=== PATIENT | male | born 1975 | race Caucasian/White ===

== ENCOUNTER 2016-02-13 17:40 | Observation (INO) | payer OTHER ==
[~2016-02-13] VITALS: Ht 165.1 cm; Wt 70.6 kg
[~2016-02-13 17:40] MED LIST: ADVI200T PO; AMBI5TAB PO; CAPS25CR TOP; CYMB1CAP4 PO; DEPA1TAB3 PO; DICL-235 PO; HYDR-4274 PO; HYDROXYZINE PO; LITH150C PO; LITH45TASA PO; No Home Meds; OLAN5TAB PO; RISP2TAB30 PO; ROBA750T4 PO; TRAZ50TA4 PO; VIST50CA PO; ZANA2CAP PO; ZOST0.25 EX; ZYPR10TA PO
[2016-02-13 19:15] LABS: BASO # 0.1 K/mm3 (0.0-0.2); BASO % 1.3 % (0.0-1.0); EOS # 0.4 K/mm3 (0.0-0.50); EOS % 4.2 % (0.0-3.0); LARGE UNSTAINED CELL # 0.2 K/mm3 (0.0-0.4); LARGE UNSTAINED CELL % 2.5 % (0.0-4.0); LYMPH # 2.8 K/mm3 (1.5-4.5); LYMPH % 29.3 % (24.0-44.0); MEAN CORPUSCULAR HEMOGLOBIN 32.1 pg (27.0-33.0); MEAN CORPUSCULAR HGB CONC 32.4 g/dl (32.0-36.5); MEAN CORPUSCULAR VOLUME 99.1 fl (80.0-96.0); MONO # 0.7 K/mm3 (0.0-0.8); NEUTROPHILS # 4.8 K/mm3 (1.8-7.7); NEUTROPHILS % 54.6 % (36.0-66.0); PLATELET COUNT, AUTOMATED 238 k/mm3 (150-450); RED CELL DISTRIBUTION WIDTH 13.4 % (11.5-14.5); WHITE BLOOD COUNT 8.9 K/mm3 (4.0-10.0)
[2016-02-13 19:27] LABS: ALBUMIN 3.7 GM/DL (3.2-5.2); ALBUMIN/GLOBULIN RATIO 1.19 (1.00-1.93); ALKALINE PHOSPHATASE 71 U/L (45-117); ALT/SGPT 19 U/L (12-78); ANION GAP 7 MEQ/L (8-16); AST/SGOT 14 U/L (15-37); BILIRUBIN,DIRECT 0.2 MG/DL (0.0-0.2); BILIRUBIN,TOTAL 0.6 MG/DL (0.2-1.0); BLOOD UREA NITROGEN 11 MG/DL (7-18); CALCIUM LEVEL 8.5 MG/DL (8.5-10.1); CARBON DIOXIDE LEVEL 28 MEQ/L (21-32); CHLORIDE LEVEL 108 MEQ/L (98-107); CREATININE FOR GFR 1.03 MG/DL (0.70-1.30); GLOMERULAR FILTRATION RATE > 60.0 (>60); GLUCOSE, FASTING 103 MG/DL (70-105); POTASSIUM SERUM 3.9 MEQ/L (3.5-5.1); SODIUM LEVEL 143 MEQ/L (136-145); TOTAL PROTEIN 6.8 GM/DL (6.4-8.2)
[2016-02-13 19:37] LABS: LITHIUM LEVEL 1.38 MEQ/L (0.60-1.20)
--- NOTE | 2016-02-13 19:50 | REPUSA ---
CLINICAL HISTORY: AMS TECHNIQUE: Multiple axial brain CT scan sections were obtained from base to vertex without contrast a dministration. COMMENTS: The study shows normal configuration of sella turcica. There are no intra or extra-axial collections. There is no mass effect or midline shift. There is no evidence of hematoma formation. No hydrocephal us is present. No abnormal calcifications are noted. Small cavum of septum pellucidum and cavum verg ae is noted. No significant abnormalities are seen either in the posterior fossa or supratentorial compartment. The sinuses and mastoid air cells are patent. IMPRESSION: No evidence of acute intracranial pathology. Thank you for your kind referral of this patient.
[2016-02-13 20:11] LABS: AMPHETAMINES LEVEL URINE POSITIVE (NEGATIVE); BENZODIAZEPINES URINE NEGATIVE (NEGATIVE); COCAINE METABOLITE URINE NEGATIVE (NEGATIVE); CONTROL LINE INT CTR LINE PRESENT; METHADONE URINE NEGATIVE (NEGATIVE); OPIATES URINE NEGATIVE (NEGATIVE); TRICYCLIC ANTIDEPRESS URINE NEGATIVE (NEGATIVE)
[2016-02-13] MEDS ORDERED: ACETAMINOPHEN TAB 650MG DOSE (2X325MG) PO PRN (21:00)
[2016-02-13] MEDS: MIRTAZAPINE 15 MG TAB PO SCH (21:00)
[2016-02-13] MEDS: GABAPENTIN 300 MG CAP PO SCH (21:00)
[2016-02-13] MEDS ORDERED: MIRT30TA3 PO (21:00)
[2016-02-13] MEDS ORDERED: LITH45TASA PO (21:00)
[2016-02-13] MEDS ORDERED: NEUR300C PO (21:00)
--- NOTE | 2016-02-13 22:15 | EDDOCDS ---
Physician Documentation [facility] Name: Thomas Berkowitz Age: 41 yrs Sex: Male : 1975 Arrival Date: 02/13/2016 Time: 17:40 Bed 10 Private MD: Marlin Hammond Disposition: 02/12 20:27 Critical Care: Critical care not applicable. pc Disposition: 02/13/16 20:32 Hospitalization ordered by Lissette Eden for Inpatient Admission. Preliminary diagnosis are Altered mental status, unspecified, Poisoning by other psychotropic drugs, accidental (unintentional) - lithium toxicity, Other stimulant abuse - amphetamines. - Bed requested for 4 [place]. - Status is Inpatient Admission. mgs - Condition is Stable. - Problem is new. - Symptoms are unchanged. HPI: 19:42 This 41 yrs old Male presents to ER via Walkin/Carried/Asstd with complaints pc of Altered Mental Status. 19:42 The history is obtained from the patient's family/friend. A reliable history and/or pc examination was not able to be obtained, due to AMS. He woke up from a nap and has been extremely drowsy, confused, slurring his speech. He is unable to give a history as he falls asleep without stimulation and when awakened, is aggressive and verbally abusive. His family deny any drug abuse or overdose but he has a history of the same. He has not had any new medications except ABX for a dental abscess and a short course of tramadol 4 weeks ago. He has not been ill, has not had any fevers, cough, GI or symptoms. At their worst, the symptoms were moderate. In the emergency department, the symptoms are unchanged. The patient has been recently seen at the [facility], last month. Historical: - Allergies: no known allergies; - Home Meds: 1. gabapentin 300 mg oral cap 3 times per day 2. lithium carbonate 450 mg Oral TbER 1 tab 2 times per day 3. mirtazapine 30 mg Oral tab 1 tab once daily 4. Seroquel Oral nightly - PMHx: Bipolar disorder; explosive impulse disorder; - PSHx: oral surgery; left foot surgery; - The history from nurses notes was reviewed: and I agree with what is documented. - Social history: Smoking status: Patient uses tobacco products, heavy tobacco smoker. No barriers to communication noted, The patient speaks fluent [place]ian, Speaks appropriately for age. - Family history: Not pertinent. - : The pt / caregiver states he / she is not on anticoagulants. Home medication list is obtained from the patient, [facility] import data. - Hospitalizations: : No recent hospitalization is reported. - Exposure Risk Screening:: None identified. - Immunization history:: All immunizations up-to-date. - Social history:: the patient is a non-smoker, the patient does not drink alcohol. ROS: 19:42 All systems are negative except as listed. pc Exam: 19:42 General Appearance: the patient is in mild distress, lethargic. pc 19:42 EENT: normal eye inspection, ears, nose and throat normal, pharynx normal, mucous membranes moist 19:42 Neck: The exam reveals no acute abnormalities. ROM is normal and painless. No nuchal rigidity is noted.. 19:42 Respiratory: no respiratory distress, normal breath sounds. 19:42 CVS: regular pulse rate, regular rhythm, normal S1 and S2, no murmurs, strong peripheral pulses. 19:42 Abdomen: soft, non-tender, no organomegaly, normal bowel sounds. 19:42 Back: normal inspection. 19:42 Skin: skin color is normal, warm, dry. 19:42 Extremities: The extremities have a grossly normal appearance, are non-tender, without acute ROM abnormalities. 19:42 Neuro: cranial nerves normal as tested, no motor deficits, no sensory deficits, normal gait, unable to test orientation because the patient is uncooperative. 19:42 Psych: aggressive, vioilent. Vital Signs: 17:42 BP 117 / 73; Pulse 104; Resp 18; Temp 97.9; Pulse Ox 98% ; Weight 68.04 kg / 150 lbs; cmb Height 5 ft. 6 in. (167.64 cm); Pain 0/10; 18:11 BP 119 / 66 (auto/); ead 18:13 Pulse 94 MON; Pulse Ox 97% ; ead 18:26 BP 117 / 64 (auto/); ead 18:26 Pulse 90 MON; Resp 16; Pulse Ox 99% on R/A; ead 18:56 BP 102 / 57 (auto/); mgs 18:56 Pulse 88 MON; Pulse Ox 99% ; mgs 19:11 BP 102 / 64 (auto/); mgs 19:11 Pulse 82 MON; Pulse Ox 97% ; mgs 19:26 BP 108 / 66 (auto/); mgs 19:26 Pulse 78 MON; Pulse Ox 96% ; mgs 19:41 BP 115 / 80 (auto/); mgs 19:41 Pulse 82 MON; mgs 19:56 BP 110 / 66 (auto/); mgs 19:56 Pulse 80 MON; Pulse Ox 99% ; mgs 20:11 BP 104 / 62 (auto/); mgs 20:11 Pulse 80 MON; Pulse Ox 97% ; mgs 20:26 BP 106 / 63 (auto/); mgs 20:26 Pulse 86 MON; Pulse Ox 97% ; mgs 20:41 BP 106 / 65 (auto/); mgs 20:41 Pulse 84 MON; Pulse Ox 98% ; mgs 20:56 BP 107 / 62 (auto/); mgs 20:56 Pulse 84 MON; Pulse Ox 100% ; mgs 21:11 BP 102 / 63 (auto/); mgs 21:11 Pulse 82 MON; Pulse Ox 100% ; mgs 21:25 BP 102 / 62 (auto/); mgs 21:25 Pulse 84 MON; Pulse Ox 100% ; mgs 21:26 BP 102 / 62; Pulse 79; Resp 18 S; Temp 97.2(O); Pulse Ox 100% on R/A; Pain 0/10; jp4 21:26 BP 105 / 61 (auto/); mgs 21:26 Pulse 78 MON; Pulse Ox 100% ; mgs 21:41 BP 100 / 58 (auto/); mgs 21:41 Pulse 82 MON; Pulse Ox 100% ; mgs 21:56 BP 102 / 60 (auto/); mgs 21:56 Pulse 80 MON; Pulse Ox 100% ; mgs 17:42 Body Mass Index 24.21 (68.04 kg, 167.64 cm) cmb MDM: 19:05 Machine Cementer/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 pc 19:05 Accucheck ordered. pc 19:05 IV Saline Lock ordered. pc 19:05 Rhythm Strip to chart ordered. pc 19:06 Acetaminophen Level Ordered. EDMS 19:06 CBC with Diff Ordered. EDMS 19:06 Cardiac Injury Profile Ordered. EDMS 19:06 Drug Eval Toxicology ED Only Ordered. EDMS 19:06 Liver Profile Ordered. EDMS 19:06 MED Profile Ordered. EDMS 19:06 Salicylate Level Ordered. EDMS 19:06 Thyroid Stimulating Hormone Ordered. EDMS 19:06 Troponin Ordered. EDMS 19:06 [place] Level Ordered. EDMS 19:07 CT Head Without Contrast Ordered. EDMS 19:07 ECG WITH READING ER PHYS+CARDIAG ordered. EDMS 19:17 Test interpretation: EKG. pc 19:22 Fingerstick Blood Sugar Ordered. EDMS 19:28 Straight cath ordered. davin 19:41 Acetaminophen Level Reviewed. pc 19:41 CBC with Diff Reviewed. pc 19:41 Cardiac Injury Profile Reviewed. pc 19:41 Liver Profile Reviewed. pc 19:41 MED Profile Reviewed. pc 19:41 Salicylate Level Reviewed. pc 19:41 [place] Level Reviewed. pc 19:41 Thyroid Stimulating Hormone Reviewed. pc 19:41 Troponin Reviewed. pc 19:41 Fingerstick Blood Sugar Reviewed. pc 19:42 Differential Diagnosis: AMS r/o drug ingestion/ICH/lithium toxicity/overdose. Plan: pc labs, EKG, CT. 20:21 Drug Eval Toxicology ED Only Reviewed. pc 20:27 Data reviewed: old medical records, vital signs, nurses notes, EKG(s), lab test pc results, all radiology studies and available results. Test interpretation: LAB - all labs as ordered have been reviewed, interpreted and considered in the overall management of the clinical presentation; interpreted by Radiologist and personally reviewed, Head CT; no acute disease. The patient has been re-examined and re-evaluated. There is no appreciated change of the patient's symptoms at this time. Physician consultation: Dr. Lissette Eden was contacted at 20:28, regarding admission, and will see patient in ED. Disposition: The historical points, examination findings, and any diagnostic results supporting the provided diagnosis, were discussed with the patient or legal guardian. The need for further work-up and/or treatment in the hospital was explained. 20:28 BED REQUEST+ADM ordered. EDMS 21:03 Financial registration complete. [email or web address] 21:03 Admission / Observation Status ordered. EDMS 21:03 REGULAR DIET ordered. EDMS 21:05 COMPLETE BLOOD COUNT Ordered. EDMS 21:05 BASIC METABOLIC PROFILE Ordered. EDMS 21:05 LITHIUM LEVEL Ordered. EDMS EC:17 Rate is 85 beats/min. Rhythm is regular, Normal Sinus Rhythm. QRS [place] is Normal. PA pc interval is normal. QRS interval is normal. QT interval is normal. No Q waves. T waves are Normal. ST Segment is elevated in leads I, II, V2, V3, V4, V5, V6, <1mm. Clinical impression: Normal Sinus Rhythm and ST-T changes consistent with early repolarization. No change from previous ECG on April 18, 2015. Point of Care Testing: Blood Glucose: 19:15 Blood Glucose: 76 mg/dL; mgs Ranges: Signatures: Dispatcher [employer] EDMS Simon Greene MD MD pc Johnson, Bruce, RN RN umair Cleary, Lucia Edge, RN RN davin Jose, OdessaNayana, Courtroom Clerk Unit ml3 Katalina SmithRN William Tsang RN RN mgs Sorenson, Kimberly, Reg Reg [id number] The chart was reviewed and I authenticate all verbal orders and agree with the evaluation and treatment provided.Corrections: (The following items were deleted from the chart) 19:21 19:17 Rate is 85 beats/min. Rhythm is regular, Normal Sinus Rhythm. QRS [place] is Normal. pc PA interval is normal. QRS interval is normal. QT interval is normal. No Q waves. T waves are Normal. No ST changes noted. Clinical impression: Normal Sinus Rhythm. pc MTDD
--- NOTE | 2016-02-13 22:15 | EDDOCDS ---
Nurse's Notes [facility] Name: Thomas Berkowitz Age: 41 yrs Sex: Male : 1975 Arrival Date: 02/13/2016 Time: 17:40 Bed 10 Private MD: Marlin Hammond Diagnosis: Altered mental status, unspecified;Poisoning by other psychotropic drugs, accidental (unintentional)-lithium toxicity;Other stimulant abuse-amphetamines Presentation: 02/12 17:56 Presenting complaint: Patient states: woke up from nap today - states unable to bcj remember things - very unsteady on feet. very drowsey after nap. denies recent fall head injury. denies ETOH / street drug use today. denies abuse of RX meds. + photophobia. Adult Sepsis Screening: Patient has new or worsening altered mentation (1 point). Patient's respiratory rate is less than 22. Systolic blood pressure is greater than 100. Patient has a qSOFA score of 1- Negative Sepsis Screen. Suicide/Homicide risk assessment- the patient denies having any suicidal and/or homicidal ideations and does not present with any other emotional, behavioral or mental health complaints. Status: Patient is not a director of business services or dependent. Transition of care: patient was not received from another setting of care. Red Flag criteria, patient assessed and taken directly to a bed. 17:56 Acuity: TEENA Level 3 [facility] 17:56 Method Of Arrival: Walkin/Carried/Asstd bcj Triage Assessment: 18:00 General: Appears in no apparent distress, comfortable, Behavior is cooperative. Pain: bcj Denies pain. HIV screening NA for this visit Offered previously. Neurological: Level of Consciousness is awake, alert, Oriented to person, time, Grain Elevator Agent are equal bilaterally Moves all extremities. Gait is unsteady, Speech is normal, Facial symmetry appears normal. Derm: Skin is pink, warm & dry. Historical: - Allergies: no known allergies; - Home Meds: 1. gabapentin 300 mg oral cap 3 times per day 2. lithium carbonate 450 mg Oral TbER 1 tab 2 times per day 3. mirtazapine 30 mg Oral tab 1 tab once daily 4. Seroquel Oral nightly - PMHx: Bipolar disorder; explosive impulse disorder; - PSHx: oral surgery; left foot surgery; - The history from nurses notes was reviewed: and I agree with what is documented. - Social history: Smoking status: Patient uses tobacco products, heavy tobacco smoker. No barriers to communication noted, The patient speaks fluent Nauruan, Speaks appropriately for age. - Family history: Not pertinent. - : The pt / caregiver states he / she is not on anticoagulants. Home medication list is obtained from the patient, Collect import data. - Hospitalizations: : No recent hospitalization is reported. - Exposure Risk Screening:: None identified. - Immunization history:: All immunizations up-to-date. - Social history:: the patient is a non-smoker, the patient does not drink alcohol. Screenin:02 Screening information is obtained from the patient. Fall risk: No risks identified. mgs Assistance ADL's: requires no assistance with activities of daily living. Abuse/DV Screen: The patient / caregiver reports he/she is: not in a situation that causes fear, pain or injury. Nutritional screening: No deficits noted. home support is adequate. 22:12 Advance Directives: Currently, there is no health care proxy. There is no active DNR mgs order. Assessment: 18:13 General: Appears in no apparent distress, unkempt, Pt answering questions ead appropriately, maintains eyes closed, states "I just feel sleepy." Pt denies alcohol or drug use today. Pt's friend at bedside reports "I think someone probably slipped him something." Pt has minimal memory of this morning prior to taking a nap this afternoon. States he is unsure where he was when he woke up. . Pain: Denies pain. Neurological: Level of Consciousness is awake, lethargic, obeys commands, Oriented to person, place, time. Cardiovascular: Capillary refill < 3 seconds Heart tones S1 S2 present Chest pain is denied. Respiratory: Airway is patent Respiratory effort is even, unlabored, Breath sounds are clear bilaterally. Derm: Skin is pink, warm & dry. 19:01 General: Appears in no apparent distress, unkempt, Behavior is drowsy, Patient keeps mgs eyes closed unless asked to open them, is very drowsy. Pain: Denies pain. Neurological: Level of Consciousness is lethargic, obeys commands, Oriented to person, place, time. Cardiovascular: Capillary refill < 3 seconds Heart tones S1 S2 present. Respiratory: Airway is patent Respiratory effort is even, unlabored, Respiratory pattern is regular, symmetrical. Derm: Skin is pink, warm & dry. 19:50 Adult Sepsis Screening: The patient does not have new or worsening altered mentation. mgs Patient's respiratory rate is less than 22. Systolic blood pressure is greater than 100. 19:51 General: Appears in no apparent distress, Behavior is drowsy. Pain: Denies pain. mgs Neurological: Level of Consciousness is awake, alert, Oriented to person, place, time. Cardiovascular: Capillary refill < 3 seconds Heart tones S1 S2 present. Respiratory: Airway is patent Respiratory effort is even, unlabored, Respiratory pattern is regular, symmetrical. Derm: Skin is pink, warm & dry. 21:04 General: Appears in no apparent distress, to be sleeping. Cardiovascular: Capillary mgs refill < 3 seconds Rhythm is sinus rhythm No ectopy. Respiratory: Airway is patent Respiratory effort is even, unlabored, Respiratory pattern is regular, symmetrical. Derm: Skin is pink, warm & dry. 22:11 General: Appears in no apparent distress, to be sleeping. Cardiovascular: Capillary mgs refill < 3 seconds. Respiratory: Airway is patent Respiratory effort is even, unlabored, Respiratory pattern is regular, symmetrical. Derm: Skin is pink, warm & dry. Vital Signs: 17:42 BP 117 / 73; Pulse 104; Resp 18; Temp 97.9; Pulse Ox 98% ; Weight 68.04 kg; Height 5 cmb ft. 6 in. (167.64 cm); Pain 0/10; 18:11 BP 119 / 66 (auto/); ead 18:13 Pulse 94 MON; Pulse Ox 97% ; ead 18:26 BP 117 / 64 (auto/); ead 18:26 Pulse 90 MON; Resp 16; Pulse Ox 99% on R/A; ead 18:56 BP 102 / 57 (auto/); mgs 18:56 Pulse 88 MON; Pulse Ox 99% ; mgs 19:11 BP 102 / 64 (auto/); mgs 19:11 Pulse 82 MON; Pulse Ox 97% ; mgs 19:26 BP 108 / 66 (auto/); mgs 19:26 Pulse 78 MON; Pulse Ox 96% ; mgs 19:41 BP 115 / 80 (auto/); mgs 19:41 Pulse 82 MON; mgs 19:56 BP 110 / 66 (auto/); mgs 19:56 Pulse 80 MON; Pulse Ox 99% ; mgs 20:11 BP 104 / 62 (auto/); mgs 20:11 Pulse 80 MON; Pulse Ox 97% ; mgs 20:26 BP 106 / 63 (auto/); mgs 20:26 Pulse 86 MON; Pulse Ox 97% ; mgs 20:41 BP 106 / 65 (auto/); mgs 20:41 Pulse 84 MON; Pulse Ox 98% ; mgs 20:56 BP 107 / 62 (auto/); mgs 20:56 Pulse 84 MON; Pulse Ox 100% ; mgs 21:11 BP 102 / 63 (auto/); mgs 21:11 Pulse 82 MON; Pulse Ox 100% ; mgs 21:25 BP 102 / 62 (auto/); mgs 21:25 Pulse 84 MON; Pulse Ox 100% ; mgs 21:26 BP 102 / 62; Pulse 79; Resp 18 S; Temp 97.2(O); Pulse Ox 100% on R/A; Pain 0/10; jp4 21:26 BP 105 / 61 (auto/); mgs 21:26 Pulse 78 MON; Pulse Ox 100% ; mgs 21:41 BP 100 / 58 (auto/); mgs 21:41 Pulse 82 MON; Pulse Ox 100% ; mgs 21:56 BP 102 / 60 (auto/); mgs 21:56 Pulse 80 MON; Pulse Ox 100% ; mgs 17:42 Body Mass Index 24.21 (68.04 kg, 167.64 cm) [facility] Vitals: 17:42 Log In Time: February 13, 2016 at 17:38. [facility] ED Course: 17:42 Patient visited by Nicole Dasilva. b 17:42 Marlin Hammond is Private Physician. b 17:42 Patient moved to Waiting b 17:42 RN notified that patient meets Red Flag criteria. b 17:54 Katalina Smith,RN is Primary Nurse. [facility] 17:54 Patient moved to 10 [facility] 17:59 Triage Initiated bcj 18:01 Patient visited by Michele Rutherford, XAVIER. j 18:13 Inserted saline lock: 18 gauge in left antecubital area and blood collected. The ead patient tolerated the procedure well. 19:03 Patient visited by William Kowalski,XAVIER. mgs 19:03 Simon Greene MD is Attending Physician. pc 19:08 Kinde Level Sent. mgs 19:08 Acetaminophen Level Sent. mgs 19:08 CBC with Diff Sent. mgs 19:08 Cardiac Injury Profile Sent. mgs 19:08 Liver Profile Sent. mgs 19:08 MED Profile Sent. mgs 19:08 Salicylate Level Sent. mgs 19:09 Thyroid Stimulating Hormone Sent. mgs 19:09 Troponin Sent. mgs 19:13 Patient visited by Dilip Quan. jp4 19:13 EKG done. (by ED staff). Reviewed by Simon Greene MD. jp4 19:17 Patient visited by Simon Greene MD. pc 19:50 Drug Eval Toxicology ED Only Sent. mgs 19:52 Patient visited by William Kowalski,XAVIER. mgs 20:25 Lissette Eden final inspection supervisor. ys2 20:32 Lissette Eden is Hospitalizing Provider. pc 20:40 CT Head Without Contrast Returned. EDMS 21:04 Patient visited by William Kowalski,XAVIER. mgs 21:27 Patient visited by Dilip Quan. jp4 22:12 The patient / caregiver is instructed regarding the plan of care and ED course. mgs 22:12 No procedures done that require assistance. mgs 22:14 Patient visited by William Kowalski,XAVIER. mgs Point of Care Testing: Blood Glucose: 19:15 Blood Glucose: 76 mg/dL; mgs Ranges: Order Results: Lab Order: Acetaminophen Level; SPEC'M 02/13/16 18:09 Test: ACETAMINOPHEN LEVEL; Value: < 2.0; Range: 10.0-30.0; Abnormal: Below low normal; Units: UG/ML; Status: F Lab Order: CBC with Diff; SPEC'M 02/13/16 18:09 Test: WHITE BLOOD COUNT; Value: 8.9; Range: 4.0-10.0; Units: K/mm3; Status: F Test: RED BLOOD COUNT; Value: 4.68; Range: 4.30-6.10; Units: M/mm3; Status: F Test: HEMOGLOBIN; Value: 15.0; Range: 14.0-18.0; Units: g/dl; Status: F Test: HEMATOCRIT; Value: 46.3; Range: 42.0-52.0; Units: %; Status: F Test: MEAN CORPUSCULAR VOLUME; Value: 99.1; Range: 80.0-96.0; Abnormal: Above high normal; Units: fl; Status: F Test: MEAN CORPUSCULAR HEMOGLOBIN; Value: 32.1; Range: 27.0-33.0; Units: pg; Status: F Test: MEAN CORPUSCULAR HGB CONC; Value: 32.4; Range: 32.0-36.5; Units: g/dl; Status: F Test: RED CELL DISTRIBUTION WIDTH; Value: 13.4; Range: 11.5-14.5; Units: %; Status: F Test: PLATELET COUNT, AUTOMATED; Value: 238; Range: 150-450; Units: k/mm3; Status: F Test: NEUTROPHILS %; Value: 54.6; Range: 36.0-66.0; Units: %; Status: F Test: LYMPH %; Value: 29.3; Range: 24.0-44.0; Units: %; Status: F Test: MONO %; Value: 8.0; Range: 0.0-5.0; Abnormal: Above high normal; Units: %; Status: F Test: EOS %; Value: 4.2; Range: 0.0-3.0; Abnormal: Above high normal; Units: %; Status: F Test: BASO %; Value: 1.3; Range: 0.0-1.0; Abnormal: Above high normal; Units: %; Status: F Test: LARGE UNSTAINED CELL %; Value: 2.5; Range: 0.0-4.0; Units: %; Status: F Test: NEUTROPHILS #; Value: 4.8; Range: 1.8-7.7; Units: K/mm3; Status: F Test: LYMPH #; Value: 2.8; Range: 1.5-4.5; Units: K/mm3; Status: F Test: MONO #; Value: 0.7; Range: 0.0-0.8; Units: K/mm3; Status: F Test: EOS #; Value: 0.4; Range: 0.0-0.50; Units: K/mm3; Status: F Test: BASO #; Value: 0.1; Range: 0.0-0.2; Units: K/mm3; Status: F Test: LARGE UNSTAINED CELL #; Value: 0.2; Range: 0.0-0.4; Units: K/mm3; Status: F Lab Order: Cardiac Injury Profile; SPEC'M 02/13/16 18:09 Test: CPK CREATINE PHOSPHOKINASE; Value: 63; Range: 39-308; Units: U/L; Status: F Test: CK-MB VALUE MASS; Value: 2.6; Range: 0.0-3.6; Units: NG/ML; Status: F Test: MB/CK RELATIVE INDEX; Value: 4.12; Range: < OR =4; Abnormal: Above high normal; Status: F Test Note: ; DIAGNOSIS CRITERIA MMB ng/ml Relative Index (RI) NON-AMI < or = 5 N/A RODRIGUEZ ZONE > 5 < or = 4 AMI > 5 > 4 Lab Order: Drug Eval Toxicology ED Only; SPEC'M 02/13/16 19:48 Test: AMPHETAMINES LEVEL URINE; Value: POSITIVE; Range: NEGATIVE; Abnormal: Above high normal; Status: F Test: BARBITURATES URINE; Value: NEGATIVE; Range: NEGATIVE; Status: F Test: BENZODIAZEPINES URINE; Value: NEGATIVE; Range: NEGATIVE; Status: F Test: CANNABINOIDS URINE; Value: NEGATIVE; Range: NEGATIVE; Status: F Test: COCAINE METABOLITE URINE; Value: NEGATIVE; Range: NEGATIVE; Status: F Test: METHADONE URINE; Value: NEGATIVE; Range: NEGATIVE; Status: F Test: OPIATES URINE; Value: NEGATIVE; Range: NEGATIVE; Status: F Test: TRICYCLIC ANTIDEPRESS URINE; Value: NEGATIVE; Range: NEGATIVE; Status: F Test Note: ; ALL PRESUMPTIVE POSITIVE FINDINGS ARE UNCONFIRMED NORMAL VALUES THRESHOLD IN NG/ML AMPHETAMINES 1000 METHAMPHETAMINES 1000 BARBITURATES 300 BENZODIAZEPINES 300 CANNABINOIDS (THC) 50 COCAINE METABOLITE 300 METHADONE 300 OPIATES 300 PHENCYCLIDINE 25 TRICYCLIC ANTIDEPRESSANTS 1000 RESULTS ARE FOR MEDICAL PURPOSES ONLY. ALL URINE SPECIMENS WILL BE SAVED FOR 3 DAYS. IF CONFIRMATION OF A PRESUMPTIVE POSTIVE SCREEN RESULT IS DESIRED, CALL CHEMISTRY ([phone]) AND REQUEST URINE TO BE SENT TO REFERENCE LAB. FOR A LIST OF CLOSELY RELATED COMPOUNDS PLEASE CALL THE LAB. Lab Order: Liver Profile; SPEC'M 02/13/16 18:09 Test: AST/SGOT; Value: 14; Range: 15-37; Abnormal: Below low normal; Units: U/L; Status: F Test: ALT/SGPT; Value: 19; Range: 12-78; Units: U/L; Status: F Test: ALKALINE PHOSPHATASE; Value: 71; Range: 45-117; Units: U/L; Status: F Test: BILIRUBIN,TOTAL; Value: 0.6; Range: 0.2-1.0; Units: MG/DL; Status: F Test: BILIRUBIN,DIRECT; Value: 0.2; Range: 0.0-0.2; Units: MG/DL; Status: F Test: TOTAL PROTEIN; Value: 6.8; Range: 6.4-8.2; Units: GM/DL; Status: F Test: ALBUMIN; Value: 3.7; Range: 3.2-5.2; Units: GM/DL; Status: F Test: ALBUMIN/GLOBULIN RATIO; Value: 1.19; Range: 1.00-1.93; Status: F Lab Order: MED Profile; SPEC'M 02/13/16 18:09 Test: GLUCOSE, FASTING; Value: 103; Range: 70-105; Units: MG/DL; Status: F Test: BLOOD UREA NITROGEN; Value: 11; Range: 7-18; Units: MG/DL; Status: F Test: CREATININE FOR GFR; Value: 1.03; Range: 0.70-1.30; Units: MG/DL; Status: F Test: GLOMERULAR FILTRATION RATE; Value: > 60.0; Range: >60; Status: F Test: SODIUM LEVEL; Value: 143; Range: 136-145; Units: MEQ/L; Status: F Test: POTASSIUM SERUM; Value: 3.9; Range: 3.5-5.1; Units: MEQ/L; Status: F Test: CHLORIDE LEVEL; Value: 108; Range: 98-107; Abnormal: Above high normal; Units: MEQ/L; Status: F Test: CARBON DIOXIDE LEVEL; Value: 28; Range: 21-32; Units: MEQ/L; Status: F Test: ANION GAP; Value: 7; Range: 8-16; Abnormal: Below low normal; Units: MEQ/L; Status: F Test: CALCIUM LEVEL; Value: 8.5; Range: 8.5-10.1; Units: MG/DL; Status: F Test Note: ; Units are mL/min/1.73 m2 Chronic Kidney Disease Staging per NKF: Stage I & II GFR >=60 Normal to Mildly Decreased Stage III GFR 30-59 Moderately Decreased Stage IV GFR 15-29 Severely Decreased Stage V GFR <15 Very Little GFR Left ESRD GFR <15 on REED OR WIND INSTRUMENT TUNER Lab Order: Salicylate Level; SPEC'M 02/13/16 18:09 Test: SALICYLATE LEVEL; Value: 2.0; Range: 5.0-30.0; Abnormal: Below low normal; Units: MG/DL; Status: F Lab Order: Thyroid Stimulating Hormone; SPEC'M 02/13/16 18:09 Test: THYROID STIMULATING HORMONE; Value: 0.711; Range: 0.358-3.740; Units: uIU/ML; Status: F Lab Order: Troponin; SPEC'02/13/16 18:09 Test: TROPONIN I; Value: < 0.02; Range: < 0.10; Units: NG/ML; Status: F Test Note: ; Troponin I Reference Interval for Siemens Watchup LOCI: 99th Percentile= 0.00-0.045 ng/ml Risk Stratification: <= 0.10 ng/ml Decreased Risk for Adverse Clinical Events. 0.10-1.50 ng/ml Increased Risk for Adverse Clinical Events. Evaluation of additional criterion and/or repeat testing in 2-6 hours is suggested to rule out myocardial damage. >= 1.50 ng/ml Indicative of Myocardial Injury. Lab Order: Kinde Level; SPEC'02/13/16 18:09 Test: LITHIUM LEVEL; Value: 1.38; Range: 0.60-1.20; Abnormal: Above high normal; Units: MEQ/L; Status: F Lab Order: Fingerstick Blood Sugar; SPEC'M 02/13/16 19:14 Test: BEDSIDE GLUCOSE; Value: 76; Range: 70-105; Units: MG/DL; Status: F Radiology Order: CT Head Without Contrast Test: CT Head Without Contrast REASON FOR EXAMINATION: AMS; ; CLINICAL HISTORY: AMS; TECHNIQUE: Multiple axial brain CT scan sections were obtained from base to vertex without contrast a; dministration.; COMMENTS:; The study shows normal configuration of sella turcica. There are no intra or extra-axial collections.; There is no mass effect or midline shift. There is no evidence of hematoma formation. No hydrocephal; us is present. No abnormal calcifications are noted. Small cavum of septum pellucidum and cavum verg; ae is noted.; No significant abnormalities are seen either in the posterior fossa or supratentorial compartment.; The sinuses and mastoid air cells are patent.; IMPRESSION:; No evidence of acute intracranial pathology.; Thank you for your kind referral of this patient.; ; Outcome: 20:32 Decision to Hospitalize by Provider. pc 22:12 Discharge Assessment: Patient awake, alert and oriented x 3. No cognitive and/or mgs functional deficits noted. Patient verbalized understanding of disposition instructions. patient administered narcotics - no. The following High Risk Discharge criteria are identified: None. Admitted to Med/Surg. Condition: stable. Property :Personal belongings accompany Pt. 22:13 CT Study completed. mgs 22:14 Patient left the ED. mgs Signatures: Dispatcher [employer] EDMS Simon Greene MD MD pc Johnson, Bruce, RN RN Nicole Sood Emily,RN RN Dilip Moreno jp4 William Kowalski,XAVIER RN Lissette Worrell ys2 LATHA
[2016-02-13 22:20] VITALS: BP 104/59
--- NOTE | 2016-02-13 23:17 | HPE ---
DATE OF ADMISSION: 02/13/2016 PRIMARY CARE PROVIDER: Marlin Hammond, Nurse Practitioner CHIEF COMPLAINT: Altered mental status. HISTORY OF THE PRESENT ILLNESS: The patient is a 41-year-old male with a past medical history significant for bipolar and explosive impulse disorder, presented to [facility] on 02/13/2016 for altered mental status. During admission, the patient had difficulty maintaining prolonged alertness and awakeness to answer the questions. Some of the patient's history obtained from the patient's twin brother who visits the patient on several occasions normally. Yesterday night, the patient went out to a friend's place, and he had a few drinks. When he woke up from a nap this morning, the patient started having elevated mood and started throwing stuff around the house. And the patient became very physically aggressive. After awhile, the patient started to have decreased alertness and awakeness and the patient became very unsteady on his feet and became very drowsy. Per the twin brother, the patient never had similar symptoms in the past. Denies any recreational drug use. Denies any head trauma. Denies any recent medication changes. Per patient, the patient does not complain of any other acute symptoms. When the patient arrived to the emergency room, vital signs were in the normal range. Urine toxicology showed positive for amphetamine. ALLERGIES: No known drug allergies. HOME MEDICATIONS: - gabapentin 300 mg by mouth three times a day - lithium 450 mg by mouth twice a day - mirtazapine 30 mg by mouth daily - Seroquel by mouth nightly; patient does not remember the dose. PAST MEDICAL HISTORY: Bipolar disorder. Explosive impulsive disorder. PAST SURGICAL HISTORY: Foot surgery. Oral surgery. SOCIAL HISTORY: The patient continues to smoke one pack daily for 16 years. Denies any alcohol use. Denies any history of marijuana use previously. Currently denied any recreational drug use. Denied any amphetamine use. REVIEW OF SYSTEMS: GENERAL: No fever, no chills. HEENT: Denies any vision change, auditory changes. CARDIOVASCULAR: Denies any chest pain. No palpitations. RESPIRATORY: Denies any shortness of breath, cough, or sputum production. GASTROINTESTINAL: Denies any nausea, vomiting, abdominal pain or diarrhea. NEUROLOGICAL: Denies any numbness or tingling. MUSCULOSKELETAL: Denies any muscle pain or joint pain. OBJECTIVE: VITAL SIGNS: Blood pressure is 117/64, pulse is 90, respirations 16, temperature is 97.9, pulse oximetry is 99% in room air. Body weight is 68 kg. Body height is 167 cm. GENERAL: The patient is drowsy, unable to maintain alertness and awakeness. Patient is oriented when he is awake. HEENT: Normocephalic, atraumatic. Extraocular motor grossly intact. CARDIOVASCULAR: Positive S1, S2, regular rate. LUNGS: Clear to auscultation bilaterally. ABDOMEN: Soft, nontender, nondistended. Bowel sounds present. No rebound, no guarding. EXTREMITIES: No edema, no cyanosis, no calf tenderness. NEUROLOGICAL: Sensation to fine touch grossly intact. Muscle strength 5/5. Cranial nerves II-XII grossly intact. LABORATORY DATA: WBC is 8.9, hemoglobin is 15, hematocrit is 46.3, platelet count is 238. Sodium 143, potassium 3.9, chloride is 108, carbon dioxide is 28, BUN 11, creatinine 1.03, GFR greater than 60, fasting glucose is 103, calcium is 8.5, total bilirubin is 0.6, direct bilirubin is 0.2. AST 14, ALT 19, alkaline phosphatase is 71. Total CK is 63. CK-MB is 2.6. Troponin I is less than 0.02. Total protein is 6.8. Albumin 3.7. TSH is 0.711. Urine toxicology is positive for amphetamine. Urine lithium level is 1.38. IMAGING STUDIES: CT of the head without contrast showed no evidence of acute intracranial pathology. ASSESSMENT AND PLAN: 1. Altered mental status. The patient will be admitted to medical-surgical floor under observation status. There are several possible etiologies. First one will be methamphetamine use. Per patient, the patient never used it before. The patient has no history of amphetamine use; however, urine toxicology screen shows positive for amphetamine. It could be the patient received illicit drugs during the democrat without knowing that. Currently, the patient may be recovering from the amphetamine use. Another possibility could be the lithium overdose. The patient has been taking lithium 450 mg by mouth twice a day for several months. Currently, the level is mildly elevated. Will continue to monitor levels. We will hold the tomorrow's morning dose due to the elevated lithium level. 2. History of bipolar disorder. Continue gabapentin, lithium, mirtazapine and Seroquel. Will adjust lithium dose according to repeated lab. 3. History of explosive impulsive disorder. See the medication on bipolar disorder. 4. Deep vein thrombosis (DVT) prophylaxis. On Lovenox. MTDD
[2016-02-14 05:55] LABS: MEAN CORPUSCULAR HEMOGLOBIN 31.9 pg (27.0-33.0); MEAN CORPUSCULAR HGB CONC 31.6 g/dl (32.0-36.5); RED CELL DISTRIBUTION WIDTH 13.2 % (11.5-14.5); WHITE BLOOD COUNT 7.6 K/mm3 (4.0-10.0)
[2016-02-14 06:00] VITALS: BP 104/68
[2016-02-14 06:14] LABS: ANION GAP 6 MEQ/L (8-16); BLOOD UREA NITROGEN 11 MG/DL (7-18); CALCIUM LEVEL 8.7 MG/DL (8.5-10.1); CARBON DIOXIDE LEVEL 28 MEQ/L (21-32); CHLORIDE LEVEL 110 MEQ/L (98-107); CREATININE FOR GFR 0.83 MG/DL (0.70-1.30); GLOMERULAR FILTRATION RATE > 60.0 (>60); GLUCOSE, FASTING 87 MG/DL (70-105); POTASSIUM SERUM 4.1 MEQ/L (3.5-5.1); SODIUM LEVEL 144 MEQ/L (136-145)
[2016-02-14 06:21] LABS: LITHIUM LEVEL 0.42 MEQ/L (0.60-1.20)
[2016-02-14] MEDS ORDERED: LITHIUM CARBONATE 450 MG **CR** TAB PO SCH ×2 (09:00→21:00)
[2016-02-14] MEDS: ENOXAPARIN 40 MG/0.4 ML SYRINGE (J1650) SC SCH (09:08)
[2016-02-14] MEDS: GABAPENTIN 300 MG CAP PO SCH ×3 (09:08→20:24)
[2016-02-14] MEDS ORDERED: SERO1TAB2 PO (09:16)
[2016-02-14] MEDS: LITHIUM CARBONATE 450 MG **CR** TAB PO SCH ×2 (11:36→20:24)
--- NOTE | 2016-02-14 11:44 | IPNPDOC ---
Text Note Date of Service The patient was seen on 02/14/16 at 11:34. NOTE Subjective: Patient is a 41 year old male with a PMHx of Bipolar disorder and explosive impulse disorder who presented to the ER with altered mental status. Patient was extremely lethargic and slow at responding. Patient's brother noted that he was at a friend's place had a few drinks. Patient then became very drowsy and unsteady on his feet. His brother noted that this was the first time this happened. Patient had no other complaints. He was admitted to [facility] surg for acute metabolic encephalopathy. Patient was seen and examined at the bedside. He was awake, drowsy but oriented x3. He denies any problems other than sleepiness. Objective: Vitals (see below) General: Sitting up in bed, awake, drowsy, oriented x3 HEENT: NC, AT CVS: RRR, +S1S2 Lungs: Fair air entry b/l, -w/r/r Abdomen: Soft, ND, NT, +BSx4 Extremities: +PPx4, - edema, - calf tenderness Assessment and plan: 1. Acute metabolic encephalopathy - possibly 2/2 medications / drug use - patient appears very drowsy, however remains oriented - denies the use of drugs - CT scan negative for acute intracranial pathology - UDS positive for amphetamines - Patient intially had a mild elevation in his lithium level, but f/u was sup- therapeutic, lithium has been restarted - will check B12, RPR, Thyroid function - will continue to monitor for now - will keep NPO until more awake 2. Bipolar disorder - c/w gabapentin, lithium, mirtazapine and seroquel 3. Explosive impulsive disorder 4. DVT prophylaxis - c/w lovenox VS,Fishbone, I+O VS, Fishbone, I+O Laboratory Tests 02/13/16 18:09 Red Blood Count 4.68, Mean Corpuscular Volume 99.1 H, Mean Corpuscular Hemoglobin 32.1, Mean Corpuscular Hemoglobin Concent 32.4, Red Cell Distribution Width 13.4, Neutrophils (%) (Auto) 54.6, Lymphocytes (%) (Auto) 29.3, Monocytes (%) (Auto) 8.0 H, Eosinophils (%) (Auto) 4.2 H, Basophils (%) ( Auto) 1.3 H, Neutrophils # (Auto) 4.8, Lymphocytes # (Auto) 2.8, Monocytes # ( Auto) 0.7, Eosinophils # (Auto) 0.4, Basophils # (Auto) 0.1 02/14/16 05:01 Red Blood Count 4.56, Mean Corpuscular Volume 101.0 H, Mean Corpuscular Hemoglobin 31.9, Mean Corpuscular Hemoglobin Concent 31.6 L, Red Cell Distribution Width 13.2, Calcium Level 8.7 Vital Signs Date Time Temp Pulse Resp B/P Pulse Ox O2 Delivery O2 Flow Rate FiO2 02/14/16 06:00 97.0 68 17 104/68 98 Room Air I&O- Last 24 Hours up to 6 AM 02/14/16 06:00 Intake Total 240 ml Output Total 0 ml Balance 240 ml AUDRA COREA MD Feb 14, 2016 11:44
[2016-02-14 12:02] LABS: RETIC HEMOGLOBIN CONTENT CHr 32.8 PG (24-36)
[2016-02-14 12:52] LABS: FOLATE 15.8 NG/ML (>5.4); VITAMIN B12 LEVEL 306 PG/ML (247-911)
[2016-02-14] MEDS: NS 1,000 ML IV SCH ×2 (13:15→22:43)
[2016-02-14 14:00] VITALS: BP 97/52
[2016-02-14 18:49] VITALS: BP 98/50
--- NOTE | 2016-02-14 19:49 | ECGEPIP ---
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
[2016-02-14] MEDS: MIRTAZAPINE 15 MG TAB PO SCH (20:24)
[2016-02-14 22:00] VITALS: BP 100/57
[2016-02-15 05:30] VITALS: BP 84/49
[2016-02-15 05:31] VITALS: BP 80/42
[2016-02-15] MEDS: NS 1,000 ML IV SCH ×2 (05:48→13:11)
[2016-02-15 06:26] VITALS: BP 96/60
[2016-02-15 06:36] LABS: MEAN CORPUSCULAR HEMOGLOBIN 32.5 pg (27.0-33.0); MEAN CORPUSCULAR HGB CONC 32.6 g/dl (32.0-36.5); MEAN CORPUSCULAR VOLUME 99.6 fl (80.0-96.0); RED CELL DISTRIBUTION WIDTH 12.5 % (11.5-14.5); WHITE BLOOD COUNT 8.4 K/mm3 (4.0-10.0)
[2016-02-15 06:55] LABS: ANION GAP 9 MEQ/L (8-16); BLOOD UREA NITROGEN 9 MG/DL (7-18); CALCIUM LEVEL 8.1 MG/DL (8.5-10.1); CARBON DIOXIDE LEVEL 25 MEQ/L (21-32); CHLORIDE LEVEL 111 MEQ/L (98-107); GLOMERULAR FILTRATION RATE > 60.0 (>60); GLUCOSE, FASTING 117 MG/DL (70-105); POTASSIUM SERUM 3.7 MEQ/L (3.5-5.1); SODIUM LEVEL 145 MEQ/L (136-145)
[2016-02-15] MEDS: ENOXAPARIN 40 MG/0.4 ML SYRINGE (J1650) SC SCH (09:28)
[2016-02-15] MEDS: LITHIUM CARBONATE 450 MG **CR** TAB PO SCH (09:28)
[2016-02-15] MEDS: GABAPENTIN 300 MG CAP PO SCH (09:28)
[2016-02-15] MEDS ORDERED: GABA-279 PO (11:25)
--- NOTE | 2016-02-15 15:17 | DSES ---
DATE OF ADMISSION: 02/13/2016 DATE OF DISCHARGE: 02/15/2016 PRIMARY CARE PROVIDER: Dr. Yuri Hammond REFERRING PHYSICIAN: None. CONSULTING PHYSICIAN: None. CONDITION UPON DISCHARGE: Stable. FINAL DIAGNOSIS: Altered mental status. PROCEDURES: None. HISTORY OF PRESENT ILLNESS: The patient is a 41-year-old male with a past medical history of bipolar disorder and explosive impulse disorder who presented to the emergency room with altered mental status. The patient was extremely lethargic and slow at responding. The patient's brother noted that he was at a friend's place, had a few drinks, and the patient then became very drowsy and unsteady on his feet. His brother noted that this is the first time this has happened. The patient had no other complaints. He was admitted to the medical/surgical floor for acute metabolic encephalopathy. HOSPITAL COURSE: 1. Acute metabolic encephalopathy, likely secondary to medications and drug abuse. The patient appeared initially very drowse. However, throughout the hospital course, he has become more awake. However, he is still a little sleepy. He denies the use of any drugs. However, urine drug screen was positive for amphetamines. CT scan of the head was negative for any acute intracranial pathology. The patient initially had a mild elevation in his lithium level but followup showed that it is subtherapeutic and lithium was reinstituted. The patient had B12 levels checked are normal, thyroid function which was within normal limits, and rapid plasma reagin (RPR) which was negative. The patient was ambulated by nursing staff and was able to walk around the entire fourth floor without any event. The patient was initially nothing by mouth and was advanced as tolerated. 2. Bipolar disorder. Continue with gabapentin, lithium, and mirtazapine as well as Seroquel. 3. Explosive impulsive disorder. 4. Deep vein thrombosis (DVT) prophylaxis. He was on Lovenox. DISCHARGE MEDICATIONS: The patient was discharged home with: - lithium 450 mg by mouth twice a day - mirtazapine 30 mg by mouth daily MEDICATIONS WHICH WERE STOPPED: Include: - gabapentin 300 mg by mouth three times a day - quetiapine 300 mg by mouth at bedtime NEW MEDICATIONS WHICH WERE INSTITUTED: Gabapentin 100 mg by mouth three times a day. DISCHARGE INSTRUCTIONS: The patient was advised to followup with his primary care provider and psychiatry within the next seven days. He was advised to confirm/schedule appointment. He was advised to remain compliant with treatment plan and medications and return to the emergency room if he experiences any problems. CODE STATUS: Full code. TIME SPENT ON DISCHARGE: 35 minutes.
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
--- NOTE | 2016-02-15 23:17 | EDDOCDS ---
Physician Documentation [facility] Name: Thomas Berkowitz Age: 41 yrs Sex: Male : 1975 Arrival Date: 02/13/2016 Time: 17:40 Bed 10 Private MD: Marlin Hammond Disposition: 02/12 20:27 Critical Care: Critical care not applicable. pc Disposition: 02/13/16 20:32 Hospitalization ordered by Lissette Eden for Inpatient Admission. Preliminary diagnosis are Altered mental status, unspecified, Poisoning by other psychotropic drugs, accidental (unintentional) - lithium toxicity, Other stimulant abuse - amphetamines. - Bed requested for 4 [place]. - Status is Inpatient Admission. mgs - Condition is Stable. - Problem is new. - Symptoms are unchanged. HPI: 19:42 This 41 yrs old Male presents to ER via Walkin/Carried/Asstd with complaints pc of Altered Mental Status. 19:42 The history is obtained from the patient's family/friend. A reliable history and/or pc examination was not able to be obtained, due to AMS. He woke up from a nap and has been extremely drowsy, confused, slurring his speech. He is unable to give a history as he falls asleep without stimulation and when awakened, is aggressive and verbally abusive. His family deny any drug abuse or overdose but he has a history of the same. He has not had any new medications except ABX for a dental abscess and a short course of tramadol 4 weeks ago. He has not been ill, has not had any fevers, cough, GI or symptoms. At their worst, the symptoms were moderate. In the emergency department, the symptoms are unchanged. The patient has been recently seen at the [facility], last month. Historical: - Allergies: no known allergies; - Home Meds: 1. gabapentin 300 mg oral cap 3 times per day 2. lithium carbonate 450 mg Oral TbER 1 tab 2 times per day 3. mirtazapine 30 mg Oral tab 1 tab once daily 4. Seroquel Oral nightly - PMHx: Bipolar disorder; explosive impulse disorder; - PSHx: oral surgery; left foot surgery; - The history from nurses notes was reviewed: and I agree with what is documented. - Social history: Smoking status: Patient uses tobacco products, heavy tobacco smoker. No barriers to communication noted, The patient speaks fluent Iraqi, Speaks appropriately for age. - Family history: Not pertinent. - : The pt / caregiver states he / she is not on anticoagulants. Home medication list is obtained from the patient, [employer] import data. - Hospitalizations: : No recent hospitalization is reported. - Exposure Risk Screening:: None identified. - Immunization history:: All immunizations up-to-date. - Social history:: the patient is a non-smoker, the patient does not drink alcohol. ROS: 19:42 All systems are negative except as listed. pc Exam: 19:42 General Appearance: the patient is in mild distress, lethargic. pc 19:42 EENT: normal eye inspection, ears, nose and throat normal, pharynx normal, mucous membranes moist 19:42 Neck: The exam reveals no acute abnormalities. ROM is normal and painless. No nuchal rigidity is noted.. 19:42 Respiratory: no respiratory distress, normal breath sounds. 19:42 CVS: regular pulse rate, regular rhythm, normal S1 and S2, no murmurs, strong peripheral pulses. 19:42 Abdomen: soft, non-tender, no organomegaly, normal bowel sounds. 19:42 Back: normal inspection. 19:42 Skin: skin color is normal, warm, dry. 19:42 Extremities: The extremities have a grossly normal appearance, are non-tender, without acute ROM abnormalities. 19:42 Neuro: cranial nerves normal as tested, no motor deficits, no sensory deficits, normal gait, unable to test orientation because the patient is uncooperative. 19:42 Psych: aggressive, vioilent. Vital Signs: 17:42 BP 117 / 73; Pulse 104; Resp 18; Temp 97.9; Pulse Ox 98% ; Weight 68.04 kg / 150 lbs; cmb Height 5 ft. 6 in. (167.64 cm); Pain 0/10; 18:11 BP 119 / 66 (auto/); ead 18:13 Pulse 94 MON; Pulse Ox 97% ; ead 18:26 BP 117 / 64 (auto/); ead 18:26 Pulse 90 MON; Resp 16; Pulse Ox 99% on R/A; ead 18:56 BP 102 / 57 (auto/); mgs 18:56 Pulse 88 MON; Pulse Ox 99% ; mgs 19:11 BP 102 / 64 (auto/); mgs 19:11 Pulse 82 MON; Pulse Ox 97% ; mgs 19:26 BP 108 / 66 (auto/); mgs 19:26 Pulse 78 MON; Pulse Ox 96% ; mgs 19:41 BP 115 / 80 (auto/); mgs 19:41 Pulse 82 MON; mgs 19:56 BP 110 / 66 (auto/); mgs 19:56 Pulse 80 MON; Pulse Ox 99% ; mgs 20:11 BP 104 / 62 (auto/); mgs 20:11 Pulse 80 MON; Pulse Ox 97% ; mgs 20:26 BP 106 / 63 (auto/); mgs 20:26 Pulse 86 MON; Pulse Ox 97% ; mgs 20:41 BP 106 / 65 (auto/); mgs 20:41 Pulse 84 MON; Pulse Ox 98% ; mgs 20:56 BP 107 / 62 (auto/); mgs 20:56 Pulse 84 MON; Pulse Ox 100% ; mgs 21:11 BP 102 / 63 (auto/); mgs 21:11 Pulse 82 MON; Pulse Ox 100% ; mgs 21:25 BP 102 / 62 (auto/); mgs 21:25 Pulse 84 MON; Pulse Ox 100% ; mgs 21:26 BP 102 / 62; Pulse 79; Resp 18 S; Temp 97.2(O); Pulse Ox 100% on R/A; Pain 0/10; jp4 21:26 BP 105 / 61 (auto/); mgs 21:26 Pulse 78 MON; Pulse Ox 100% ; mgs 21:41 BP 100 / 58 (auto/); mgs 21:41 Pulse 82 MON; Pulse Ox 100% ; mgs 21:56 BP 102 / 60 (auto/); mgs 21:56 Pulse 80 MON; Pulse Ox 100% ; mgs 17:42 Body Mass Index 24.21 (68.04 kg, 167.64 cm) cmb MDM: 19:05 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 pc 19:05 Accucheck ordered. pc 19:05 IV Saline Lock ordered. pc 19:05 Rhythm Strip to chart ordered. pc 19:06 Acetaminophen Level Ordered. EDMS 19:06 CBC with Diff Ordered. EDMS 19:06 Cardiac Injury Profile Ordered. EDMS 19:06 Drug Eval Toxicology ED Only Ordered. EDMS 19:06 Liver Profile Ordered. EDMS 19:06 MED Profile Ordered. EDMS 19:06 Salicylate Level Ordered. EDMS 19:06 Thyroid Stimulating Hormone Ordered. EDMS 19:06 Troponin Ordered. EDMS 19:06 [place] Level Ordered. EDMS 19:07 CT Head Without Contrast Ordered. EDMS 19:07 ECG WITH READING ER PHYS+CARDIAG ordered. EDMS 19:17 Test interpretation: EKG. pc 19:22 Fingerstick Blood Sugar Ordered. EDMS 19:28 Straight cath ordered. davin 19:41 Acetaminophen Level Reviewed. pc 19:41 CBC with Diff Reviewed. pc 19:41 Cardiac Injury Profile Reviewed. pc 19:41 Liver Profile Reviewed. pc 19:41 MED Profile Reviewed. pc 19:41 Salicylate Level Reviewed. pc 19:41 [place] Level Reviewed. pc 19:41 Thyroid Stimulating Hormone Reviewed. pc 19:41 Troponin Reviewed. pc 19:41 Fingerstick Blood Sugar Reviewed. pc 19:42 Differential Diagnosis: AMS r/o drug ingestion/ICH/lithium toxicity/overdose. Plan: pc labs, EKG, CT. 20:21 Drug Eval Toxicology ED Only Reviewed. pc 20:27 Data reviewed: old medical records, vital signs, nurses notes, EKG(s), lab test pc results, all radiology studies and available results. Test interpretation: LAB - all labs as ordered have been reviewed, interpreted and considered in the overall management of the clinical presentation; interpreted by Radiologist and personally reviewed, Head CT; no acute disease. The patient has been re-examined and re-evaluated. There is no appreciated change of the patient's symptoms at this time. Physician consultation: Dr. Lissette Eden was contacted at 20:28, regarding admission, and will see patient in ED. Disposition: The historical points, examination findings, and any diagnostic results supporting the provided diagnosis, were discussed with the patient or legal guardian. The need for further work-up and/or treatment in the hospital was explained. 20:28 BED REQUEST+ADM ordered. EDMS 21:03 Financial registration complete. [email or web address] 21:03 Admission / Observation Status ordered. EDMS 21:03 REGULAR DIET ordered. EDMS 21:05 COMPLETE BLOOD COUNT Ordered. EDMS 21:05 BASIC METABOLIC PROFILE Ordered. EDMS 21:05 LITHIUM LEVEL Ordered. EDMS 22:38 [facility] Payment Agreement was scanned into [employer] and attached to record. [email or web address] 11:17 ECG/EKG was scanned into [employer] and attached to record. EC/03 19:17 Rate is 85 beats/min. Rhythm is regular, Normal Sinus Rhythm. QRS [place] is Normal. CO pc interval is normal. QRS interval is normal. QT interval is normal. No Q waves. T waves are Normal. ST Segment is elevated in leads I, II, V2, V3, V4, V5, V6, <1mm. Clinical impression: Normal Sinus Rhythm and ST-T changes consistent with early repolarization. No change from previous ECG on April 18, 2015. Point of Care Testing: Blood Glucose: 19:15 Blood Glucose: 76 mg/dL; mgs Ranges: Signatures: Dispatcher [employer] EDMS Simon Greene MD MD pc Johnson, Bruce, RN Lucia Cotton, RN Shruthi Soliz, Reg Reg gb Damon, Josse, Lift Manager Unit ml3 Katalina Smith RN RN ead Sheldon, Matthew, RN RN mgs Sorenson, Kimberly, Reg Reg [email or web address] The chart was reviewed and I authenticate all verbal orders and agree with the evaluation and treatment provided.Corrections: (The following items were deleted from the chart) 19:21 19:17 Rate is 85 beats/min. Rhythm is regular, Normal Sinus Rhythm. QRS [place] is Normal. pc CO interval is normal. QRS interval is normal. QT interval is normal. No Q waves. T waves are Normal. No ST changes noted. Clinical impression: Normal Sinus Rhythm. pc Attachments: 22:38 [facility] Payment Agreement ks02/13 11:17 ECG/EKG Chart [facility]
== END 2016-02-15 14:18 | disposition home or self-care (01) ==
LOC: M ED 17:40 → M ED INP 20:55 → M MSPAV 22:23
PROVIDERS: ADMIT Internal Medicine; ATTEND Internal Medicine
DX: G92 Toxic encephalopathy (principal); T56.91XA Toxic effect of unspecified metal, accidental (unintentional), initial encounter; F31.9 Bipolar disorder, unspecified; F63.81 Intermittent explosive disorder; Z79.899 Other long term (current) drug therapy; F17.210 Nicotine dependence, cigarettes, uncomplicated
CPT/HCPCS: 36415; 70450; 80048; 80076; 80178; 80306; 82550; 82553; 82607; 82746; 84439; 84443; 84480; 85025; 85027; 85046; 86780; 93005; 93041; 96372; 99285; G0480; J1650

== ENCOUNTER 2016-05-01 20:51 | Emergency (ER) | payer OTHER, SELFPAY ==
[~2016-05-01] VITALS: Ht 167.6 cm; Wt 63.5 kg
[~2016-05-01 20:51] MED LIST changes: -CAPS25CR TOP; +GABA-279 PO; +MIRT30TA3 PO; +NEUR300C PO; +SERO1TAB2 PO; +TRIX0.022 TOP
[2016-05-01 20:52] VITALS: BP 147/82
[2016-05-01] MEDS ORDERED: PERM5CR TOP (22:59)
== END 2016-05-01 23:07 | disposition home or self-care (01) ==
LOC: M ED 22:01
DX: B85.0 Pediculosis due to Pediculus humanus capitis (principal); F99 Mental disorder, not otherwise specified; F17.210 Nicotine dependence, cigarettes, uncomplicated; Z79.899 Other long term (current) drug therapy

== ENCOUNTER 2016-05-06 10:24 | Emergency (ER) | payer OTHER, SELFPAY ==
[~2016-05-06] VITALS: Ht 165.1 cm; Wt 63.5 kg
[~2016-05-06 10:24] MED LIST changes: +PERM5CR TOP
[2016-05-06 12:42] LABS: MEAN CORPUSCULAR HEMOGLOBIN 31.8 pg (27.0-33.0); MEAN CORPUSCULAR HGB CONC 32.6 g/dl (32.0-36.5); MEAN CORPUSCULAR VOLUME 97.5 fl (80.0-96.0); RED CELL DISTRIBUTION WIDTH 12.1 % (11.5-14.5); WHITE BLOOD COUNT 7.2 K/mm3 (4.0-10.0)
[2016-05-06 12:46] LABS: ALBUMIN 3.4 GM/DL (3.2-5.2); ALBUMIN/GLOBULIN RATIO 1.26 (1.00-1.93); ALKALINE PHOSPHATASE 77 U/L (45-117); ALT/SGPT 29 U/L (12-78); ANION GAP 8 MEQ/L (8-16); AST/SGOT 21 U/L (15-37); BILIRUBIN,DIRECT < 0.1 MG/DL (0.0-0.2); BILIRUBIN,TOTAL 0.1 MG/DL (0.2-1.0); BLOOD UREA NITROGEN 11 MG/DL (7-18); CALCIUM LEVEL 8.2 MG/DL (8.5-10.1); CARBON DIOXIDE LEVEL 28 MEQ/L (21-32); CHLORIDE LEVEL 109 MEQ/L (98-107); CREATININE FOR GFR 0.76 MG/DL (0.70-1.30); GLOMERULAR FILTRATION RATE > 60.0 (>60); GLUCOSE, FASTING 78 MG/DL (70-105); POTASSIUM SERUM 3.5 MEQ/L (3.5-5.1); SODIUM LEVEL 145 MEQ/L (136-145); TOTAL PROTEIN 6.1 GM/DL (6.4-8.2)
[2016-05-06 14:41] VITALS: BP 126/75
[2016-05-06 15:56] LABS: METHADONE URINE NEGATIVE (NEGATIVE)
== END 2016-05-06 19:48 | disposition home or self-care (01) ==
LOC: M ED 12:05
DX: F19.10 Other psychoactive substance abuse, uncomplicated (principal); F22 Delusional disorders
CPT/HCPCS: 80048; 80076; 80306; 84443; 85027; 99284; G0480

== ENCOUNTER 2016-07-05 11:02 | Emergency (ER) | payer OTHER ==
[~2016-07-05] VITALS: Ht 167.6 cm; Wt 63.5 kg
[~2016-07-05 11:02] MED LIST changes: -KEFL500C7 PO; -TRAM50TA2 PO
[2016-07-05 11:03] VITALS: BP 119/83
[2016-07-05] MEDS ORDERED: traMADol 50 MG TAB PO ONE (12:00)
[2016-07-05] MEDS ORDERED: TRAM50TA2 PO (12:00)
== END 2016-07-05 12:19 | disposition home or self-care (01) ==
LOC: M ED 11:55
DX: S16.1XXA Strain of muscle, fascia and tendon at neck level, initial encounter (principal); X50.0XXA Overexertion from strenuous movement or load, initial encounter; Y92.89 Other specified places as the place of occurrence of the external cause; Y93.89 Activity, other specified; Y99.8 Other external cause status; G89.29 Other chronic pain; F31.9 Bipolar disorder, unspecified; F17.210 Nicotine dependence, cigarettes, uncomplicated

== ENCOUNTER → 2016-07-05 | Outpatient (CLI) | payer OTHER ==
[~2016-07-05] MED LIST changes: +KEFL500C7 PO; +TRAM50TA2 PO
== END ==
LOC: M RAD 09:49
PROVIDERS: ATTEND Family Medicine Addiction Medicine
DX: M54.5 Low back pain (principal)

== ENCOUNTER 2016-07-16 21:34 | Emergency (ER) | payer OTHER ==
[~2016-07-16] VITALS: Ht 167.6 cm; Wt 65.8 kg
[~2016-07-16 21:34] MED LIST changes: +TRAM50TA2 PO
[2016-07-16 21:35] VITALS: BP 121/64
[2016-07-16] MEDS ORDERED: CEPHALEXIN 500 MG CAP PO ONE (23:00)
[2016-07-16] MEDS ORDERED: KEFL500C7 PO (23:00)
== END 2016-07-16 23:08 | disposition home or self-care (01) ==
LOC: M ED 22:36
DX: S40.851A Superficial foreign body of right upper arm, initial encounter (principal); X58.XXXA Exposure to other specified factors, initial encounter; Y92.89 Other specified places as the place of occurrence of the external cause; Y93.89 Activity, other specified; Y99.8 Other external cause status; M54.2 Cervicalgia; F31.9 Bipolar disorder, unspecified

== ENCOUNTER → 2016-07-17 | Outpatient (CLI) | payer OTHER ==
[~2016-07-17] MED LIST changes: +KEFL500C7 PO
--- NOTE | 2016-07-18 01:58 | REP ---
Clinical: Cervicalgia Technique: AP, lateral, open mouth views. Findings: Alignment is maintained. Vertebral bodies are intact. No acute fracture / compression injury or subluxation. Minimal disc space narrowing at the C5-6 level with subtle early anterior spurring noted. Remainder examination is normal for age. Impression: Minimal early degenerative changes at the C5-6 level suggested. Signed by Cody Sherwood MD 07/18/2016 01:49 A
== END ==
LOC: M RAD 22:12
PROVIDERS: ATTEND Family Medicine Addiction Medicine
DX: M50.30 Other cervical disc degeneration, unspecified cervical region (principal)

== ENCOUNTER 2016-07-22 17:43 | Emergency (ER) | payer OTHER ==
[~2016-07-22] VITALS: Ht 165.1 cm; Wt 71.3 kg
[2016-07-22 17:45] VITALS: BP 105/67
[2016-07-22] MEDS ORDERED: KETOROLAC 60 MG/2 ML VIAL (J1885) IM ONE (19:45)
== END 2016-07-22 20:12 | disposition home or self-care (01) ==
LOC: M ED 19:55
DX: M54.12 Radiculopathy, cervical region (principal); F19.10 Other psychoactive substance abuse, uncomplicated; F31.9 Bipolar disorder, unspecified; R51 Headache; F17.200 Nicotine dependence, unspecified, uncomplicated

== ENCOUNTER 2016-07-30 03:57 | Emergency (ER) | payer OTHER ==
[~2016-07-30] VITALS: Ht 165.1 cm; Wt 63.0 kg
[2016-07-30 04:01] VITALS: BP 121/67
[2016-07-30] MEDS ORDERED: LITH45TASA PO (04:09)
[2016-07-30] MEDS ORDERED: CIPRODEX OTIC SUSP 7.5ML AD ONE (05:30)
[2016-07-30] MEDS ORDERED: CIPRODEX AD (05:31)
== END 2016-07-30 05:49 | disposition home or self-care (01) ==
LOC: M ED 04:49
DX: H60.501 Unspecified acute noninfective otitis externa, right ear (principal)

== ENCOUNTER 2016-08-02 21:46 | Emergency (ER) | payer OTHER ==
[~2016-08-02] VITALS: Ht 165.1 cm; Wt 72.5 kg
[~2016-08-02 21:46] MED LIST changes: +CIPRODEX AD
[2016-08-02 21:47] VITALS: BP 137/72
[2016-08-02] MEDS ORDERED: INDO25CA PO (22:50)
== END 2016-08-02 23:10 | disposition home or self-care (01) ==
LOC: M ED 22:22
DX: G89.29 Other chronic pain (principal); M54.2 Cervicalgia

== ENCOUNTER 2016-08-07 11:59 | Emergency (ER) | payer OTHER ==
[~2016-08-07] VITALS: Ht 167.6 cm; Wt 66.5 kg
[~2016-08-07 11:59] MED LIST changes: +INDO25CA PO
[2016-08-07 12:02] VITALS: BP 128/76
--- NOTE | 2016-08-07 13:23 | ED PDOC ---
Post-Departure Follow-Up PT PRESENTS TODAY STATING HE HAS A BUG PROBLEM AT HOME AND THAT NO ONE WILL HELP HIM WITH THIS. STATES HE HAS NO PROBLEMS OUTSIDE OF HIS HOME, "BUT SOON I WALK IN THE DOOR, THEY ARE ON ME AGAIN." STATES HAS BEEN WAKING UP AT NIGHT TIME AND HAS BUGS IN HIS MOUTH THAT HE IS SPITTING OUT. PT HAS EMESIS BAG IN EXAM ROOM WITH SALIVA INSIDE. STATES, "I KNOW I HAVE MORE BUGS IN MY MOUTH RIGHT NOW. I THINK THEY ARE SUPER LICE BECAUSE NORMAL TREATMENTS DON'T WORK, I HAVE TO USE THAT NIX STUFF." STATES HE IS SUPPOSED TO BE GOING TO [facility] FOR REHAB AND THEY WILL NOT EXCEPT HIM WITH A COMPLAINT OF BUGS SO HE WAS HOPING, " A DOCTOR COULD DIAGNOSE ME WITH THESE BUGS SO WE KNOW WHAT WE ARE DEALING WITH. " NO BUGS/LICE/INSECT BITES FOUND ON EXAM. PT'S MOUTH EMPTY WITHOUT ANY SIGNS OF BUGS. ESTELLE MERA PA-C Aug 07, 2016 13:23
== END 2016-08-07 13:25 | disposition home or self-care (01) ==
LOC: M ED 11:59
DX: F22 Delusional disorders (principal)

== ENCOUNTER 2016-08-12 12:23 | Emergency (ER) | payer OTHER ==
[~2016-08-12] VITALS: Ht 165.1 cm; Wt 63.6 kg
[~2016-08-12 12:23] MED LIST changes: -HYDR-4274 PO; +HYDR50TA70 PO; +KEFL500C17 PO; -KEFL500C7 PO; -RISP2TAB30 PO; +RISP2TAB32 PO; +TRAZ50TA11 PO; -TRAZ50TA4 PO
[2016-08-12 13:27] LABS: MEAN CORPUSCULAR HEMOGLOBIN 33.3 pg (27.0-33.0); MEAN CORPUSCULAR HGB CONC 33.7 g/dl (32.0-36.5); MEAN CORPUSCULAR VOLUME 98.8 fl (80.0-96.0); RED CELL DISTRIBUTION WIDTH 12.2 % (11.5-14.5); WHITE BLOOD COUNT 6.6 K/mm3 (4.0-10.0)
[2016-08-12 14:07] LABS: METHADONE URINE NEGATIVE (NEGATIVE)
[2016-08-12 14:15] LABS: ALBUMIN 3.9 GM/DL (3.2-5.2); ALBUMIN/GLOBULIN RATIO 1.26 (1.00-1.93); ALKALINE PHOSPHATASE 69 U/L (45-117); ALT/SGPT 23 U/L (12-78); ANION GAP 6 MEQ/L (8-16); AST/SGOT 17 U/L (15-37); BILIRUBIN,DIRECT < 0.1 MG/DL (0.0-0.2); BILIRUBIN,TOTAL 0.6 MG/DL (0.2-1.0); BLOOD UREA NITROGEN 9 MG/DL (7-18); CARBON DIOXIDE LEVEL 27 MEQ/L (21-32); CHLORIDE LEVEL 105 MEQ/L (98-107); CREATININE FOR GFR 0.95 MG/DL (0.70-1.30); GLOMERULAR FILTRATION RATE > 60.0 (>60); GLUCOSE, FASTING 90 MG/DL (70-105); POTASSIUM SERUM 4.2 MEQ/L (3.5-5.1); SODIUM LEVEL 138 MEQ/L (136-145)
[2016-08-12 14:30] LABS: LITHIUM LEVEL 0.41 MEQ/L (0.60-1.20)
[2016-08-12 16:17] VITALS: BP 137/76
== END 2016-08-12 16:36 | disposition home or self-care (01) ==
LOC: M ED 12:23
DX: S80.861A Insect bite (nonvenomous), right lower leg, initial encounter (principal); F10.10 Alcohol abuse, uncomplicated; F12.10 Cannabis abuse, uncomplicated; F31.9 Bipolar disorder, unspecified; W57.XXXA Bitten or stung by nonvenomous insect and other nonvenomous arthropods, initial encounter; Y92.099 Unspecified place in other non-institutional residence as the place of occurrence of the external cause; Y93.89 Activity, other specified; Y99.9 Unspecified external cause status

== ENCOUNTER 2016-09-16 17:44 | Inpatient (IN) | payer OTHER ==
[~2016-09-16] VITALS: Ht 165.1 cm; Wt 80.2 kg
[2016-09-16] MEDS ORDERED: LORazepam 0.5 MG TAB PO ONE (19:00)
[2016-09-16 19:20] LABS: MEAN CORPUSCULAR HEMOGLOBIN 32.6 pg (27.0-33.0); MEAN CORPUSCULAR HGB CONC 33.7 g/dl (32.0-36.5); MEAN CORPUSCULAR VOLUME 96.7 fl (80.0-96.0); RED CELL DISTRIBUTION WIDTH 12.9 % (11.5-14.5); WHITE BLOOD COUNT 9.3 K/mm3 (4.0-10.0)
[2016-09-16 19:43] LABS: METHADONE URINE NEGATIVE (NEGATIVE)
[2016-09-16 19:54] LABS: ALBUMIN 3.8 GM/DL (3.2-5.2); ALBUMIN/GLOBULIN RATIO 1.41 (1.00-1.93); ALKALINE PHOSPHATASE 81 U/L (45-117); ALT/SGPT 25 U/L (12-78); ANION GAP 9 MEQ/L (8-16); AST/SGOT 13 U/L (15-37); BILIRUBIN,DIRECT 0.1 MG/DL (0.0-0.2); BILIRUBIN,TOTAL 0.5 MG/DL (0.2-1.0); BLOOD UREA NITROGEN 8 MG/DL (7-18); CALCIUM LEVEL 9.1 MG/DL (8.5-10.1); CARBON DIOXIDE LEVEL 26 MEQ/L (21-32); CHLORIDE LEVEL 105 MEQ/L (98-107); CREATININE FOR GFR 1.03 MG/DL (0.70-1.30); GLOMERULAR FILTRATION RATE > 60.0 (>60); GLUCOSE, FASTING 124 MG/DL (70-105); POTASSIUM SERUM 3.7 MEQ/L (3.5-5.1); SODIUM LEVEL 140 MEQ/L (136-145); TOTAL PROTEIN 6.5 GM/DL (6.4-8.2)
[2016-09-16] MEDS ORDERED: CLON-412 PO (20:43)
[2016-09-16] MEDS ORDERED: IBUP40TA PO (20:43)
[2016-09-16] MEDS ORDERED: GABA-282 PO (20:43)
[2016-09-16] MEDS ORDERED: LITH600C PO (20:43)
[2016-09-16] MEDS ORDERED: DIPH25CA PO (20:43)
[2016-09-16] MEDS ORDERED: HYDR1CAP25 PO (20:43)
[2016-09-16] MEDS ORDERED: OLANZapine 5 MG TAB PO PRN (20:45)
[2016-09-16] MEDS ORDERED: diphenhydrAMINE 25 MG CAP PO PRN (20:45)
[2016-09-16] MEDS ORDERED: MOM 30ML SUSPENSION UDC PO PRN (20:45)
[2016-09-16] MEDS ORDERED: MAALOX 30 ML SUSP *UDC PO PRN (20:45)
[2016-09-16] MEDS ORDERED: HALOPERIDOL 5 MG TAB PO SCH (21:00)
[2016-09-16 22:38] VITALS: BP 113/61
[2016-09-17] MEDS: HALOPERIDOL 10 MG TAB PO SCH ×3 (00:26→21:46)
[2016-09-17] MEDS: LORazepam 1 MG TAB PO SCH ×4 (00:26→21:46)
[2016-09-17 06:45] VITALS: BP 113/61
[2016-09-17] MEDS: CHLORHEXIDINE GLUCONATE 0.12 % 15ML UDC (PERIDEX ORAL RINSE) SSP SCH ×3 (09:00→21:45)
[2016-09-17] MEDS: CitaloPRAM (CeleXA) 10 MG TABLET PO SCH (09:12)
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
[2016-09-17] MEDS: LITHIUM CARBONATE 600 MG CAP PO SCH ×2 (10:09→21:46)
--- NOTE | 2016-09-17 10:33 | HPEPDOC ---
Medical History and Physical Date of Admission Sep 16, 2016 at 20:41 History and Physical DATE OF ADMISSION: 04/18/15 PCP: Dr Radha Hobson ATTENDING: Dr. Chauncey Vazquez HPI: 41yoM admitted to [facility] for unspecified mood disorder, being medically examined today. Patient states he is having dental pain, the upper left front tooth is painful. He states he has not had a dental appointment recently however was previously seen by [facility] [place]. Denies any fevers, chills, weakness, fatigue, DE JESUS, CP, SOB, cough, palpitations, abdominal pain, N/V /D or changes in bowel or bladder habits. PMHx: Bipolar disorder Explosive impulse disorder Neck pain Low back pain Poor dentition Substance use Tobacco use PSHX: Left foot surgery SOCHX: Resides in: [facility] Marital Status: Single Kids: 1 Employment: unemployed Tobacco use: One to 2 pack per day ETOH: Denies Illicit Drugs: States recently using methamphetamine. History of Marijuana 3-4 x per day. Recently released from [facility] earlier this week. IV Drug Use: Denies Tattoos done unprofessionally: Denies FAMHX: Mother: Unknown Father: 60s Alive, well Siblings: One brother Alive, well Children: Alive, well Unexpected deaths due to medical reasons: None. ROS: As noted in HPI, otherwise 11pt ROS of systems reviewed and unremarkable. PE: GEN: 40yoM, appears stated age. No acute distress. Alert and oriented x 3. Disheveled appearing, avoids eye contact. HEENT: Normocephalic, atraumatic. Pupils are equal, round, and reactive to light. Extraocular movements are intact. No nystagmus appreciated. Sclera are nonicteric. Conjunctiva without injection. Nose midline. Nasal turbinates without bogginess. EACs both patent BL. TMs both visualized and mascorro with good cone of light, no bulging or erythema. No facial asymmetry. Moist mucous membranes. Dentition very poor, erythema noted around the left upper front tooth. Pharynx pink and moist. Neck supple, trachea midline. No lymphadenopathy or thyromegaly appreciated. CHEST: Regular rate and rhythm, +S1, +S2 LUNGS: Clear to auscultation bilaterally. No wheezes, rales, or rhonchi. Breathing appears symmetric and easy. Patient is speaking in full sentences. No accessory muscle use. ABD: Round, soft, non-tender, non-distended. +Bowel sounds throughout. No rebound or guarding. No costovertebral angle tenderness. EXT: Pulses 2+ bilaterally dorsalis pedis and radial. No lower extremity edema appreciated. SKIN: [place], dry, warm. Capillary refill <2sec. No rashes. NEURO: No focal deficits appreciated. EKG: Pending. A&P: 40yoM admitted to [facility] for major depressive disorder 1. Psych. Plan per Psychiatry. EKG pending 2. Nicotine dependence. Patch available. 3. Follow up with PCP on discharge. 4. Substance use. Per psychiatry. 5. Poor dentition/dental infection. Add Augmentin 875 mg by mouth twice a day 10 days. Chlorhexidine mouthwash 3 times a day. Ensure appointment with dental provider at discharge. Tylenol 650 mg every 6 hours as needed. 6. Chronic pain. Patient with no complaint of pain currently. Continue Tylenol as needed. Continue gabapentin at outpatient dosing 300 mg by mouth 3 times a day. 7. Staff member Stoney present throughout exam. Vital Signs Vital Signs Date Time Temp Pulse Resp B/P (MAP) Pulse Ox O2 Delivery O2 Flow Rate FiO2 09/17/16 06:45 97.8 74 18 113/61 (78) 94 Room Air Laboratory Data Labs 24H Laboratory Tests 2 09/16/16 19:07: Urine Amphetamines Screen POSITIVEH, Urine Benzodiazepines Screen NEGATIVE, Urine Opiates Screen NEGATIVE, Urine Methadone Screen NEGATIVE, Urine Barbiturates Screen NEGATIVE, Urine Phencyclidine Screen NEGATIVE, Urine Cocaine Metabolite Screen NEGATIVE, Urine Cannabinoids Screen NEGATIVE 09/16/16 19:09: Anion Gap 9, Glomerular Filtration Rate > 60.0, Calcium Level 9.1, Aspartate Amino Transf (AST/SGOT) 13L, Alanine Aminotransferase (ALT/SGPT) 25, Alkaline Phosphatase 81, Total Bilirubin 0.5, Direct Bilirubin 0.1, Total Protein 6.5, Albumin 3.8, Albumin/Globulin Ratio 1.41, Thyroid Stimulating Hormone (TSH) 0.672, Salicylates Level 3.1L, Acetaminophen Level < 2.0L, [place] Level 0.69, Ethyl Alcohol Level < 0.003 CBC/BMP Laboratory Tests 09/16/16 19:09 Red Blood Count 4.65, Mean Corpuscular Volume 96.7 H, Mean Corpuscular Hemoglobin 32.6, Mean Corpuscular Hemoglobin Concent 33.7, Red Cell Distribution Width 12.9 Home Medications Scheduled Gabapentin (Gabapentin) 300 Mg Cap, 300 MG PO TID [place] Carbonate ([place] Carbonate) 600 Mg Cap, 600 MG PO BID Scheduled PRN Clonidine Hydrochloride (Clonidine HCl) 0.1 Mg Tab, 0.1 MG PO TID PRN for OPIATE WITHDRAWALS Diphenhydramine HCl (Diphenhydramine HCl) 25 Mg Cap, 25 MG PO QHS PRN for SLEEP Hydroxyzine Pamoate (Hydroxyzine Pamoate) 25 Mg Cap, 25 MG PO QID PRN for ANXIETY Ibuprofen (Ibuprofen) 400 Mg Tab, 400 MG PO QID PRN for PAIN Allergies Coded Allergies: No Known Drug Allergy (Unverified Allergy, Unknown, 08/12/16) Eduarda Cobos Sep 17, 2016 10:33
[2016-09-17] MEDS: AUGMENTIN 875 MG TAB PO SCH ×2 (10:39→21:45)
[2016-09-17] MEDS: GABAPENTIN 300 MG CAP PO SCH ×3 (10:39→21:45)
[2016-09-17 18:08] VITALS: BP 102/68
[2016-09-18 06:45] VITALS: BP 119/57
[2016-09-18] MEDS ORDERED: HALOPERIDOL 5 MG TAB PO SCH (09:00)
[2016-09-18] MEDS: GABAPENTIN 300 MG CAP PO SCH ×3 (09:22→21:59)
[2016-09-18] MEDS: AUGMENTIN 875 MG TAB PO SCH ×2 (09:22→21:58)
[2016-09-18] MEDS: LITHIUM CARBONATE 600 MG CAP PO SCH ×2 (09:22→21:59)
[2016-09-18] MEDS: CitaloPRAM (CeleXA) 10 MG TABLET PO SCH (09:22)
[2016-09-18] MEDS: CHLORHEXIDINE GLUCONATE 0.12 % 15ML UDC (PERIDEX ORAL RINSE) SSP SCH ×3 (09:22→21:59)
[2016-09-18] MEDS: LORazepam 1 MG TAB PO SCH ×3 (09:22→21:58)
[2016-09-18 18:02] VITALS: BP 100/60
--- NOTE | 2016-09-18 22:39 | ECGEPIP ---
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
[2016-09-19 07:06] VITALS: BP 112/71
[2016-09-19] MEDS: AUGMENTIN 875 MG TAB PO SCH ×2 (08:58→20:53)
[2016-09-19] MEDS: LORazepam 1 MG TAB PO SCH ×2 (08:58→20:53)
[2016-09-19] MEDS: CHLORHEXIDINE GLUCONATE 0.12 % 15ML UDC (PERIDEX ORAL RINSE) SSP SCH ×3 (08:58→20:54)
[2016-09-19] MEDS: LITHIUM CARBONATE 600 MG CAP PO SCH ×2 (08:58→20:54)
[2016-09-19] MEDS: GABAPENTIN 300 MG CAP PO SCH ×3 (08:58→20:54)
[2016-09-19] MEDS: CitaloPRAM (CeleXA) 10 MG TABLET PO SCH (08:58)
--- NOTE | 2016-09-19 14:55 | MHIPNPDOC ---
[facility] Progress Note Progress Note DATE OF SERVICE: 09/19/16 HISTORY: day 4 of admission for making threats of harm toward others, relapse after inpatient substance abuse treatment VITAL SIGNS: See below. NEW TEST RESULTS: . CURRENT MEDICATIONS: See below. MENTAL STATUS EXAMINATION: Patient is a 41-year old male, who is asleep despite reduction of antipsychotics , has not gotten out of bed today. Speech: sleeping. Language skills are has been able to converse Thought processes including: needs further assessment Thought content: needs further assessment. Abstract reasoning, and computation: not addressed Description of associations: not assessed. Description of abnormal or psychotic thoughts: pt was not psychotic yesterday, pt verbalizes desire to harm others involved with GF and to harm GF per yesterday. Judgment: poor Insight: very limited. Orientation: needs further assessment Recent and remote memory: needs further assessment Attention span and concentration: poor Fund of knowledge: Impaired. Mood: tired. Affect: sleeping DIAGNOSES: 1. Bipolar disorder-unspecified 2. substance abuse disorder - amphetamines 3. Intermittent explosive disorder 4. Cannabis use disorder 5. H/o violence and aggression ASSESSMENT:staff reports patient spends a lot of time sleeping when he is admitted. he has indicated he can return to live with his mother. He has a pending court hearing for child support and he on Probation. He is prescribed Ativan 1 mg tid which may be inhibiting his wakefulness. he has been getting up for meals when asked. MANAGEMENT PLAN: decrease Ativan to 1 mg bid 1200 and hs. Admitting physician prescribed this as he has been on it in the community but the plan will be to taper him off prior to discharge. Given his h/o substance abuse he should not be prescribed controlled substances. Continue close obs, monitor behavior and encourage pt to be out of room as much as he is able. TIME SPENT: 15 minutes. Vital Signs Vital Signs Date Time Temp Pulse Resp B/P (MAP) Pulse Ox O2 Delivery O2 Flow Rate FiO2 09/19/16 07:06 99.9 68 16 112/71 (85) 09/17/16 06:45 94 Room Air Current Medications Current Medications Acetaminophen (Tylenol Tab) 650 mg Q6HP PRN PO HEADACHE or DISCOMFORT; Start at 20:45; Stop 10/16/16 at 20:44 Al Hydrox/Mg Hydrox/Simethicone (Mylanta) 30 ml Q4HP PRN PO HEARTBURN/ INDIGESTION; Start 09/16/16 at 20:45; Stop 10/16/16 at 20:44 Amoxicillin/ Clavulanate Potassium (Augmentin) 875 mg BID PO Last administered on 09/19/16 08:58; Start 09/17/16 at 09:00; Stop 09/26/16 at 23:59 Chlorhexidine Gluconate (Peridex Oral Rinse) 15 ml TID SSP Last administered on 09/19/16 08:58; Start 09/17/16 at 09:00; Stop 10/17/16 at 08:59 Citalopram Hydrobromide (CeleXA) 10 mg DAILY PO Last administered on 09/19/16 08:58; Start 09/17/16 at 09:00; Stop 10/17/16 at 08:59 Diphenhydramine HCl (Benadryl) 50 mg Q8HP PRN PO Extra Pyramidal Side Effects; Start 09/16/16 at 20:45; Stop 10/16/16 at 20:44 Gabapentin (Neurontin) 300 mg TID PO Last administered on 09/19/16 08:58; Start 09/17/16 at 09:00; Stop 10/17/16 at 08:59 Haloperidol (Haldol) 5 mg BID PO Last administered on 09/18/16 09:23; Start 09/18/16 at 09:00; Stop 09/18/16 at 14:27; Status DC Haloperidol (Haldol) 10 mg BID PO Last administered on 09/17/16 21:46; Start at 21:00; Stop 09/18/16 at 08:51; Status DC Haloperidol (Haldol) 10 mg TID PO ; Start 09/16/16 at 21:00; Stop 10/16/16 at 20: 59; Status UNV Home Med (Med Rec Complete!) ASDIRECTED XX ; Start 09/16/16 at 20:45; Stop at 21:01; Status DC Hydroxyzine HCl (Atarax) 50 mg Q4HP PRN PO ANXIETY; Start 09/17/16 at 10:00; Stop 10/17/16 at 09:59 [place] Carbonate ([place] Carbonate) 600 mg BID PO Last administered on 08:58; Start 09/17/16 at 09:00; Stop 10/17/16 at 08:59 Lorazepam (Ativan) 1 mg TID PO Last administered on 09/19/16 08:58; Start 09/16 at 21:00; Stop 09/23/16 at 20:59 Magnesium Hydroxide (Milk Of Magnesia) 30 ml DAILYPRN PRN PO CONSTIPATION; Start 09/16/16 at 20:45; Stop 10/16/16 at 20:44 Olanzapine (ZyPREXA) 5 mg Q4HP PRN PO AGITATION; Start 09/16/16 at 20:45; Stop 10/16/16 at 20:44 Olanzapine (ZyPREXA) 5 mg QHS PO ; Start 09/19/16 at 21:00; Stop 10/19/16 at 20: 59 Trazodone HCl (Desyrel) 50 mg QHSP PRN PO INSOMNIA; Start 09/16/16 at 20:45; Stop 10/16/16 at 20:44 Allergies Coded Allergies: No Known Drug Allergy (Unverified Allergy, Unknown, 08/12/16) Odessa Yarbrough Sep 19, 2016 14:55
[2016-09-19] MEDS ORDERED: NICOTINE POLACRILEX 2 MG GUM PO PRN (17:15)
[2016-09-19 18:00] VITALS: BP 123/59
[2016-09-19] MEDS: OLANZapine 5 MG TAB PO SCH (20:54)
[2016-09-20 07:00] VITALS: BP 116/59
[2016-09-20] MEDS: AUGMENTIN 875 MG TAB PO SCH ×2 (09:15→20:27)
[2016-09-20] MEDS: CHLORHEXIDINE GLUCONATE 0.12 % 15ML UDC (PERIDEX ORAL RINSE) SSP SCH ×3 (09:15→20:28)
[2016-09-20] MEDS: LITHIUM CARBONATE 600 MG CAP PO SCH ×2 (09:15→20:27)
[2016-09-20] MEDS: CitaloPRAM (CeleXA) 10 MG TABLET PO SCH (09:16)
[2016-09-20] MEDS: GABAPENTIN 300 MG CAP PO SCH ×3 (09:16→20:27)
[2016-09-20] MEDS: LORazepam 1 MG TAB PO SCH ×2 (12:07→20:27)
--- NOTE | 2016-09-20 13:00 | MHIPNPDOC ---
[facility] Progress Note Progress Note DATE OF SERVICE: 09/20/16 HISTORY: day 5 of admission for suicide risk following relapse after sa treatment. VITAL SIGNS: See below. NEW TEST RESULTS: na CURRENT MEDICATIONS: See below. MENTAL STATUS EXAMINATION: Patient is a 41-year old male, who is wearing hospital attire, bearded, wearing eye glasses rimmed in cardboard. Speech: Is spontaneous and clear. Language skills are good. Thought processes including: logical Thought content: appropriate. Abstract reasoning, and computation: fair. Description of associations: organized. Description of abnormal or psychotic thoughts: denies aud/vis disturbance, denies suicidal thoughts or homicidal thoughts. Expresses confusion about what his GF (or fiancee') intends to do about their relationship. Judgment: limited Insight: very limited. Orientation: oriented to place, person, surroundings, easily reoriented to day of week. Recent and remote memory: intact Attention span and concentration: poor, still has trouble remaining alert and awake for several hours in A.M. Fund of knowledge: Full Mood: depressed. Affect: blunted. DIAGNOSES: 1. Bipolar disorder-unspecified 2. substance abuse disorder - amphetamines 3. Intermittent explosive disorder 4. Cannabis use disorder 5. H/o violence and aggression ASSESSMENT:pt requested nicotine patch instead of nicorette gum. patch ordered for him. He was much more alert at noontime and has been out of bed per staff request since 9 a.m. he was observed sleeping in the lounge (or his eyes were closed). Pt states "I put my name on his certificate", when asked about being a father. He indicated he would like to have more interaction with his son but the child's mother does not permit it. He was asked where he sees himself in the next week or the next month and he had difficulty answering. He offered he could resume j[employer]ana work again but realizes that would be short- term due to the weather. He never finished HS and has no desire to get his GED. He like to build things but since that is only done outdoors he had no prospects on his horizon for indoor work. He does not enjoy cooking. "I hate it ". He brought up having trouble with TLS over lice some time a go. He says he got them from their residence. he made several trips to the ED but he claims that was after he had gotten rid of the bugs. he said no one would believe he had them and everyone thought it was due to the Methampethamine. he could not state how much meth he was using prior to going into rehab. He did confirm he can return to his mother's to live. He is expecting a visit by his PO today. He agrees to remain on [facility] over the weekend. Perhaps if he remains clear over the weekend we can plan discharge early next week. He is already expected to be attending [facility] outpatient program. Pt observed eating and drinking well today. MANAGEMENT PLAN: Payne level will be drawn on Friday. Orders are to hold a.m. lithium that day. continue to encourage pt to remain out of room for several hours a day. Continue meds, patch ordered, continue close obs. pt reports depressed mood however will see what lithium level is before adding more medication, lithium itself may resolve his depression. If not will discuss meds with him next week. TIME SPENT: 15 minutes. Vital Signs Vital Signs Date Time Temp Pulse Resp B/P (MAP) Pulse Ox O2 Delivery O2 Flow Rate FiO2 09/20/16 07:00 98.4 65 16 116/59 (78) 09/17/16 06:45 94 Room Air Current Medications Current Medications Acetaminophen (Tylenol Tab) 650 mg Q6HP PRN PO HEADACHE or DISCOMFORT; Start at 20:45; Stop 10/16/16 at 20:44 Al Hydrox/Mg Hydrox/Simethicone (Mylanta) 30 ml Q4HP PRN PO HEARTBURN/ INDIGESTION; Start 09/16/16 at 20:45; Stop 10/16/16 at 20:44 Amoxicillin/ Clavulanate Potassium (Augmentin) 875 mg BID PO Last administered on 09/20/16 09:15; Start 09/17/16 at 09:00; Stop 09/26/16 at 23:59 Chlorhexidine Gluconate (Peridex Oral Rinse) 15 ml TID SSP Last administered on 09/20/16 09:15; Start 09/17/16 at 09:00; Stop 10/17/16 at 08:59 Citalopram Hydrobromide (CeleXA) 10 mg DAILY PO Last administered on 09/20/16 09:16; Start 09/17/16 at 09:00; Stop 10/17/16 at 08:59 Diphenhydramine HCl (Benadryl) 50 mg Q8HP PRN PO Extra Pyramidal Side Effects; Start 09/16/16 at 20:45; Stop 10/16/16 at 20:44 Gabapentin (Neurontin) 300 mg TID PO Last administered on 09/20/16 09:16; Start 09/17/16 at 09:00; Stop 10/17/16 at 08:59 Haloperidol (Haldol) 5 mg BID PO Last administered on 09/18/16 09:23; Start 09/18/16 at 09:00; Stop 09/18/16 at 14:27; Status DC Haloperidol (Haldol) 10 mg BID PO Last administered on 09/17/16 21:46; Start at 21:00; Stop 09/18/16 at 08:51; Status DC Haloperidol (Haldol) 10 mg TID PO ; Start 09/16/16 at 21:00; Stop 10/16/16 at 20: 59; Status UNV Home Med (Med Rec Complete!) ASDIRECTED XX ; Start 09/16/16 at 20:45; Stop at 21:01; Status DC Hydroxyzine HCl (Atarax) 50 mg Q4HP PRN PO ANXIETY; Start 09/17/16 at 10:00; Stop 10/17/16 at 09:59 [place] Carbonate ([place] Carbonate) 600 mg BID PO Last administered on 09:15; Start 09/17/16 at 09:00; Stop 10/17/16 at 08:59; Status Future hold Lorazepam (Ativan) 1 mg BID@1200,2100 PO Last administered on 09/20/16 12:07; Start 09/19/16 at 21:00; Stop 09/26/16 at 20:59 Lorazepam (Ativan) 1 mg TID PO Last administered on 09/19/16 08:58; Start 09/16 at 21:00; Stop 09/19/16 at 14:49; Status DC Magnesium Hydroxide (Milk Of Magnesia) 30 ml DAILYPRN PRN PO CONSTIPATION; Start 09/16/16 at 20:45; Stop 10/16/16 at 20:44 Nicotine (Nicoderm Cq 21mg) 1 patch DAILY TD ; Start 09/20/16 at 12:45; Stop 11/26 at 12:44 Nicotine (Nicorette) 2 mg Q2HP PRN PO NICOTINE WITHDRAWAL; Start 09/19/16 at 17 :15; Stop 10/19/16 at 17:14; Status Cancel Non-Formulary Medication ( See Comment Field Below ) REMOVE NICOTINE PATCH DAILY@21 XX ; Start 09/20/16 at 21:00; Stop 10/20/16 at 20:59 Olanzapine (ZyPREXA) 5 mg Q4HP PRN PO AGITATION; Start 09/16/16 at 20:45; Stop 10/16/16 at 20:44 Olanzapine (ZyPREXA) 5 mg QHS PO Last administered on 09/19/16t 20:54; Start at 21:00; Stop 10/19/16 at 20:59 Trazodone HCl (Desyrel) 50 mg QHSP PRN PO INSOMNIA; Start 09/16/16 at 20:45; Stop 10/16/16 at 20:44 Allergies Coded Allergies: No Known Drug Allergy (Unverified Allergy, Unknown, 08/12/16) Odessa Yarbrough Sep 20, 2016 13:00
[2016-09-20] MEDS: NICOTINE 21MG/24HR 1 EA TRANSDERMAL TD SCH (13:20)
[2016-09-20 18:00] VITALS: BP 121/66
[2016-09-20] MEDS: OLANZapine 5 MG TAB PO SCH (20:27)
[2016-09-21 06:46] VITALS: BP 129/60
[2016-09-21 06:54] VITALS: BP 129/60
[2016-09-21] MEDS: CHLORHEXIDINE GLUCONATE 0.12 % 15ML UDC (PERIDEX ORAL RINSE) SSP SCH ×3 (09:00→20:37)
[2016-09-21] MEDS: CitaloPRAM (CeleXA) 10 MG TABLET PO SCH (09:24)
[2016-09-21] MEDS: GABAPENTIN 300 MG CAP PO SCH ×3 (09:24→20:36)
[2016-09-21] MEDS: NICOTINE 21MG/24HR 1 EA TRANSDERMAL TD SCH (09:24)
[2016-09-21] MEDS: LITHIUM CARBONATE 600 MG CAP PO SCH ×2 (09:24→20:36)
[2016-09-21] MEDS: AUGMENTIN 875 MG TAB PO SCH ×2 (09:24→20:36)
[2016-09-21] MEDS: LORazepam 1 MG TAB PO SCH ×2 (11:54→20:36)
[2016-09-21 18:00] VITALS: BP 135/76
[2016-09-21] MEDS: hydrOXYzine 50 MG TAB PO PRN (19:06)
[2016-09-21] MEDS: traZODone 50 MG TAB PO PRN (20:36)
[2016-09-21] MEDS: OLANZapine 5 MG TAB PO SCH (20:36)
[2016-09-22 06:34] VITALS: BP 133/63
[2016-09-22] MEDS: GABAPENTIN 300 MG CAP PO SCH ×3 (08:12→20:12)
[2016-09-22] MEDS: CitaloPRAM (CeleXA) 10 MG TABLET PO SCH (08:12)
[2016-09-22] MEDS: AUGMENTIN 875 MG TAB PO SCH ×2 (08:12→20:12)
[2016-09-22] MEDS: CHLORHEXIDINE GLUCONATE 0.12 % 15ML UDC (PERIDEX ORAL RINSE) SSP SCH ×3 (08:13→20:11)
[2016-09-22] MEDS: NICOTINE 21MG/24HR 1 EA TRANSDERMAL TD SCH (08:13)
[2016-09-22] MEDS: LORazepam 1 MG TAB PO SCH ×2 (12:00→20:12)
[2016-09-22] MEDS: hydrOXYzine 50 MG TAB PO PRN (16:36)
[2016-09-22] MEDS: ACETAMINOPHEN TAB 650MG DOSE (2X325MG) PO PRN (16:37)
[2016-09-22 18:34] VITALS: BP 120/61
[2016-09-22] MEDS: traZODone 50 MG TAB PO PRN (20:12)
[2016-09-22] MEDS: OLANZapine 5 MG TAB PO SCH (20:13)
[2016-09-22] MEDS: LITHIUM CARBONATE 600 MG CAP PO SCH (21:20)
[2016-09-23 07:10] VITALS: BP 108/61
[2016-09-23] MEDS: NICOTINE 21MG/24HR 1 EA TRANSDERMAL TD SCH (08:51)
[2016-09-23] MEDS: GABAPENTIN 300 MG CAP PO SCH (08:52)
[2016-09-23] MEDS: CitaloPRAM (CeleXA) 10 MG TABLET PO SCH (08:52)
[2016-09-23] MEDS: AUGMENTIN 875 MG TAB PO SCH (08:52)
[2016-09-23] MEDS: CHLORHEXIDINE GLUCONATE 0.12 % 15ML UDC (PERIDEX ORAL RINSE) SSP SCH (08:53)
[2016-09-23] MEDS ORDERED: LITHIUM CARBONATE 600 MG CAP PO SCH (09:00)
[2016-09-23] MEDS ORDERED: LORA1TAB12 PO (11:19)
[2016-09-23] MEDS ORDERED: HYDRO50TAB PO (11:19)
[2016-09-23] MEDS ORDERED: LITH300C PO (11:19)
[2016-09-23] MEDS ORDERED: OLAN5TAB PO (11:19)
[2016-09-23] MEDS ORDERED: LITH600C PO (11:19)
[2016-09-23] MEDS ORDERED: TRAZO50TA PO (11:22)
[2016-09-23] MEDS: LORazepam 1 MG TAB PO SCH (11:30)
[2016-09-23] MEDS: ACETAMINOPHEN TAB 650MG DOSE (2X325MG) PO PRN (12:28)
[2016-09-23] MEDS ORDERED: GABA-282 PO (12:58)
--- NOTE | 2016-09-23 13:16 | MHDSPDOC ---
[facility] Discharge Summary Discharge Summary DATE OF ADMISSION: Sep 16, 2016 at 20:41 DATE OF DISCHARGE: Sep 23, 2016 DISCHARGE DIAGNOSES: 1. Bipolar disorder-unspecified 2. substance abuse disorder - amphetamines 3. Intermittent explosive disorder 4. Cannabis use disorder 5. H/o violence and aggression 6. Chronic pain 7. tobacco dependency REASON FOR ADMISSION: Pt was discharge from inpatient rehab program. Was unable to connect with his GF when he got in town. Got angry. Presented to ED stating he would harm whom ever was involved with GF and that he was homeless. Due to the threats to harm another, pt was hospitalized. Once here he threatened the GF but has since retracted that statement. He tells us he can go to live with his mother which was confirmed by the CDP. CONSULTANTS INVOLVED: na TREATMENT AND PROGRESS ON THE UNIT : Patient slept nearly 72 hours after admission. Staff had difficulty finding him awake and alert enough to complete paperwork. He appeared over medicated and fha underwriter took steps to reduce his Haldol dose, then changed him to Zyprexa, and then started to lower Ativan Dose as he was still not very alert. By the end of last week he was awake and alert enough to remain out of his room for several hours in the a.m. and p.m. He was much more alert throughout the weekend and by today he is fully alert and ready for discharge. He denies any inner feelings or thoughts to harm his GF or any alleged BF or person she may be affiliated with now. HOSPITAL COURSE: Throughout the course of his inpatient stay, pt took medications as ordered. He wore cardboard framed glasses that worked well for him but appear very odd. He cannot see without them he says. Pt states he intends to attend [facility] for outpatient methamphetamine addiction which has been a chronic problem for Thomas. He also wants to participate in Anger Management work. He says he has to actually break something when angry in order to satisfy his anger. He has had a dx of Impulse Control disorder for a number of years. Pt was started on [place] which appeared to be consistent with previous medication plan. At 600 mg bid his level remained subtherapeutic. We were going to get a repeat level later in the week but will advise pt to obtain this in the community by his provider at [facility]. Pt did poorly on Haldol as he was somnolent for 3 days on a dose of 10 mg bid. Pt improved significantly when Zyprexa 5 mg was order at hs only. Manager Internet also reduced Ativan from 1 mg tid to 1 mg bid. The recommended goal is to continue tapering pt off this controlled substance. He has a significant drug abuse history and should not have access to these meds. Pt was taking Celexa 10 mg per his recollection. This dose was initiated but raised to 20 mg on discharge. Pt benefits from tid dosing of Gabapentin and this was maintained on the unit. The medication is also helpful for his chronic pain. There were no behavioral challenges while Thomas was here. As he became more alert he attended a few groups as he was encouraged to do. He used the nicotine patch while on the unit but does not plan to remain free of nicotine despite our best efforts to educate him on the dangers of smoking and the supports available to help him quit. DISCHARGE ASSESSMENT: Thomas was much more animated today for the first time. He wanted to leave. He has housing at his mother's which CDP verified for him. He showed definite signs of improvement after the weekend. He was out of the room more. He kept to himself but that is his way. He interacted when approached. His po intake was adequate. He denied problems of n/v/d. Pt was advised to make an appt with his PCP for a physical exam, however he is monitored regularly at our Ed. He was asked to make less frequent use of the ED as it is for emergencies only but he feels his needs are also emergent. Pt received antibiotic therapy for dental pain while on the unit and is referred to a dentist betsey. MENTAL STATUS EXAMINATION ON DISCHARGE: Patient is a 41-year old male, who is bearded, shot in stature, wearing funning glasses with cardboard frames, pleasant. Speech is logical, spontaneous. Language skills are good. Thought processes including: goal directed. Thought content: appropriate. Abstract reasoning, and computation: good. Description of associations: good. Description of abnormal or psychotic thoughts: denies auditory or visual changes , no psychotic symptoms illicited, not suicidal and denies homicidal thoughts toward anyone at discharge.. Judgment: limited. Insight: limited. Orientation to person, place, time and surroundings. Recent and remote memory:somewhat impaired.. Attention span and concentration: short attention span, concentration poor when assessed. Fund of knowledge: full. Mood: euthymic Affect: calm. MEDICATIONS ON DISCHARGE: - lithium for mood regulation/depression.--Pt needs level in 14 days if possible. subtherapeutic on 600 mg bid. - gabapentin for anxiety. - vistaril for anxiety -trazodone prn for sleep. -lorazepam for anxiety -celexa for depression/anxiety PLAN/FOLLOWUP ARRANGEMENTS: [facility] for substance abuse. Pt would benefit from vocational rehab training but none is available locally. 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 he does not have a vehicle and is on Probation. He is to see his diplomatic officer today or tomorrow. He was strongly dissuaded to avoid people places and things that lead him back into drug use. He has a son and needs to earn a living and support him as well as himself. Patient states he is interested in help for anger managment that should be available from his outpatient provider. The amount of time spent in the coordination of care for this patient was approximately 30 minutes. Vital Signs/I&Os Vital Signs Date Time Temp Pulse Resp B/P (MAP) Pulse Ox O2 Delivery O2 Flow Rate FiO2 09/23/16 07:10 98.4 61 16 108/61 (77) Room Air 09/17/16 06:45 94 Laboratory Data Labs 24H Laboratory Tests 2 09/22/16 16:52: [place] Level 0.52L Medications Scheduled Gabapentin (Gabapentin) 300 Mg Cap, 300 MG PO TID, (Reported) Gabapentin (Gabapentin) 300 Mg Cap, 300 MG PO TID for MOOD for 7 Days, #21 [place] Carbonate ([place] Carbonate) 300 Mg Cap, 900 MG PO QPM for MOOD for 7 Days, #21 [place] Carbonate ([place] Carbonate) 600 Mg Cap, 600 MG PO QAM for MOOD for 7 Days, #7 Lorazepam (Lorazepam) 1 Mg Tab, 1 MG PO BID@1200,2100 for ANXIETY for 7 Days, # 14 Olanzapine (Olanzapine) 5 Mg Tab, 5 MG PO QHS for MOOD for 7 Days, #7 Scheduled PRN Hydroxyzine HCl (Hydroxyzine HCl) 50 Mg Tab, 50 MG PO Q4HP PRN for ANXIETY for 7 Days, #42 Hydroxyzine Pamoate (Hydroxyzine Pamoate) 25 Mg Cap, 25 MG PO QID PRN for ANXIETY, (Reported) Trazodone HCl (Trazodone HCl) 50 Mg Tab, 50 MG PO QHSP PRN for INSOMNIA for 7 Days, #7 Allergies Coded Allergies: No Known Drug Allergy (Unverified Allergy, Unknown, 08/12/16) Odessa Yarbrough Sep 23, 2016 13:16
[2016-09-23] MEDS ORDERED: LITHIUM CARBONATE 300 MG CAP PO SCH (21:00)
[2016-09-24] MEDS ORDERED: CitaloPRAM (CeleXA) 20 MG TAB PO SCH (09:00)
== END 2016-09-23 13:55 | disposition home or self-care (01) | DRG 753 ==
LOC: M ED 17:44 → M ED INP 20:41 → M PSY 22:38
PROVIDERS: ADMIT Psychiatry & Neurology Psychiatry; ATTEND Psychiatry & Neurology Psychiatry
DX: F31.9 Bipolar disorder, unspecified (principal); F15.10 Other stimulant abuse, uncomplicated; F12.10 Cannabis abuse, uncomplicated; F63.81 Intermittent explosive disorder; F17.210 Nicotine dependence, cigarettes, uncomplicated; K04.7 Periapical abscess without sinus; G89.29 Other chronic pain; Z79.899 Other long term (current) drug therapy

== ENCOUNTER 2016-10-14 14:02 | Emergency (ER) | payer OTHER ==
[~2016-10-14] VITALS: Ht 167.6 cm; Wt 74.1 kg
[~2016-10-14 14:02] MED LIST changes: +CLON-412 PO; +DIPH25CA PO; +GABA-282 PO; +HYDR1CAP25 PO; +HYDRO50TAB PO; +IBUP40TA PO; +LITH300C PO; +LITH600C PO; +LORA1TAB12 PO; +TRAZO50TA PO
[2016-10-14 14:03] VITALS: BP 122/69
[2016-10-14] MEDS ORDERED: CYCL10TA PO (17:00)
[2016-10-14] MEDS ORDERED: IBUP-1022 PO (17:00)
[2016-10-14] MEDS ORDERED: IBUPROFEN 600 MG TAB PO ONE (17:00)
[2016-10-14] MEDS ORDERED: CYCLOBENZAPRINE 10 MG TAB PO ONE (17:00)
== END 2016-10-14 17:22 | disposition home or self-care (01) ==
LOC: M ED 14:02
DX: S16.1XXA Strain of muscle, fascia and tendon at neck level, initial encounter (principal); X50.0XXA Overexertion from strenuous movement or load, initial encounter; Y92.89 Other specified places as the place of occurrence of the external cause; Y93.89 Activity, other specified; Y99.0 Civilian activity done for income or pay

== ENCOUNTER → 2016-10-28 | Outpatient (CLI) | payer OTHER ==
[~2016-10-28] MED LIST changes: +AMOX500T PO; +CYCL10TA PO; +DOXY100T PO; +IBUP-1022 PO
--- NOTE | 2016-10-28 16:28 | REP ---
MRI cervical spine without contrast: History: Spondylosis. Chronic neck pain. Comparison radiographs 07/17/2016 and 10/03/2014. Technique: Sagittal and axial T1 and T2-weighted scans are acquired in the usual fashion with and without fat saturation. Sequences include spin echo, turbo spin-echo, and STIR imaging sequences. MRI findings: Cervical vertebral body heights are preserved and alignment is normal. Craniocervical junction and upper cervical cord are normal in appearance. Disc spaces are maintained except at C4-5 and C5-6 where there is mild narrowing and decreased disc space signal intensity on T2-weighted scans. Axial and sagittal images at C4-5 demonstrate a broad-based left posterior disc bulge effacing the ventral subarachnoid space. No cord compression is seen. At C5-C6, there is diffuse disc bulging effacing the ventral subarachnoid space. No central canal stenosis is seen. No neural foraminal encroachment is appreciated. The other cervical spine disc levels are unremarkable. Impression: Minimal degenerative disc changes C4-5 and C5-6. Disc bulging at these two levels. Signed by Cholo Nguyen MD 10/28/2016 04:36 P
== END ==
LOC: M RAD 13:18
PROVIDERS: ATTEND Family Medicine Addiction Medicine
DX: M50.321 Other cervical disc degeneration at C4-C5 level (principal); M50.322 Other cervical disc degeneration at C5-C6 level; M50.222 Other cervical disc displacement at C5-C6 level

== ENCOUNTER 2016-12-06 16:18 | Inpatient (IN) | payer MEDICAID, OTHER ==
[~2016-12-06] VITALS: Ht 167.6 cm; Wt 77.0 kg
[~2016-12-06 16:18] MED LIST changes: -AMOX500T PO; -DOXY100T PO
[2016-12-06] MEDS ORDERED: LITH300C PO (16:30)
[2016-12-06 17:27] LABS: MEAN CORPUSCULAR HEMOGLOBIN 32.4 pg (27.0-33.0); MEAN CORPUSCULAR HGB CONC 33.3 g/dl (32.0-36.5); MEAN CORPUSCULAR VOLUME 97.3 fl (80.0-96.0); PLATELET COUNT, AUTOMATED 274 10^3/uL (150-450); RED CELL DISTRIBUTION WIDTH 12.6 % (11.5-14.5); WHITE BLOOD COUNT 9.1 10^3/uL (4.0-10.0)
[2016-12-06 18:01] LABS: METHADONE URINE NEGATIVE (NEGATIVE)
[2016-12-06 18:23] LABS: ALBUMIN/GLOBULIN RATIO 1.08 (1.00-1.93); ALKALINE PHOSPHATASE 75 U/L (45-117); ALT/SGPT 19 U/L (12-78); ANION GAP 6 MEQ/L (8-16); AST/SGOT 9 U/L (7-37); BILIRUBIN,DIRECT < 0.1 MG/DL (0.0-0.2); BILIRUBIN,TOTAL 0.2 MG/DL (0.2-1.0); BLOOD UREA NITROGEN 7 MG/DL (7-18); CALCIUM LEVEL 9.1 MG/DL (8.5-10.1); CARBON DIOXIDE LEVEL 29 MEQ/L (21-32); CHLORIDE LEVEL 106 MEQ/L (98-107); CREATININE FOR GFR 0.89 MG/DL (0.70-1.30); GLOMERULAR FILTRATION RATE > 60.0 (>60); GLUCOSE, FASTING 80 MG/DL (70-105); POTASSIUM SERUM 3.9 MEQ/L (3.5-5.1); SODIUM LEVEL 141 MEQ/L (136-145); TOTAL PROTEIN 7.7 GM/DL (6.4-8.2)
[2016-12-06] MEDS ORDERED: LORazepam 1 MG TAB PO STA (20:23)
[2016-12-06] MEDS ORDERED: LITHIUM CARBONATE 150 MG CAP PO ONE (20:30)
[2016-12-06] MEDS ORDERED: GABAPENTIN 300 MG CAP PO ONE (20:30)
[2016-12-06] MEDS ORDERED: GABAPENTIN 400 MG CAP PO SCH (21:00)
[2016-12-07] MEDS ORDERED: MOM 30ML SUSPENSION UDC PO PRN (00:15)
[2016-12-07] MEDS ORDERED: MAALOX 30 ML SUSP *UDC PO PRN (00:15)
[2016-12-07] MEDS ORDERED: IBUPROFEN 400 MG TAB PO PRN (00:15)
[2016-12-07] MEDS ORDERED: traZODone 50 MG TAB PO PRN (00:15)
[2016-12-07] MEDS: DOXYCYCLINE HYCLATE 100 MG TAB PO SCH (00:33)
[2016-12-07] MEDS: hydrOXYzine 50 MG TAB PO PRN ×2 (00:41→21:35)
[2016-12-07] MEDS: LITHIUM CARBONATE 150 MG CAP PO SCH ×3 (00:42→21:36)
[2016-12-07] MEDS: CYCLOBENZAPRINE 10 MG TAB PO PRN (00:42)
[2016-12-07] MEDS ORDERED: NICOTINE 21MG/24HR 1 EA TRANSDERMAL TD ONE (01:00)
[2016-12-07 07:03] VITALS: BP 106/57
[2016-12-07] MEDS ORDERED: NICOTINE 21MG/24HR 1 EA TRANSDERMAL TD SCH (09:00)
[2016-12-07] MEDS: NICOTINE 21MG/24HR 1 EA TRANSDERMAL TD SCH (10:06)
[2016-12-07] MEDS: GABAPENTIN 300 MG CAP PO SCH ×2 (10:08→21:35)
[2016-12-07 18:00] VITALS: BP 105/60
[2016-12-08] MEDS: BACITRACIN OINT 30GM TOP SCH ×3 (00:33→20:24)
[2016-12-08 06:00] VITALS: BP 122/61
[2016-12-08] MEDS: DOXYCYCLINE HYCLATE 100 MG TAB PO SCH ×2 (08:00→20:22)
[2016-12-08] MEDS: GABAPENTIN 300 MG CAP PO SCH (08:00)
[2016-12-08] MEDS: LITHIUM CARBONATE 150 MG CAP PO SCH ×2 (08:00→20:22)
[2016-12-08] MEDS: NICOTINE 21MG/24HR 1 EA TRANSDERMAL TD SCH (08:01)
[2016-12-08] MEDS ORDERED: INFLUENZA QUADRIVALENT PF VACCINE 0.5ML SYRINGE (90686) IM ONE (09:00)
[2016-12-08] MEDS: OXcarbazepine 150 MG TAB PO SCH ×2 (11:41→20:22)
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
[2016-12-08 18:00] VITALS: BP 124/58
[2016-12-08] MEDS: hydrOXYzine 50 MG TAB PO PRN (22:42)
[2016-12-08] MEDS: traZODone 50 MG TAB PO PRN (22:42)
[2016-12-08] MEDS: CYCLOBENZAPRINE 10 MG TAB PO PRN (22:43)
[2016-12-09 06:25] VITALS: BP 113/63
[2016-12-09] MEDS ORDERED: OXcarbazepine 150 MG TAB PO SCH (09:00)
[2016-12-09] MEDS: DOXYCYCLINE HYCLATE 100 MG TAB PO SCH ×2 (09:09→20:36)
[2016-12-09] MEDS: NICOTINE 21MG/24HR 1 EA TRANSDERMAL TD SCH (09:09)
[2016-12-09] MEDS: BACITRACIN OINT 30GM TOP SCH ×2 (09:10→20:36)
[2016-12-09] MEDS: OXcarbazepine 150 MG TAB PO SCH ×2 (09:10→20:37)
[2016-12-09] MEDS: LITHIUM CARBONATE 150 MG CAP PO SCH ×2 (09:10→20:37)
--- NOTE | 2016-12-09 15:08 | MHIPN ---
DATE OF SERVICE: 12/08/2016 41-year-old male with history of bipolar disorder and intermittent explosive disorder admitted on 9.39 legal status patient was experiencing suicidal and homicidal ideation. MEDICATIONS: - lithium 450 mg by mouth twice a day - trazodone as needed for insomnia - Neurontin 300 mg by mouth twice a day SUBJECTIVE: "I am feeling about the same, I have problems with mood swings and being explosive". OBJECTIVE: No major changes from yesterday. Patient reports that for many years he had problems managing anger and explosive behavior. Patient was at one point taking Depakote, but says that it makes me very numb and I cannot take it. Patient reports limited results with lithium. Denies side effect from the medication. No auditory or visual or hallucinations or delusions. MENTAL STATUS EXAMINATION: Patient is dressed in [facility]. Patient is cooperative. Has fair eye contact. Speech is normal in rate, volume, and articulation. Mood is anxious, labile, irritable. Affect is congruent with mood. No delusions or hallucinations. Memory, attention, and concentration are fair. Patient is able to contract for safety while in the hospital, but says continues having suicidal and homicidal thoughts. Insight and judgment is limited. ASSESSMENT: 1. Bipolar disorder. 2. Depression. 3. Suicidal ideation. 4. Homicidal ideation. PLAN: 1. Start Trileptal 75 mg by mouth twice a day. 2. Discontinue Neurontin. 3. Continue lithium 450 mg by mouth twice a day. 4. Continue medication management, individual and group therapy.
[2016-12-09 18:00] VITALS: BP 127/60
[2016-12-09] MEDS: hydrOXYzine 50 MG TAB PO PRN (22:22)
--- NOTE | 2016-12-10 02:16 | HPE ---
DATE OF ADMISSION: 12/06/2016 HISTORY OF PRESENT ILLNESS: Please refer to psychiatric history and evaluation for further details on this admission. This examination and history is intended for medical issues, which may need treatment, followup or consult on this 41-year-old male. ALLERGIES: No known drug allergies. SOCIAL HISTORY: He is single. He lives in [place]. He smokes 1-2 packs of cigarettes per day. He does not drink alcohol. He has a history of methamphetamine abuse. He has had none for 6 weeks. He smokes marijuana occasionally. PAST MEDICAL HISTORY: 1. Bipolar disorder. 2. Explosive impulse disorder. 3. Neck pain. 4. Chronic low back pain. 5. Poor dentition. 6. History of substance abuse. 7. Tobacco use. PAST SURGICAL HISTORY: Left foot surgery. FAMILY HISTORY: Mother unknown. Father 60s alive and well. Siblings, he has one brother alive and well. Child alive and well. LABORATORY STUDIES: WBC 9.1, hemoglobin 16.1, hematocrit 50.8, platelets 274. Electrolytes were normal. Toxicology screen was negative. BUN and creatinine were 7 and 0.89. REVIEW OF SYSTEMS: 10-system review was done. Other than chronic low neck and back pain, he complained of removing a tick from his left lateral abdomen flank area. It is slightly reddened. No drainage. HOME MEDICATIONS: - gabapentin 300 mg by mouth three times a day - lithium 450 mg by mouth twice a day - hydroxyzine 50 mg by mouth every 4 hours as needed for anxiety - ibuprofen 600 mg by mouth every 6 hours as needed for pain - cyclobenzaprine 10 mg by mouth three times a day as needed for muscle spasm PHYSICAL EXAMINATION: 41-year-old cooperative male in no acute distress. Height 66 inches, weight 65.9 kg, body mass index (BMI) 23.5. Blood pressure 123/64, pulse 74, temperature 98, oxygen saturation 100% on room air, respirations 16. Patient is alert and oriented times three. Pupils equal and react to light. Extraocular muscles intact. Cornea and sclerae clear. Conjunctivae were normal. No facial asymmetry. Pharynx, tongue and gums pink and moist. Tongue is midline. Neck is supple without lymphadenopathy. No thyromegaly, no goiter. Carotids 2+ without bruit. Chest clear to auscultation without wheeze or retraction. Heart is regular. Abdomen is benign. Bowel sounds positive. Genitourinary/rectal: Not done. Extremities show equal strength, full range of motion. No cyanosis, clubbing or edema. Peripheral pulses equal and palpable bilaterally. Skin is warm and dry. Gait steady. Left lateral abdomen flank area small reddened area, scabbed, no drainage. IMPRESSION/PLAN: 1. Psychiatric plan per psychiatry. 2. Chronic low back and neck pain. Continue ibuprofen as needed. 3. Tick bite. Will get a Lyme titer IgG, IgM, doxycycline 100 by mouth twice a day for 2 months. Bacitracin ointment to the spot twice a day.
[2016-12-10 06:44] VITALS: BP 140/70
[2016-12-10] MEDS: BACITRACIN OINT 30GM TOP SCH ×2 (08:32→20:41)
[2016-12-10] MEDS: OXcarbazepine 150 MG TAB PO SCH ×2 (08:32→20:41)
[2016-12-10] MEDS: NICOTINE 21MG/24HR 1 EA TRANSDERMAL TD SCH (08:32)
[2016-12-10] MEDS: LITHIUM CARBONATE 150 MG CAP PO SCH ×2 (08:32→20:40)
[2016-12-10] MEDS: DOXYCYCLINE HYCLATE 100 MG TAB PO SCH ×2 (08:32→20:39)
[2016-12-10] MEDS: hydrOXYzine 50 MG TAB PO PRN (10:21)
[2016-12-10] MEDS ORDERED: DOXY100T PO (11:43)
--- NOTE | 2016-12-10 12:59 | MHIPN ---
DATE: 12/09/2016 41-year-old male with history of bipolar disorder, intermittent explosive disorder, admitted for suicidal and homicidal ideations. MEDICATIONS: - lithium 450 mg by mouth twice a day - trazodone as needed for insomnia - Neurontin 300 mg by mouth twice a day - Trileptal 75 mg by mouth twice a day SUBJECTIVE: "I am not feeling better." OBJECTIVE: Patient continues to report depression with intermittent suicidal thoughts. Patient is denying side effects from the medications. The patient is in bed, has very little interaction with other patient's and staff. Patient is able to contract for safety while in the hospital. There is no evidence of psychotic symptoms. No auditory or visual hallucinations or delusions. MENTAL STATUS EXAMINATION: Patient is dressed in [facility]. Patient is cooperative during exam. She has poor eye contact. Speech is soft and monotone. Mood is anxious, labile and irritable. Affect is congruent with mood. There is no evidence of psychotic symptoms. No auditory or visual hallucinations or delusions. Memory, attention and concentration are fair. Patient is able to contract safety while in the hospital. Insight and judgment is poor. ASSESSMENT: 1. Bipolar disorder, depressed episode. 2. Suicidal ideation. 3. Homicidal thoughts. PLAN: 1. Continue with Trileptal 75 mg by mouth twice a day. 2. [place] 450 mg by mouth twice a day. 3. Continue medication management, individual and group therapy.
[2016-12-10 18:00] VITALS: BP 136/71
[2016-12-10] MEDS: traZODone 50 MG TAB PO PRN (22:51)
[2016-12-11 07:04] VITALS: BP 144/75
[2016-12-11] MEDS: DOXYCYCLINE HYCLATE 100 MG TAB PO SCH (08:03)
[2016-12-11] MEDS: LITHIUM CARBONATE 150 MG CAP PO SCH (08:03)
[2016-12-11] MEDS: OXcarbazepine 150 MG TAB PO SCH (08:05)
[2016-12-11] MEDS: NICOTINE 21MG/24HR 1 EA TRANSDERMAL TD SCH (08:05)
[2016-12-11] MEDS: BACITRACIN OINT 30GM TOP SCH (08:05)
[2016-12-11] MEDS ORDERED: AMOX500T PO (08:53)
--- NOTE | 2016-12-11 10:36 | MHIPN ---
DATE OF SERVICE: 12/10/2016 41-year-old male with history of bipolar disorder, intermittent explosive disorder, admitted to our unit for suicidal and homicidal ideation. MEDICATIONS: - lithium 450 mg by mouth twice a day - Trileptal 75 mg by mouth twice a day - trazodone as needed for insomnia SUBJECTIVE: "I don't want to take Trileptal or any seizure medication". OBJECTIVE: The patient continues to report mood swings. He refused to take Trileptal. I discussed the treatment plan with the patient. The patient is not willing to take Depakote or Trileptal. He was taking lithium as outpatient and he agrees to take that after the discussion of his treatment plan. I told him that if he does not want medication change he will be getting the recommendations of his outpatient psychiatrist. The patient has been interacting with other patients and staff. There is no evidence of a major depression. He had the meeting of his traffic police officer. MENTAL STATUS EXAMINATION: Patient dressed in [facility]. Patient is cooperative during the exam. Has fair eye contact. Speech is normal in rate, volume and articulation. Affect is congruent with moood. There is no evidence of psychotic symptoms. No auditory or visual hallucinations or delusions. Memory, attention and concentration are fair. Insight and judgment is poor. ASSESSMENT: 1. Bipolar disorder, depressive episode. 2. Suicidal ideation. 3. Homicidal thoughts. PLAN: 1. Discontinue Trileptal. 2. Continue lithium 450 mg by mouth twice a day. 3. Continue medication management, individual and group therapy. 4. Discharge process has been started, probably will be discharged tomorrow morning.
[2016-12-12 00:10] LABS: Lyme Disease IgG Ab 18 kDa Ban Absent (.); Lyme Disease IgG Ab 23 kDa Ban Absent (.); Lyme Disease IgG Ab 28 kDa Ban Absent (.); Lyme Disease IgG Ab 30 kDa Ban Absent (.); Lyme Disease IgG Ab 39 kDa Ban Absent (.); Lyme Disease IgG Ab 41 kDa Ban Absent (.); Lyme Disease IgG Ab 45 kDa Ban Absent (.); Lyme Disease IgG Ab 58 kDa Ban Absent (.); Lyme Disease IgG Ab 66 kDa Ban Absent (.); Lyme Disease IgG Ab 93 kDa Ban Absent (.); Lyme Disease IgG West Blot Int Negative (.); Lyme Disease IgG/IgM Antibodie <0.91 ISR (0.00-0.90); Lyme Disease IgM Ab 23 kDa Ban Absent (.); Lyme Disease IgM Ab 39 kDa Ban Absent (.); Lyme Disease IgM Ab 41 kDa Ban Absent (.); Lyme Disease IgM Ab Quantitati 0.84 index (0.00-0.79); Lyme Disease IgM West Blot Int Negative (.)
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
== END 2016-12-11 10:45 | disposition home or self-care (01) | DRG 885 ==
LOC: M ED 16:18 → M ED INP 18:54 → M PSY 22:34 → M ED INP 12-07 23:14
PROVIDERS: ADMIT Psychiatry & Neurology Psychiatry; ATTEND Psychiatry & Neurology Psychiatry
DX: F31.9 Bipolar disorder, unspecified (principal); R45.851 Suicidal ideations; F12.21 Cannabis dependence, in remission; F63.81 Intermittent explosive disorder; Z79.899 Other long term (current) drug therapy; F17.210 Nicotine dependence, cigarettes, uncomplicated; M54.5 Low back pain; M54.2 Cervicalgia; S30.861A Insect bite (nonvenomous) of abdominal wall, initial encounter; Y92.9 Unspecified place or not applicable; Y93.9 Activity, unspecified; Y99.9 Unspecified external cause status; X58.XXXA Exposure to other specified factors, initial encounter

== ENCOUNTER → 2017-02-11 | Outpatient (CLI) | payer OTHER | LOC: M RAD 17:37 | DX: M47.892 Other spondylosis, cervical region (principal); M47.894 Other spondylosis, thoracic region; M47.896 Other spondylosis, lumbar region | CPT/HCPCS: 72052 ==

== ENCOUNTER 2017-04-10 14:26 | Emergency (ER) | payer OTHER ==
[2017-04-10] MEDS: AMOXICILLIN 500 MG CAP PO (19:05)
[2017-04-10] MEDS: IBUPROFEN 800 MG TAB PO (19:05)
== END 2017-04-10 19:11 | disposition home or self-care (01) ==
LOC: M ED 14:26
DX: K02.9 Dental caries, unspecified (principal); K05.00 Acute gingivitis, plaque induced; F31.9 Bipolar disorder, unspecified; Z79.899 Other long term (current) drug therapy; F17.210 Nicotine dependence, cigarettes, uncomplicated
CPT/HCPCS: 99283

== ENCOUNTER 2017-05-19 22:44 | Inpatient (IN) | payer MEDICAID, OTHER ==
[2017-05-20 01:08] LABS: HEMATOCRIT 46.9 % (42.0-52.0); HEMOGLOBIN 15.4 g/dl (13.5-17.5); MEAN CORPUSCULAR HEMOGLOBIN 30.9 pg (27.0-33.0); MEAN CORPUSCULAR HGB CONC 32.8 g/dl (32.0-36.5); MEAN CORPUSCULAR VOLUME 94.2 fl (80.0-96.0); PLATELET COUNT, AUTOMATED 330 10^3/uL (150-450); RED BLOOD COUNT 4.98 10^6/uL (4.30-6.10); RED CELL DISTRIBUTION WIDTH 13.2 % (11.5-14.5); WHITE BLOOD COUNT 10.3 10^3/uL (4.0-10.0)
[2017-05-20 01:30] LABS: AMPHETAMINES LEVEL URINE NEGATIVE (NEGATIVE); BARBITURATES URINE NEGATIVE (NEGATIVE); BENZODIAZEPINES URINE NEGATIVE (NEGATIVE); CANNABINOIDS URINE NEGATIVE (NEGATIVE); COCAINE METABOLITE URINE NEGATIVE (NEGATIVE); METHADONE URINE NEGATIVE (NEGATIVE); OPIATES URINE NEGATIVE (NEGATIVE); PHENCYCLIDINE URINE NEGATIVE (NEGATIVE)
[2017-05-20 01:39] LABS: ACETAMINOPHEN LEVEL < 2.0 UG/ML (10.0-30.0); ALBUMIN 3.4 GM/DL (3.2-5.2); ALBUMIN/GLOBULIN RATIO 1.17 (1.00-1.93); ALKALINE PHOSPHATASE 62 U/L (45-117); ALT/SGPT 21 U/L (12-78); ANION GAP 5 MEQ/L (8-16); AST/SGOT 15 U/L (7-37); BILIRUBIN,DIRECT 0.1 MG/DL (0.0-0.2); BILIRUBIN,TOTAL 0.4 MG/DL (0.2-1.0); BLOOD UREA NITROGEN 8 MG/DL (7-18); CALCIUM LEVEL 8.4 MG/DL (8.5-10.1); CARBON DIOXIDE LEVEL 27 MEQ/L (21-32); CHLORIDE LEVEL 112 MEQ/L (98-107); CREATININE FOR GFR 0.91 MG/DL (0.70-1.30); ETHYL ALCOHOL (ETHANOL) < 0.003 % (0.000-0.010); GLOMERULAR FILTRATION RATE > 60.0 (>60); GLUCOSE, FASTING 88 MG/DL (70-100); POTASSIUM SERUM 4.2 MEQ/L (3.5-5.1); SODIUM LEVEL 144 MEQ/L (136-145); THYROID STIMULATING HORMONE 0.647 uIU/ML (0.358-3.740); TOTAL PROTEIN 6.3 GM/DL (6.4-8.2)
[2017-05-20 01:46] LABS: LITHIUM LEVEL 0.35 MEQ/L (0.60-1.20)
[2017-05-20] MEDS ORDERED: MOM 30ML SUSPENSION UDC PO (02:15)
[2017-05-20] MEDS ORDERED: MAALOX 30 ML SUSP *UDC PO (02:15)
[2017-05-20] MEDS ORDERED: ACETAMINOPHEN TAB 650MG DOSE (2X325MG) PO (02:15)
[2017-05-20] MEDS: NICOTINE 21MG/24HR 1 EA TRANSDERMAL TD ×2 (09:00→13:03)
[2017-05-20] MEDS: LITHIUM CARBONATE 450 MG **CR** TAB PO ×2 (13:03→21:13)
[2017-05-20] MEDS: GABAPENTIN 300 MG CAP PO ×2 (15:10→21:13)
[2017-05-20] MEDS: traZODone 50 MG TAB PO (21:13)
[2017-05-21] MEDS: LITHIUM CARBONATE 450 MG **CR** TAB PO ×2 (09:56→21:06)
[2017-05-21] MEDS: GABAPENTIN 300 MG CAP PO ×3 (09:56→21:06)
[2017-05-21] MEDS: NICOTINE 21MG/24HR 1 EA TRANSDERMAL TD (10:00)
[2017-05-21] MEDS: SERTRALINE HCL 50 MG TAB PO (21:06)
[2017-05-22] MEDS: traZODone 50 MG TAB PO (01:43)
[2017-05-22] MEDS: NICOTINE 21MG/24HR 1 EA TRANSDERMAL TD (08:20)
[2017-05-22] MEDS: GABAPENTIN 300 MG CAP PO ×3 (08:20→20:21)
[2017-05-22] MEDS: LITHIUM CARBONATE 450 MG **CR** TAB PO ×2 (08:21→20:21)
[2017-05-22] MEDS: SERTRALINE HCL 50 MG TAB PO (20:21)
[2017-05-23] MEDS: traZODone 50 MG TAB PO (00:37)
[2017-05-23 07:57] LABS: LITHIUM LEVEL 0.59 MEQ/L (0.60-1.20)
[2017-05-23 08:39] LABS: TOTAL 25(OH) VITAMIN D 10.4 NG/ML (30.0-100.0); VITAMIN B12 LEVEL 278 PG/ML (247-911)
[2017-05-23] MEDS: NICOTINE 21MG/24HR 1 EA TRANSDERMAL TD (08:57)
[2017-05-23] MEDS: GABAPENTIN 300 MG CAP PO ×3 (08:57→20:00)
[2017-05-23] MEDS: LITHIUM CARBONATE 450 MG **CR** TAB PO ×2 (08:59→20:01)
[2017-05-23] MEDS: VITAMIN D 50,000 UNITS CAPSULE (ERGOCALCIFEROL 1.25MG) PO (10:03)
[2017-05-23] MEDS: SERTRALINE HCL 50 MG TAB PO (20:00)
[2017-05-24] MEDS: traZODone 50 MG TAB PO (01:33)
[2017-05-24] MEDS: NICOTINE 21MG/24HR 1 EA TRANSDERMAL TD (08:30)
[2017-05-24] MEDS: LITHIUM CARBONATE 450 MG **CR** TAB PO (08:30)
[2017-05-24] MEDS: GABAPENTIN 300 MG CAP PO ×3 (08:30→22:36)
[2017-05-24] MEDS: LITHIUM CARBONATE 300 MG **CR** TAB PO (22:36)
[2017-05-24] MEDS: SERTRALINE HCL 50 MG TAB PO (22:36)
[2017-05-24] MEDS: DICLOFENAC EPOLAMINE 1.3 % PATCH TOP (22:39)
[2017-05-25] MEDS: hydrOXYzine 25 MG TAB PO (01:37)
[2017-05-25] MEDS: traZODone 50 MG TAB PO (01:37)
[2017-05-25] MEDS: DICLOFENAC EPOLAMINE 1.3 % PATCH TOP ×2 (09:00→20:52)
[2017-05-25] MEDS: GABAPENTIN 300 MG CAP PO ×3 (09:10→20:53)
[2017-05-25] MEDS: NICOTINE 21MG/24HR 1 EA TRANSDERMAL TD (09:10)
[2017-05-25] MEDS: LITHIUM CARBONATE 300 MG **CR** TAB PO ×2 (09:10→20:53)
[2017-05-25] MEDS: SERTRALINE HCL 50 MG TAB PO (20:53)
[2017-05-26] MEDS: traZODone 50 MG TAB PO (01:44)
[2017-05-26] MEDS: DICLOFENAC EPOLAMINE 1.3 % PATCH TOP (08:14)
[2017-05-26] MEDS: NICOTINE 21MG/24HR 1 EA TRANSDERMAL TD (08:14)
[2017-05-26] MEDS: LITHIUM CARBONATE 300 MG **CR** TAB PO (08:15)
[2017-05-26] MEDS: GABAPENTIN 300 MG CAP PO (08:15)
== END 2017-05-26 09:40 | disposition home or self-care (01) | DRG 885 ==
LOC: M ED INP 05-20 02:06 → M PSY 05-20 02:37 → M ED 22:44
DX: F33.2 Major depressive disorder, recurrent severe without psychotic features (principal); R45.851 Suicidal ideations; F63.81 Intermittent explosive disorder; R45.850 Homicidal ideations; F17.210 Nicotine dependence, cigarettes, uncomplicated; G89.29 Other chronic pain; Z79.899 Other long term (current) drug therapy; Z91.19 Patient's noncompliance with other medical treatment and regimen

== ENCOUNTER 2017-07-15 09:25 | Emergency (ER) | payer OTHER, MEDICAID | END 2017-07-15 10:58 | disposition home or self-care (01) | LOC: M ED 09:25 | DX: S09.90XA Unspecified injury of head, initial encounter (principal); Y04.0XXA Assault by unarmed brawl or fight, initial encounter; Y92.410 Unspecified street and highway as the place of occurrence of the external cause; Z79.899 Other long term (current) drug therapy; F17.200 Nicotine dependence, unspecified, uncomplicated; F31.9 Bipolar disorder, unspecified; F41.9 Anxiety disorder, unspecified; F19.11 Other psychoactive substance abuse, in remission | CPT/HCPCS: 70450 ==

== ENCOUNTER 2017-10-02 00:15 | Inpatient (IN) | payer MEDICAID, OTHER ==
[2017-10-02 01:30] LABS: HEMATOCRIT 43.6 % (42.0-52.0); HEMOGLOBIN 14.7 g/dl (13.5-17.5); MEAN CORPUSCULAR HEMOGLOBIN 31.5 pg (27.0-33.0); MEAN CORPUSCULAR HGB CONC 33.7 g/dl (32.0-36.5); MEAN CORPUSCULAR VOLUME 93.6 fl (80.0-96.0); PLATELET COUNT, AUTOMATED 284 10^3/uL (150-450); RED BLOOD COUNT 4.66 10^6/uL (4.30-6.10); RED CELL DISTRIBUTION WIDTH 13.2 % (11.5-14.5); WHITE BLOOD COUNT 8.6 10^3/uL (4.0-10.0)
[2017-10-02 01:58] LABS: ALBUMIN 3.5 GM/DL (3.2-5.2); ALBUMIN/GLOBULIN RATIO 1.17 (1.00-1.93); ALKALINE PHOSPHATASE 71 U/L (45-117); ALT/SGPT 17 U/L (12-78); ANION GAP 8 MEQ/L (8-16); AST/SGOT 12 U/L (7-37); BILIRUBIN,DIRECT < 0.1 MG/DL (0.0-0.2); BILIRUBIN,TOTAL 0.2 MG/DL (0.2-1.0); BLOOD UREA NITROGEN 7 MG/DL (7-18); CALCIUM LEVEL 8.9 MG/DL (8.5-10.1); CARBON DIOXIDE LEVEL 29 MEQ/L (21-32); CHLORIDE LEVEL 107 MEQ/L (98-107); CREATININE FOR GFR 0.74 MG/DL (0.70-1.30); ETHYL ALCOHOL (ETHANOL) < 0.003 % (0.000-0.010); GLOMERULAR FILTRATION RATE > 60.0 (>60); GLUCOSE, FASTING 85 MG/DL (70-100); POTASSIUM SERUM 4.1 MEQ/L (3.5-5.1); SALICYLATE LEVEL 2.4 MG/DL (5.0-30.0); SODIUM LEVEL 144 MEQ/L (136-145); TOTAL PROTEIN 6.5 GM/DL (6.4-8.2)
[2017-10-02 02:14] LABS: ACETAMINOPHEN LEVEL < 2.0 UG/ML (10.0-30.0)
[2017-10-02 02:37] LABS: AMPHETAMINES LEVEL URINE NEGATIVE (NEGATIVE); BARBITURATES URINE NEGATIVE (NEGATIVE); BENZODIAZEPINES URINE NEGATIVE (NEGATIVE); CANNABINOIDS URINE NEGATIVE (NEGATIVE); COCAINE METABOLITE URINE NEGATIVE (NEGATIVE); METHADONE URINE NEGATIVE (NEGATIVE); OPIATES URINE NEGATIVE (NEGATIVE); PHENCYCLIDINE URINE NEGATIVE (NEGATIVE)
[2017-10-02] MEDS ORDERED: MOM 30ML SUSPENSION UDC PO (03:00)
[2017-10-02] MEDS ORDERED: MAALOX 30 ML SUSP *UDC PO (03:00)
[2017-10-02] MEDS ORDERED: traZODone 50 MG TAB PO (03:00)
[2017-10-02] MEDS ORDERED: LORazepam 2 MG TAB PO (03:00)
[2017-10-02] MEDS: SERTRALINE 100 MG TAB PO (12:20)
[2017-10-02] MEDS: GABAPENTIN 300 MG CAP PO ×3 (12:20→20:48)
[2017-10-02] MEDS: ACETAMINOPHEN TAB 650MG DOSE (2X325MG) PO (20:48)
[2017-10-03] MEDS: GABAPENTIN 300 MG CAP PO ×4 (09:00→20:29)
[2017-10-03] MEDS: SERTRALINE 100 MG TAB PO (09:03)
[2017-10-03] MEDS: MELOXICAM (MOBIC) 7.5 MG TAB PO (10:39)
[2017-10-03] MEDS: ACETAMINOPHEN TAB 650MG DOSE (2X325MG) PO (10:40)
[2017-10-03] MEDS: HALOPERIDOL 5 MG TAB PO (20:29)
[2017-10-04] MEDS: SERTRALINE 100 MG TAB PO (09:26)
[2017-10-04] MEDS: GABAPENTIN 300 MG CAP PO ×3 (09:26→20:33)
[2017-10-04] MEDS: MELOXICAM (MOBIC) 7.5 MG TAB PO (20:33)
[2017-10-04] MEDS: HALOPERIDOL 5 MG TAB PO (20:33)
[2017-10-05] MEDS: GABAPENTIN 300 MG CAP PO ×3 (08:14→21:26)
[2017-10-05] MEDS: SERTRALINE 100 MG TAB PO (08:14)
[2017-10-05] MEDS: MELOXICAM (MOBIC) 7.5 MG TAB PO ×2 (08:15→21:26)
[2017-10-05] MEDS: HALOPERIDOL 5 MG TAB PO ×2 (14:24→21:26)
[2017-10-05] MEDS: NICOTINE 21MG/24HR 1 EA TRANSDERMAL TD (15:10)
[2017-10-06] MEDS: SERTRALINE 100 MG TAB PO (08:42)
[2017-10-06] MEDS: GABAPENTIN 300 MG CAP PO (08:42)
[2017-10-06] MEDS: NICOTINE 21MG/24HR 1 EA TRANSDERMAL TD (08:43)
[2017-10-06] MEDS: MELOXICAM (MOBIC) 7.5 MG TAB PO (12:09)
== END 2017-10-06 13:40 | disposition home or self-care (01) | DRG 885 ==
LOC: M ED 00:15 → M ED INP 02:49 → M PSY 04:55
DX: F33.2 Major depressive disorder, recurrent severe without psychotic features (principal); R45.851 Suicidal ideations; R45.850 Homicidal ideations; M54.2 Cervicalgia; M79.1 Myalgia; M54.5 Low back pain; E55.9 Vitamin D deficiency, unspecified; F17.210 Nicotine dependence, cigarettes, uncomplicated; M25.512 Pain in left shoulder; M25.511 Pain in right shoulder; Z79.899 Other long term (current) drug therapy

== ENCOUNTER 2018-01-05 13:03 | Emergency (ER) | payer MEDICAID | END 2018-01-05 14:46 | disposition left against medical advice (07) | LOC: M ED 13:03 | DX: Z53.29 Procedure and treatment not carried out because of patient's decision for other reasons (principal) ==

== ENCOUNTER 2018-01-05 17:44 | Emergency (ER) | payer OTHER, MEDICAID ==
[2018-01-05] MEDS: predniSONE 20 MG TAB PO (21:00)
[2018-01-05] MEDS: BENZONATATE 100 MG CAP PO (21:00)
[2018-01-05] MEDS: IPRATROPIUM 0.5MG/ALBUTEROL 2.5MG INH SOL UD 3ML (DUONEB)(J7620) NEB (21:00)
[2018-01-05 21:24] LABS: BASO # 0.1 10^3/uL (0.0-0.2); EOS # 0.3 10^3/uL (0.0-0.50); EOS % 2.2 % (0.0-3.0); HEMOGLOBIN 14.3 g/dl (13.5-17.5); IMMATURE GRANULOCYTE % 0.3 % (0-3.0); LYMPH % 17.2 % (24.0-44.0); MEAN CORPUSCULAR HEMOGLOBIN 30.9 pg (27.0-33.0); MEAN CORPUSCULAR HGB CONC 32.5 g/dl (32.0-36.5); MONO % 8.4 % (0.0-5.0); NEUTROPHILS # 8.2 10^3/uL (1.8-7.7); NEUTROPHILS % 70.9 % (36.0-66.0); PLATELET COUNT, AUTOMATED 364 10^3/uL (150-450); RED BLOOD COUNT 4.63 10^6/uL (4.30-6.10); RED CELL DISTRIBUTION WIDTH 13.8 % (11.5-14.5); WHITE BLOOD COUNT 11.5 10^3/uL (4.0-10.0)
[2018-01-05 21:43] LABS: ANION GAP 7 MEQ/L (8-16); BLOOD UREA NITROGEN 12 MG/DL (7-18); CALCIUM LEVEL 8.7 MG/DL (8.5-10.1); CARBON DIOXIDE LEVEL 27 MEQ/L (21-32); CHLORIDE LEVEL 108 MEQ/L (98-107); CPK CREATINE PHOSPHOKINASE 71 U/L (39-308); CREATININE FOR GFR 0.72 MG/DL (0.70-1.30); GLOMERULAR FILTRATION RATE > 60.0 (>60); GLUCOSE, FASTING 85 MG/DL (70-100); MB/CK RELATIVE INDEX 2.54 (< OR =4); NT-PRO BNP 44 PG/ML (<125); POTASSIUM SERUM 4.5 MEQ/L (3.5-5.1); SODIUM LEVEL 142 MEQ/L (136-145); TROPONIN I < 0.02 NG/ML (< 0.10)
[2018-01-05] MEDS: AZITHROMYCIN 250 MG TAB PO (22:20)
== END 2018-01-05 22:30 | disposition home or self-care (01) ==
LOC: M ED 17:44
DX: J06.9 Acute upper respiratory infection, unspecified (principal); B34.9 Viral infection, unspecified; F17.210 Nicotine dependence, cigarettes, uncomplicated
CPT/HCPCS: 71046

== ENCOUNTER 2018-01-13 10:43 | Inpatient (IN) | payer OTHER ==
[2018-01-13] MEDS: LEVALBUTEROL 1.25 MG/0.5 ML CONCENTRATE NEB INH ×3 (13:01→14:47)
[2018-01-13] MEDS: NAPROXEN 250 MG TAB PO (13:03)
[2018-01-13 14:21] LABS: BASO # 0.1 10^3/uL (0.0-0.2); BASO % 1.3 % (0.0-1.0); EOS # 0.2 10^3/uL (0.0-0.50); EOS % 2.3 % (0.0-3.0); HEMATOCRIT 45.3 % (42.0-52.0); HEMOGLOBIN 14.8 g/dl (13.5-17.5); IMMATURE GRANULOCYTE % 0.4 % (0-3.0); LYMPH % 20.6 % (24.0-44.0); MEAN CORPUSCULAR HEMOGLOBIN 30.8 pg (27.0-33.0); MEAN CORPUSCULAR HGB CONC 32.7 g/dl (32.0-36.5); MEAN CORPUSCULAR VOLUME 94.4 fl (80.0-96.0); MONO # 1.5 10^3/uL (0.0-0.8); MONO % 15.7 % (0.0-5.0); NEUTROPHILS # 5.6 10^3/uL (1.8-7.7); NEUTROPHILS % 59.7 % (36.0-66.0); PLATELET COUNT, AUTOMATED 381 10^3/uL (150-450); RED CELL DISTRIBUTION WIDTH 14.4 % (11.5-14.5); WHITE BLOOD COUNT 9.5 10^3/uL (4.0-10.0)
[2018-01-13 14:51] LABS: ALBUMIN 3.1 GM/DL (3.2-5.2); ALBUMIN/GLOBULIN RATIO 0.91 (1.00-1.93); ALKALINE PHOSPHATASE 94 U/L (45-117); ALT/SGPT 46 U/L (12-78); ANION GAP 5 MEQ/L (8-16); AST/SGOT 19 U/L (7-37); BILIRUBIN,TOTAL 0.1 MG/DL (0.2-1.0); BLOOD UREA NITROGEN 9 MG/DL (7-18); CALCIUM LEVEL 8.5 MG/DL (8.5-10.1); CARBON DIOXIDE LEVEL 29 MEQ/L (21-32); CHLORIDE LEVEL 107 MEQ/L (98-107); CREATININE FOR GFR 0.66 MG/DL (0.70-1.30); GLOMERULAR FILTRATION RATE > 60.0 (>60); GLUCOSE, FASTING 88 MG/DL (70-100); POTASSIUM SERUM 4.2 MEQ/L (3.5-5.1); SODIUM LEVEL 141 MEQ/L (136-145); TOTAL PROTEIN 6.5 GM/DL (6.4-8.2)
[2018-01-13] MEDS ORDERED: ISOVUE-370 76% 100ML VIAL (Q9967) As Ordered (15:01)
[2018-01-13] MEDS: traMADol 50 MG TAB PO (18:43)
[2018-01-13] MEDS: ACETAMINOPHEN TAB 650MG DOSE (2X325MG) PO (18:44)
[2018-01-13] MEDS ORDERED: IPRATROPIUM 0.5MG/ALBUTEROL 2.5MG INH SOL UD 3ML (DUONEB)(J7620) NEB (19:15)
[2018-01-13] MEDS ORDERED: ACETAMINOPHEN TAB 650MG DOSE (2X325MG) PO (19:15)
[2018-01-13] MEDS: IPRATROPIUM 0.5MG/ALBUTEROL 2.5MG INH SOL UD 3ML (DUONEB)(J7620) NEB (20:18)
[2018-01-13] MEDS: cefTRIAXone SOD 1 GM in D5W MINI-BAG PLUS 50 ML IV (20:18)
[2018-01-13] MEDS: AZITHROMYCIN INJ 500 MG, VIAL MATE ADAPTER 1 EACH in D5W 250 ML IV (21:00)
[2018-01-13] MEDS: GABAPENTIN 300 MG CAP PO (21:00)
[2018-01-13] MEDS ORDERED: HEPARIN SOD (PORCINE) 5000 UNITS/ML VIAL SC (22:00)
[2018-01-14] MEDS ORDERED: DULoxetine 30 MG CAP (CYMBALTA) PO (09:00)
== END 2018-01-14 01:45 | disposition left against medical advice (07) | DRG 143 ==
LOC: M MS4PR 01-14 00:56 → M ED 10:43 → M ED INP 19:09
DX: J90 Pleural effusion, not elsewhere classified (principal); F31.9 Bipolar disorder, unspecified; F17.210 Nicotine dependence, cigarettes, uncomplicated; R91.8 Other nonspecific abnormal finding of lung field; F63.81 Intermittent explosive disorder; M54.2 Cervicalgia; Z79.899 Other long term (current) drug therapy

== ENCOUNTER 2018-01-16 21:08 | Inpatient (IN) | payer OTHER ==
[2018-01-16 21:52] LABS: BASO # 0.1 10^3/uL (0.0-0.2); EOS # 0.2 10^3/uL (0.0-0.50); EOS % 2.1 % (0.0-3.0); HEMATOCRIT 47.4 % (42.0-52.0); HEMOGLOBIN 15.7 g/dl (13.5-17.5); IMMATURE GRANULOCYTE % 0.5 % (0-3.0); LYMPH # 2.4 10^3/uL (1.5-4.5); LYMPH % 24.2 % (24.0-44.0); MEAN CORPUSCULAR HEMOGLOBIN 31.2 pg (27.0-33.0); MEAN CORPUSCULAR HGB CONC 33.1 g/dl (32.0-36.5); MONO # 1.7 10^3/uL (0.0-0.8); MONO % 17.4 % (0.0-5.0); NEUTROPHILS # 5.4 10^3/uL (1.8-7.7); NEUTROPHILS % 54.8 % (36.0-66.0); PLATELET COUNT, AUTOMATED 422 10^3/uL (150-450); RED BLOOD COUNT 5.04 10^6/uL (4.30-6.10); RED CELL DISTRIBUTION WIDTH 14.4 % (11.5-14.5); WHITE BLOOD COUNT 9.8 10^3/uL (4.0-10.0)
[2018-01-16 22:07] LABS: ANION GAP 9 MEQ/L (8-16); BLOOD UREA NITROGEN 12 MG/DL (7-18); CARBON DIOXIDE LEVEL 29 MEQ/L (21-32); CHLORIDE LEVEL 102 MEQ/L (98-107); CREATININE FOR GFR 0.76 MG/DL (0.70-1.30); GLOMERULAR FILTRATION RATE > 60.0 (>60); GLUCOSE, FASTING 113 MG/DL (70-100); POTASSIUM SERUM 4.5 MEQ/L (3.5-5.1); SODIUM LEVEL 140 MEQ/L (136-145)
[2018-01-16] MEDS: IPRATROPIUM 0.5MG/ALBUTEROL 2.5MG INH SOL UD 3ML (DUONEB)(J7620) NEB ×3 (22:13→22:46)
[2018-01-16 22:28] LABS: ABG BASE EXCESS 4.1 (-2.0-2.0); ABG HCO3 28.4 MEQ/L (22.0-26.0); ABG O2 SATURATION 95.6 % (95.0-99.0); ABG PARTIAL PRESSURE CO2 41.5 mmHg (35.0-45.0); ABG PARTIAL PRESSURE O2 72.1 mmHg (75.0-100.0); ABG TOTAL CO2 29.7 MEQ/L (22.0-29.0); ABG pH (ARTERIAL) 7.453 UNITS (7.350-7.450)
[2018-01-17] MEDS: BUDESONIDE 0.25 MG/2 ML INHALATION SUSPENSION INH ×3 (01:12→20:00)
[2018-01-17] MEDS ORDERED: ONDANSETRON 4MG/2ML VIAL (J2405) IV (01:15)
[2018-01-17] MEDS ORDERED: BISACODYL 5 MG TAB PO (01:15)
[2018-01-17] MEDS: IPRATROPIUM 0.5MG/ALBUTEROL 2.5MG INH SOL UD 3ML (DUONEB)(J7620) NEB ×5 (01:15→20:00)
[2018-01-17] MEDS ORDERED: diphenhydrAMINE INJ 50MG/ML VIAL (J1200) IV (01:30)
[2018-01-17] MEDS ORDERED: HALOPERIDOL 5 MG/ML VIAL (J1630) IV (01:30)
[2018-01-17] MEDS: methylPREDNISolone INJ 40 MG/1 ML VIAL (J2920) IV ×2 (02:56→10:24)
[2018-01-17] MEDS: AZITHROMYCIN INJ 500 MG, VIAL MATE ADAPTER 1 EACH in D5W 250 ML IV (02:57)
[2018-01-17] MEDS: cefTRIAXone SOD 1 GM in D5W MINI-BAG PLUS 50 ML IV (04:10)
[2018-01-17] MEDS: PERCOCET 5MG/325MG TAB PO ×2 (04:20→20:35)
[2018-01-17] MEDS: HEPARIN SOD (PORCINE) 5000 UNITS/ML VIAL SC ×3 (06:13→20:35)
[2018-01-17] MEDS: GABAPENTIN 300 MG CAP PO ×3 (10:24→20:34)
[2018-01-17] MEDS: DULoxetine 30 MG CAP (CYMBALTA) PO (10:25)
[2018-01-17] MEDS: PANTOPRAZOLE 40MG TAB (PROTONIX) PO (10:25)
[2018-01-17] MEDS ORDERED: ISOVUE-370 76% 100ML VIAL (Q9967) As Ordered (12:52)
[2018-01-17] MEDS ORDERED: MIDAZOLAM INJ 2 MG/2 ML VIAL (J2250) As Ordered ×3 (16:05)
[2018-01-17] MEDS ORDERED: FLUMAZENIL 0.5 MG/5 ML VIAL As Ordered (16:05)
[2018-01-17] MEDS ORDERED: LIDOCAINE 1% MDV 20ML VIAL As Ordered (16:07)
[2018-01-17] MEDS: MIDAZOLAM INJ 2 MG/2 ML VIAL (J2250) IV ×2 (16:14→16:17)
[2018-01-17] MEDS: LIDOCAINE 1% MDV 20ML VIAL SC (16:15)
[2018-01-17] MEDS ORDERED: zolPIDEM TARTRATE 5 MG TAB PO (16:45)
[2018-01-17] MEDS ORDERED: LEVALBUTEROL 1.25 MG/0.5 ML CONCENTRATE NEB NEB ×2 (16:45→20:00)
[2018-01-17] MEDS: KETOROLAC 30 MG/ML VIAL (J1885) IV ×2 (16:54→23:55)
[2018-01-17] MEDS: KCL 20MEQ IN D5/NS 1000ML 1,000 ML IV (17:03)
[2018-01-17 17:08] LABS: PH BODY FLUID 7.399 UNITS (NOT ESTABLISHED); SOURCE, BODY FLUID pH PLEURAL
[2018-01-17 17:13] LABS: BF MONONUCLEAR CELL % 88.6 % (0-0); BF POLYMORPHONUCLEAR CELL % 11.4 % (0-0); RBC BODY FLUID 9 10^3/uL (<2); WBC BODY FLUID 2052 /uL (0-10)
[2018-01-17] MEDS: NORCO, ANEXSIA 5/325MG TABLET (HYDROcodone/ACETAMINOPHEN) PO (17:13)
[2018-01-17 17:15] LABS: SOURCE, BODY FLUID PLEURAL
[2018-01-17 17:16] LABS: APPEARANCE, BODY FLUID HAZY (CLEAR); BF DIFF IF INDICATED? YES (NO); PLEURAL FL COLOR AMBER (COLORLESS)
[2018-01-17 17:41] LABS: AMYLASE, BODY FLUID 25 U/L (NOT ESTABLISHED); CHOLESTEROL, BODY FLUID 84 MG/DL (NOT ESTABLISHED); LDH, BODY FLUID 664 U/L (NOT ESTABLISHED); SOURCE, BODY FLUID ALBUMIN PLEURAL; SOURCE, BODY FLUID AMYLASE PLEURAL; SOURCE, BODY FLUID CHOL PLEURAL; SOURCE, BODY FLUID GLUCOSE PLEURAL; SOURCE, BODY FLUID LDH PLEURAL; SOURCE, BODY FLUID TOT PROTEIN PLEURAL; SOURCE, BODY FLUID TRIG PLEURAL; TOTAL PROTEIN, BODY FLUID 4.2 G/DL (NOT ESTABLISHED); TRIGLYCERIDE, BODY FLUID 30 MG/DL (NOT ESTABLISHED)
[2018-01-17] MEDS: DOCUSATE SODIUM 100 MG CAP PO (20:34)
[2018-01-17 22:56] LABS: LDH LACTATE DEHYDROGENASE 450 U/L (87-241)
[2018-01-18] MEDS: AZITHROMYCIN INJ 500 MG, VIAL MATE ADAPTER 1 EACH in D5W 250 ML IV (01:59)
[2018-01-18] MEDS: IPRATROPIUM 0.5MG/ALBUTEROL 2.5MG INH SOL UD 3ML (DUONEB)(J7620) NEB ×4 (02:00→19:39)
[2018-01-18] MEDS: cefTRIAXone SOD 1 GM in D5W MINI-BAG PLUS 50 ML IV (03:44)
[2018-01-18 04:58] LABS: HEMATOCRIT 42.8 % (42.0-52.0); MEAN CORPUSCULAR HEMOGLOBIN 30.3 pg (27.0-33.0); MEAN CORPUSCULAR HGB CONC 32.7 g/dl (32.0-36.5); MEAN CORPUSCULAR VOLUME 92.6 fl (80.0-96.0); PLATELET COUNT, AUTOMATED 399 10^3/uL (150-450); RED BLOOD COUNT 4.62 10^6/uL (4.30-6.10); RED CELL DISTRIBUTION WIDTH 14.4 % (11.5-14.5); WHITE BLOOD COUNT 14.5 10^3/uL (4.0-10.0)
[2018-01-18] MEDS: HEPARIN SOD (PORCINE) 5000 UNITS/ML VIAL SC ×3 (05:07→20:01)
[2018-01-18 05:08] LABS: INR 0.85; PROTHROMBIN TIME 11.7 SECONDS (12.1-14.4)
[2018-01-18] MEDS: KETOROLAC 30 MG/ML VIAL (J1885) IV ×4 (05:08→23:10)
[2018-01-18 05:28] LABS: ALBUMIN 2.7 GM/DL (3.2-5.2); ALBUMIN/GLOBULIN RATIO 0.64 (1.00-1.93); ALKALINE PHOSPHATASE 80 U/L (45-117); ALT/SGPT 35 U/L (12-78); ANION GAP 9 MEQ/L (8-16); AST/SGOT 20 U/L (7-37); BILIRUBIN,TOTAL 0.1 MG/DL (0.2-1.0); BLOOD UREA NITROGEN 20 MG/DL (7-18); CALCIUM LEVEL 8.2 MG/DL (8.5-10.1); CARBON DIOXIDE LEVEL 24 MEQ/L (21-32); CHLORIDE LEVEL 109 MEQ/L (98-107); CREATININE FOR GFR 0.75 MG/DL (0.70-1.30); GLOMERULAR FILTRATION RATE > 60.0 (>60); GLUCOSE, FASTING 118 MG/DL (70-100); POTASSIUM SERUM 4.2 MEQ/L (3.5-5.1); SODIUM LEVEL 142 MEQ/L (136-145); TOTAL PROTEIN 6.9 GM/DL (6.4-8.2)
[2018-01-18 06:12] LABS: ABG BASE EXCESS 0.2 (-2.0-2.0); ABG HCO3 25.3 MEQ/L (22.0-26.0); ABG PARTIAL PRESSURE CO2 42.9 mmHg (35.0-45.0); ABG PARTIAL PRESSURE O2 80.4 mmHg (75.0-100.0); ABG STANDARD HCO3 24.6 MEQ/L (22.0-26.0); ABG TOTAL CO2 26.6 MEQ/L (22.0-29.0); ABG pH (ARTERIAL) 7.389 UNITS (7.350-7.450)
[2018-01-18] MEDS: BUDESONIDE 0.25 MG/2 ML INHALATION SUSPENSION INH ×2 (07:33→19:39)
[2018-01-18] MEDS: NORCO, ANEXSIA 5/325MG TABLET (HYDROcodone/ACETAMINOPHEN) PO ×3 (07:43→20:00)
[2018-01-18] MEDS: PANTOPRAZOLE 40MG TAB (PROTONIX) PO (08:26)
[2018-01-18] MEDS: GABAPENTIN 300 MG CAP PO ×3 (08:26→20:00)
[2018-01-18] MEDS: DULoxetine 30 MG CAP (CYMBALTA) PO (08:26)
[2018-01-18] MEDS: DOCUSATE SODIUM 100 MG CAP PO ×2 (08:27→21:44)
[2018-01-18] MEDS: MOM 30ML SUSPENSION UDC PO (08:27)
[2018-01-19] MEDS: IPRATROPIUM 0.5MG/ALBUTEROL 2.5MG INH SOL UD 3ML (DUONEB)(J7620) NEB ×4 (00:09→20:18)
[2018-01-19] MEDS: LORazepam 2 MG/ML VIAL (J2060) IV ×2 (00:22→23:03)
[2018-01-19] MEDS: AZITHROMYCIN INJ 500 MG, VIAL MATE ADAPTER 1 EACH in D5W 250 ML IV (01:59)
[2018-01-19] MEDS: cefTRIAXone SOD 1 GM in D5W MINI-BAG PLUS 50 ML IV (03:41)
[2018-01-19] MEDS: HEPARIN SOD (PORCINE) 5000 UNITS/ML VIAL SC ×3 (05:18→21:38)
[2018-01-19] MEDS: KETOROLAC 30 MG/ML VIAL (J1885) IV ×3 (05:19→17:43)
[2018-01-19 05:25] LABS: HEMATOCRIT 41.6 % (42.0-52.0); HEMOGLOBIN 13.5 g/dl (13.5-17.5); MEAN CORPUSCULAR HEMOGLOBIN 30.1 pg (27.0-33.0); MEAN CORPUSCULAR HGB CONC 32.5 g/dl (32.0-36.5); MEAN CORPUSCULAR VOLUME 92.9 fl (80.0-96.0); PLATELET COUNT, AUTOMATED 395 10^3/uL (150-450); RED BLOOD COUNT 4.48 10^6/uL (4.30-6.10); RED CELL DISTRIBUTION WIDTH 14.5 % (11.5-14.5); WHITE BLOOD COUNT 8.2 10^3/uL (4.0-10.0)
[2018-01-19 05:34] LABS: INR 0.92; PROTHROMBIN TIME 12.4 SECONDS (12.1-14.4)
[2018-01-19 05:52] LABS: ALBUMIN 2.5 GM/DL (3.2-5.2); ALBUMIN/GLOBULIN RATIO 0.68 (1.00-1.93); ALKALINE PHOSPHATASE 75 U/L (45-117); ALT/SGPT 46 U/L (12-78); ANION GAP 6 MEQ/L (8-16); AST/SGOT 25 U/L (7-37); BILIRUBIN,TOTAL 0.1 MG/DL (0.2-1.0); BLOOD UREA NITROGEN 17 MG/DL (7-18); CALCIUM LEVEL 8.5 MG/DL (8.5-10.1); CARBON DIOXIDE LEVEL 27 MEQ/L (21-32); CHLORIDE LEVEL 107 MEQ/L (98-107); CREATININE FOR GFR 0.67 MG/DL (0.70-1.30); GLOMERULAR FILTRATION RATE > 60.0 (>60); GLUCOSE, FASTING 86 MG/DL (70-100); POTASSIUM SERUM 4.1 MEQ/L (3.5-5.1); SODIUM LEVEL 140 MEQ/L (136-145); TOTAL PROTEIN 6.2 GM/DL (6.4-8.2)
[2018-01-19] MEDS: BUDESONIDE 0.25 MG/2 ML INHALATION SUSPENSION INH ×2 (07:34→20:18)
[2018-01-19] MEDS: DULoxetine 30 MG CAP (CYMBALTA) PO (08:55)
[2018-01-19] MEDS: PANTOPRAZOLE 40MG TAB (PROTONIX) PO (08:55)
[2018-01-19] MEDS: DOCUSATE SODIUM 100 MG CAP PO ×2 (08:55→21:00)
[2018-01-19] MEDS: GABAPENTIN 300 MG CAP PO ×3 (08:56→21:38)
[2018-01-19] MEDS: MOM 30ML SUSPENSION UDC PO (08:56)
[2018-01-19] MEDS ORDERED: LIDOCAINE 2% INJ 100 MG/5 ML SDV (FOR ANES.) As Ordered (11:25)
[2018-01-19] MEDS ORDERED: ROCURONIUM BROMIDE 50 MG/5 ML VIAL As Ordered ×2 (11:25→12:57)
[2018-01-19] MEDS ORDERED: PROPOFOL 200 MG/20 ML VIAL As Ordered (11:25)
[2018-01-19] MEDS ORDERED: MIDAZOLAM INJ 2 MG/2 ML VIAL (J2250) As Ordered (11:26)
[2018-01-19 11:27] LABS: HIV 1&2 SCREEN CENTAUR NEGATIVE (NEGATIVE)
[2018-01-19] MEDS ORDERED: fentaNYL 100 MCG/2 ML INJECTION (J3010) As Ordered ×2 (11:27)
[2018-01-19] MEDS: MUPIROCIN 2% OINT 22 GM TUBE TOP (11:32)
[2018-01-19] MEDS: BUPIVACAINE HCL 0.5% 30 ML VIAL As Ordered (11:51)
[2018-01-19] MEDS: MUPIROCIN 2% OINT 22 GM TUBE As Ordered (11:58)
[2018-01-19] MEDS: THROMBIN SOLN 20,000 UNITS KIT As Ordered (12:16)
[2018-01-19] MEDS: EPINEPHrine 1MG/10ML SYRINGE 1.5IN As Ordered (12:16)
[2018-01-19] MEDS: CETACAINE SPRAY 5GM As Ordered (12:16)
[2018-01-19] MEDS: ceFAZolin 2 GM/D5W 50 ML IV BAG (J0690 PER 500MG) As Ordered (12:18)
[2018-01-19] MEDS ORDERED: METOCLOPRAMIDE INJ 10MG/2ML VIAL (J2765) As Ordered (12:57)
[2018-01-19] MEDS ORDERED: KETOROLAC 60 MG/2 ML VIAL (J1885) As Ordered (12:57)
[2018-01-19] MEDS ORDERED: ONDANSETRON 4MG/2ML VIAL (J2405) As Ordered (12:57)
[2018-01-19] MEDS ORDERED: SUGAMMADEX SODIUM 500 MG/5 ML VIAL (BRIDION) As Ordered (13:51)
[2018-01-19] MEDS: BUPIVACAINE LIPOSOME/PF 1.3% 20ML VIAL (13.3MG/ML)(EXPAREL)(C9290 PER1MG) As Ordered (13:56)
[2018-01-19] MEDS ORDERED: NORCO, ANEXSIA 5/325MG TABLET (HYDROcodone/ACETAMINOPHEN) PO (14:45)
[2018-01-19] MEDS ORDERED: ONDANSETRON 4MG/2ML VIAL (J2405) IV (14:45)
[2018-01-19] MEDS ORDERED: fentaNYL 100 MCG/2 ML INJECTION (J3010) IV (14:45)
[2018-01-20] MEDS: KETOROLAC 30 MG/ML VIAL (J1885) IV ×5 (00:07→23:50)
[2018-01-20] MEDS: IPRATROPIUM 0.5MG/ALBUTEROL 2.5MG INH SOL UD 3ML (DUONEB)(J7620) NEB ×4 (01:45→20:13)
[2018-01-20] MEDS: AZITHROMYCIN INJ 500 MG, VIAL MATE ADAPTER 1 EACH in D5W 250 ML IV (01:56)
[2018-01-20] MEDS: cefTRIAXone SOD 1 GM in D5W MINI-BAG PLUS 50 ML IV (03:42)
[2018-01-20] MEDS: ACETAMINOPHEN TAB 650MG DOSE (2X325MG) PO ×2 (04:00→13:19)
[2018-01-20 05:33] LABS: HEMATOCRIT 38.2 % (42.0-52.0); HEMOGLOBIN 12.5 g/dl (13.5-17.5); MEAN CORPUSCULAR HEMOGLOBIN 30.3 pg (27.0-33.0); MEAN CORPUSCULAR HGB CONC 32.7 g/dl (32.0-36.5); MEAN CORPUSCULAR VOLUME 92.7 fl (80.0-96.0); PLATELET COUNT, AUTOMATED 363 10^3/uL (150-450); RED BLOOD COUNT 4.12 10^6/uL (4.30-6.10); RED CELL DISTRIBUTION WIDTH 14.2 % (11.5-14.5); WHITE BLOOD COUNT 10.1 10^3/uL (4.0-10.0)
[2018-01-20] MEDS: HEPARIN SOD (PORCINE) 5000 UNITS/ML VIAL SC ×3 (05:36→21:04)
[2018-01-20 05:49] LABS: PROTHROMBIN TIME 12.3 SECONDS (12.1-14.4)
[2018-01-20 05:59] LABS: ALBUMIN 2.1 GM/DL (3.2-5.2); ALBUMIN/GLOBULIN RATIO 0.64 (1.00-1.93); ALKALINE PHOSPHATASE 69 U/L (45-117); ALT/SGPT 32 U/L (12-78); ANION GAP 8 MEQ/L (8-16); AST/SGOT 21 U/L (7-37); BILIRUBIN,TOTAL < 0.1 MG/DL (0.2-1.0); BLOOD UREA NITROGEN 14 MG/DL (7-18); CALCIUM LEVEL 7.3 MG/DL (8.5-10.1); CARBON DIOXIDE LEVEL 27 MEQ/L (21-32); CHLORIDE LEVEL 103 MEQ/L (98-107); CREATININE FOR GFR 0.82 MG/DL (0.70-1.30); GLOMERULAR FILTRATION RATE > 60.0 (>60); GLUCOSE, FASTING 115 MG/DL (70-100); POTASSIUM SERUM 3.9 MEQ/L (3.5-5.1); SODIUM LEVEL 138 MEQ/L (136-145); TOTAL PROTEIN 5.4 GM/DL (6.4-8.2)
[2018-01-20] MEDS: BUDESONIDE 0.25 MG/2 ML INHALATION SUSPENSION INH ×2 (07:15→20:13)
[2018-01-20] MEDS: MOM 30ML SUSPENSION UDC PO ×2 (08:09→08:12)
[2018-01-20] MEDS: GABAPENTIN 300 MG CAP PO ×3 (08:09→21:04)
[2018-01-20] MEDS: DULoxetine 30 MG CAP (CYMBALTA) PO (08:10)
[2018-01-20] MEDS: NORCO, ANEXSIA 5/325MG TABLET (HYDROcodone/ACETAMINOPHEN) PO (08:10)
[2018-01-20] MEDS: PANTOPRAZOLE 40MG TAB (PROTONIX) PO (08:11)
[2018-01-20] MEDS: DOCUSATE SODIUM 100 MG CAP PO ×3 (08:11→21:00)
[2018-01-20] MEDS ORDERED: PROHANCE 279.3MG/ML 5ML VIAL (A9576) As Ordered (16:16)
[2018-01-20] MEDS ORDERED: PROHANCE 279.3MG/ML 15ML VIAL (A9576) As Ordered (16:17)
[2018-01-20] MEDS: NICOTINE 21MG/24HR 1 EA TRANSDERMAL TD (22:14)
[2018-01-21] MEDS: IPRATROPIUM 0.5MG/ALBUTEROL 2.5MG INH SOL UD 3ML (DUONEB)(J7620) NEB (02:00)
[2018-01-21] MEDS: LORazepam 2 MG/ML VIAL (J2060) IV ×2 (02:01→06:05)
[2018-01-21] MEDS: AZITHROMYCIN INJ 500 MG, VIAL MATE ADAPTER 1 EACH in D5W 250 ML IV (02:02)
[2018-01-21] MEDS: cefTRIAXone SOD 1 GM in D5W MINI-BAG PLUS 50 ML IV (03:19)
[2018-01-21 05:24] LABS: HEMATOCRIT 39.5 % (42.0-52.0); MEAN CORPUSCULAR HEMOGLOBIN 30.4 pg (27.0-33.0); MEAN CORPUSCULAR HGB CONC 32.9 g/dl (32.0-36.5); MEAN CORPUSCULAR VOLUME 92.5 fl (80.0-96.0); PLATELET COUNT, AUTOMATED 415 10^3/uL (150-450); RED BLOOD COUNT 4.27 10^6/uL (4.30-6.10); RED CELL DISTRIBUTION WIDTH 14.2 % (11.5-14.5); WHITE BLOOD COUNT 14.3 10^3/uL (4.0-10.0)
[2018-01-21 05:34] LABS: INR 0.95; PROTHROMBIN TIME 12.7 SECONDS (12.1-14.4)
[2018-01-21] MEDS: HEPARIN SOD (PORCINE) 5000 UNITS/ML VIAL SC (05:43)
[2018-01-21] MEDS: KETOROLAC 30 MG/ML VIAL (J1885) IV (05:44)
[2018-01-21 05:49] LABS: ALBUMIN 2.1 GM/DL (3.2-5.2); ALBUMIN/GLOBULIN RATIO 0.53 (1.00-1.93); ALKALINE PHOSPHATASE 76 U/L (45-117); ALT/SGPT 44 U/L (12-78); ANION GAP 5 MEQ/L (8-16); AST/SGOT 25 U/L (7-37); BILIRUBIN,TOTAL 0.2 MG/DL (0.2-1.0); BLOOD UREA NITROGEN 9 MG/DL (7-18); CALCIUM LEVEL 8.2 MG/DL (8.5-10.1); CARBON DIOXIDE LEVEL 29 MEQ/L (21-32); CHLORIDE LEVEL 105 MEQ/L (98-107); CREATININE FOR GFR 0.72 MG/DL (0.70-1.30); GLOMERULAR FILTRATION RATE > 60.0 (>60); GLUCOSE, FASTING 94 MG/DL (70-100); POTASSIUM SERUM 4.3 MEQ/L (3.5-5.1); SODIUM LEVEL 139 MEQ/L (136-145); TOTAL PROTEIN 6.1 GM/DL (6.4-8.2)
[2018-01-21] MEDS: ACETAMINOPHEN TAB 650MG DOSE (2X325MG) PO (05:51)
== END 2018-01-21 06:37 | disposition short-term general hospital (02) | DRG 680 ==
LOC: M ED INP 01-17 01:11 → M PCU 01-17 03:07 → M ED 21:08
PROC: 0WBC0ZX Excision of Mediastinum, Open Approach, Diagnostic (ICD-10-PCS; 2018-01-19 11:30)
PROC: 0BBH8ZX Excision of Lung Lingula, Via Natural or Artificial Opening Endoscopic, Diagnostic (ICD-10-PCS; 2018-01-19 11:30)
PROC: 0W9B00Z Drainage of Left Pleural Cavity with Drainage Device, Open Approach (ICD-10-PCS; principal; 2018-01-19 12:00)
DX: C7A.8 Other malignant neuroendocrine tumors (principal); J91.0 Malignant pleural effusion; J44.0 Chronic obstructive pulmonary disease with (acute) lower respiratory infection; E55.9 Vitamin D deficiency, unspecified; J44.1 Chronic obstructive pulmonary disease with (acute) exacerbation; G62.9 Polyneuropathy, unspecified; F17.210 Nicotine dependence, cigarettes, uncomplicated; F32.9 Major depressive disorder, single episode, unspecified; F63.81 Intermittent explosive disorder; K21.9 Gastro-esophageal reflux disease without esophagitis; Z79.899 Other long term (current) drug therapy

== ENCOUNTER → 2018-05-22 | Outpatient (CLI) | payer OTHER ==
[~2018-05-22] MED LIST changes: +ALEV220T26 PO; +AMOX500C PO; +AMOX500T PO; +ASPI1TAB20 PO; +ATIV1TAB10 PO; +AZIT500T2 PO; +DOXY100T PO; +DRIS50003 PO; +DULO1CAP2 PO; +DULO30CA47; +GABA-1171 PO; -GABA-279 PO; -GABA-282 PO; +GABA-843 PO; +IBUP80TA PO; +LORA0.5T11; +MELO7.5T7 PO; +MUCI1TAB18 PO; +NARC1SPR; +OXYC-141 PO; -PERM5CR TOP; +PERM5CRE3 TOP; +PRED20TA PO; +PROAAER10 INH; +SERT-138 PO; +SERT-141 PO; +TIZA4TAB4 PO; +TRAZ-160 PO; -TRAZ50TA11 PO; +Tizanidine; +VENTAER INH; +ZOLO100T PO
--- NOTE | 2018-05-23 06:13 | RADONC ---
RADIATION ONCOLOGY CONSULTATION NOTE DATE: 05/22/2018 CHART #: [id number] DIAGNOSIS: Small-cell lung carcinoma. STAGE: IV, metastatic. ECOG PERFORMANCE STATUS: 0. CONSULTATION NOTE: Mr. Berkowitz is a 43-year-old white male with the diagnosis of widely metastatic small cell lung carcinoma who is presenting to us today for consideration of palliative radiation therapy for bony metastasis to the thoracic spine region. HISTORY OF PRESENT ILLNESS: The patient was initially diagnosed with small-cell lung carcinoma on 01/19/2018 when he underwent a biopsy of his mediastinal mass. Once again, pathology revealed small cell lung carcinoma. He was found to have extensive stage disease with widely metastatic bone metastases. He also had multiple pleural based masses as well as bulky left hilar and right hilar lymphadenopathy. The patient has been receiving systemic therapy with Dr. Ryan Rosario at [facility]. He has never had radiation therapy for palliation of his bony metastases. He is now presenting for consideration of palliative radiation therapy. PAST MEDICAL HISTORY: The patient's past medical history is positive for crystal methamphetamine use. It has been otherwise noncontributory. ALLERGIES: The patient reports being allergic to MICROFOAM. SOCIAL HISTORY: The patient smokes one pack of cigarettes per day for 28 years. He does not abuse alcohol. He does have a positive substance abuse issue. REVIEW OF SYSTEMS: The patient's review of systems is positive for physical limitations secondary to shortness of breath, depression, anorexia with a 10-pound weight loss in the past few weeks, chills, weakness in his arms and legs, decreased energy, chest pain, generalized aches and pains, shortness of breath, dental problems (he is edentulous) and some burning urine. He denies nausea, vomiting, neurological problems or bowel difficulties. PHYSICAL EXAMINATION: The patient is a well-developed, well-nourished male in no acute distress. HEENT exam is normocephalic, atraumatic. Extraocular movements are intact. There is no palpable cervical, supraclavicular, infraclavicular, axillary, or inguinal lymphadenopathy present. Lungs are clear to auscultation and percussion. Heart has a regular rate and rhythm. Abdomen is benign with no hepatosplenomegaly, masses, or tenderness. Rectal examination reveals a normal anal sphincter tone. His prostate is smooth with no evidence of nodularity. Skeletal examination reveals no tenderness to pressure or percussion of the bony skeleton. Extremities reveal no clubbing, cyanosis, or edema. Neurologic exam is grossly intact, as is the remainder of the physical examination. ASSESSMENT: I believe the patient is a candidate for external beam radiation therapy and I have so informed him. I have discussed with the patient in detail the potential benefits as well as possible acute and chronic sequelae of external beam radiation therapy. We have discussed logistics of treatment planning, simulation and subsequent fractionated daily radiation treatments. At this time, I do not have copies of the patient's actual scans and our computer system is down. I am attempting to obtain them. Once we obtain all the actual images and information, further recommendations will be made. Thank you for allowing us to participate in the care of this very pleasant gentleman. If I could be of any further assistance, please feel free to contact me anytime. cc: Ryan Manrique MD
== END ==
LOC: M ONCR 09:59
PROVIDERS: ATTEND Radiology Radiation Oncology
DX: C34.90 Malignant neoplasm of unspecified part of unspecified bronchus or lung (principal)

== ENCOUNTER 2018-05-24 19:13 | Emergency (ER) | payer OTHER ==
[~2018-05-24] VITALS: Ht 170.2 cm; Wt 75.9 kg
[~2018-05-24 19:13] MED LIST changes: -ATIV1TAB10 PO; -OXYC-141 PO; -ZOLO100T PO
[2018-05-24] MEDS ORDERED: ATIV1TAB10 PO (19:21)
[2018-05-24] MEDS ORDERED: ZOLO100T PO (19:21)
[2018-05-24] MEDS ORDERED: OXYC-141 PO (19:21)
[2018-05-24] MEDS ORDERED: IPRATROPIUM 0.5MG/ALBUTEROL 2.5MG INH SOL UD 3ML (DUONEB)(J7620) NEB ONE (20:00)
[2018-05-24 20:24] LABS: BASO % 0.5 % (0.0-1.0); EOS % 0.5 % (0.0-3.0); HEMATOCRIT 33.8 % (42.0-52.0); HEMOGLOBIN 11.2 g/dl (13.5-17.5); LYMPH # 1.2 10^3/uL (1.5-4.5); LYMPH % 14.6 % (24.0-44.0); MEAN CORPUSCULAR HEMOGLOBIN 32.7 pg (27.0-33.0); MEAN CORPUSCULAR HGB CONC 33.1 g/dl (32.0-36.5); MEAN CORPUSCULAR VOLUME 98.5 fl (80.0-96.0); MONO # 0.7 10^3/uL (0.0-0.8); MONO % 8.3 % (0.0-5.0); NEUTROPHILS # 6.3 10^3/uL (1.8-7.7); NEUTROPHILS % 75.6 % (36.0-66.0); PLATELET COUNT, AUTOMATED 200 10^3/uL (150-450); RED BLOOD COUNT 3.43 10^6/uL (4.30-6.10); WHITE BLOOD COUNT 8.3 10^3/uL (4.0-10.0)
[2018-05-24 20:54] LABS: BLOOD UREA NITROGEN 7 MG/DL (7-18); CALCIUM LEVEL 8.4 MG/DL (8.5-10.1); CARBON DIOXIDE LEVEL 27 MEQ/L (21-32); CHLORIDE LEVEL 105 MEQ/L (98-107); CREATININE FOR GFR 0.83 MG/DL (0.70-1.30); GLOMERULAR FILTRATION RATE > 60.0 (>60); GLUCOSE, FASTING 80 MG/DL (70-100); POTASSIUM SERUM 4.3 MEQ/L (3.5-5.1); SODIUM LEVEL 139 MEQ/L (136-145)
[2018-05-24 21:10] LABS: PROTHROMBIN TIME 13.3 SECONDS (12.1-14.4)
[2018-05-24] MEDS ORDERED: PRED20TA PO (22:20)
[2018-05-24] MEDS ORDERED: ALBUTEROL 90 MCG/ACT 8GM HFA INHALER INH ONE (22:30)
[2018-05-24] MEDS ORDERED: methylPREDNISolone INJ 125 MG/2 ML VIAL (J2930) IV ONE (22:30)
[2018-05-24 22:47] VITALS: BP 130/71
--- NOTE | 2018-05-25 09:36 | REP ---
PA and lateral chest: Comparisons are the chest CT of 04/17/2018 and PA and lateral chest of 03/23/2017. The enlarged left hilus identified previously has decreased in size. There is a questionable 7 mm nodule in the left mid lung. This may be artifact at the anterior tip of the left fifth rib. There are no infiltrates or pleural effusions. There has been interval placement of a right IJ Orarpi-H-Awqh catheter with the tip at the confluence of the superior vena cava and right atrium. Cardiac size is normal. Mediastinum and skeletal structures are unremarkable. The previous paratracheal widening has resolved. Impression: The enlarged left hilus has significantly decreased in size. The paratracheal widening has significantly decreased. Questionable left lung nodule as described. Interval placement of a a right IJ [id number]-D-Ddtl. Electronically Signed by Darrius Montenegro MD 05/25/2018 07:46 A
--- NOTE | 2018-05-25 13:27 | ED PDOC ---
Post-Departure Follow-Up certified letter sent to pt re formal read of cxr. when pt calls back obtain pcp name or oncologist name and fax please Ashlee Calvillo MD May 25, 2018 13:27
== END 2018-05-24 22:49 | disposition home or self-care (01) ==
LOC: M ED 19:13
DX: J40 Bronchitis, not specified as acute or chronic (principal); C34.90 Malignant neoplasm of unspecified part of unspecified bronchus or lung; Z92.22 Personal history of monoclonal drug therapy; Z79.899 Other long term (current) drug therapy; F17.210 Nicotine dependence, cigarettes, uncomplicated
CPT/HCPCS: 71046; 80048; 85025; 85610; 87486; 87581; 87633; 87798; 87880; 94640; 94760; 96374; 99284; J2930

== ENCOUNTER 2018-05-27 17:11 | Emergency (ER) | payer OTHER ==
[~2018-05-27] VITALS: Ht 167.6 cm; Wt 72.7 kg
[~2018-05-27 17:11] MED LIST changes: +ATIV1TAB10 PO; +OXYC-141 PO; +ZOLO100T PO
[2018-05-27 17:12] VITALS: BP 95/48
--- NOTE | 2018-05-27 18:16 | REP ---
PA and lateral chest: Comparison is 05/24/2018. The left hilus is enlarged but unchanged. Lung parr otherwise clear. The suspected left lung nodule on the prior study is not identified on the current examination. There is a right IJ central venous catheter, unchanged. Impression: No acute cardiopulmonary findings. Enlarged left hilus, unchanged. Right IJ central venous catheter. Electronically Signed by Darrius Montenegro MD 05/27/2018 06:08 P
[2018-05-27 18:29] LABS: BASO % 0.4 % (0.0-1.0); EOS # 0.1 10^3/uL (0.0-0.50); EOS % 0.5 % (0.0-3.0); HEMATOCRIT 31.4 % (42.0-52.0); HEMOGLOBIN 10.3 g/dl (13.5-17.5); LYMPH # 1.9 10^3/uL (1.5-4.5); LYMPH % 19.3 % (24.0-44.0); MEAN CORPUSCULAR HEMOGLOBIN 32.1 pg (27.0-33.0); MEAN CORPUSCULAR HGB CONC 32.8 g/dl (32.0-36.5); MEAN CORPUSCULAR VOLUME 97.8 fl (80.0-96.0); MONO # 0.8 10^3/uL (0.0-0.8); MONO % 8.3 % (0.0-5.0); NEUTROPHILS % 70.7 % (36.0-66.0); PLATELET COUNT, AUTOMATED 205 10^3/uL (150-450); RED BLOOD COUNT 3.21 10^6/uL (4.30-6.10); WHITE BLOOD COUNT 9.9 10^3/uL (4.0-10.0)
[2018-05-27 18:32] LABS: INR 1.07
[2018-05-27 18:33] LABS: PARTIAL THROMBOPLASTIN TIME 32.6 SECONDS (25.4-37.6)
[2018-05-27 18:53] LABS: ALBUMIN 3.4 GM/DL (3.2-5.2); ALT/SGPT 20 U/L (12-78); BILIRUBIN,DIRECT < 0.1 MG/DL (0.0-0.2); BILIRUBIN,TOTAL 0.1 MG/DL (0.2-1.0); BLOOD UREA NITROGEN 13 MG/DL (7-18); CALCIUM LEVEL 8.4 MG/DL (8.5-10.1); CARBON DIOXIDE LEVEL 31 MEQ/L (21-32); CHLORIDE LEVEL 107 MEQ/L (98-107); CPK CREATINE PHOSPHOKINASE 56 U/L (39-308); CREATININE FOR GFR 0.96 MG/DL (0.70-1.30); FREE T4 1.04 NG/DL (0.76-1.46); GLOMERULAR FILTRATION RATE > 60.0 (>60); GLUCOSE, FASTING 91 MG/DL (70-100); LIPASE 111 U/L (73-393); MB/CK RELATIVE INDEX 4.11 (< OR =4); POTASSIUM SERUM 4.2 MEQ/L (3.5-5.1); SODIUM LEVEL 142 MEQ/L (136-145); THYROID STIMULATING HORMONE 0.745 uIU/ML (0.358-3.740); TOTAL PROTEIN 6.3 GM/DL (6.4-8.2); TROPONIN I < 0.02 NG/ML (< 0.10)
[2018-05-27] MEDS ORDERED: IPRATROPIUM 0.5MG/ALBUTEROL 2.5MG INH SOL UD 3ML (DUONEB)(J7620) NEB ONE (19:30)
[2018-05-27] MEDS: dexameTHASONE 20 MG/5 ML VIAL (J1100) IV ONE ×2 (19:30→20:00)
[2018-05-27] MEDS ORDERED: ISOVUE-370 76% 100ML VIAL (Q9967) As Ordered ONE (19:30)
--- NOTE | 2018-05-27 20:18 | REPVR ---
EXAM: CT Angiography Chest With Contrast EXAM DATE/TIME: 05/27/2018 7:40 PM CLINICAL HISTORY: 43 years old, male; Signs and symptoms; Cough; Additional info: Dysp/hemoptysis TECHNIQUE: Imaging protocol: Axial computed tomographic angiography images of the chest with intravenous contrast using CT angiography protocol. Coronal and sagittal reformatted images were created and reviewed. 3D rendering: MIP reconstructed images were created and reviewed. Radiation optimization: All CT scans at this facility use at least one of these dose optimization techniques: automated exposure control; mA and/or kV adjustment per patient size (includes targeted exams where dose is matched to clinical indication); or iterative reconstruction. Contrast material: isovue 370 Contrast volume: 75 ml Contrast route: iv COMPARISON: CT ANGIO CHEST 01/17/2018 12:50 PM FINDINGS: Pulmonary arteries: Normal. No lower pulmonary emboli. Small peripheral segmental arteries in the left lower lobe mass not visualized. Possibility of occlusion not excluded. Aorta: Normal. No aortic aneurysm. No aortic dissection. Lungs: Small reticular opacity lateral apex on the right. Lobular mass at the left lung base measures 3.8 x 2.7 x 5.6 cm. Finding smaller than demonstrated on the prior examination. Additionally, the other previously demonstrated pleural masses in the left lung no longer visualized. Pleural space: Small medial apical pleural bleb. Heart: Normal. No cardiomegaly. No pericardial effusion. Lymph nodes: Left infrahilar adenopathy has substantially progressed. Increasing size of left superior mediastinal lymphadenopathy measuring up to 2.6 cm maximally. Bones/joints: Multiple sclerotic osseous lesions in the sternum, vertebrae, and ribs consistent with blastic metastatic disease. Findings have dramatically progressed in comparison to the prior study. Soft tissues: Unremarkable. IMPRESSION: 1. Lobular mass at the left lung base measures 3.8 x 2.7 x 5.6 cm. Lesion smaller than demonstrated on the prior examination. Additionally, the other previously demonstrated pleural masses in the left lung are no longer visualized. 2. Left infrahilar adenopathy has progressed. Increasing size of mediastinal lymphadenopathy. 3. Multiple sclerotic osseous lesions consistent with blastic metastatic disease. Findings have dramatically progressed in comparison to the prior study. 4. No aortic dissection. No large pulmonary emboli demonstrated with the exception of small peripheral segmental arteries in the left lower lobe likely occluded secondary to tumor. Electronically signed by: Eugene Ayala On 05/27/2018 20:18:09 PM
--- NOTE | 2018-05-28 21:39 | ECGEPIP ---
Stationary ECG Study 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
--- NOTE | 2018-05-29 16:11 | ED PDOC ---
Post-Departure Follow-Up certified letter sent to pt re formal reading of cta chest for fu Ashlee Calvillo MD May 29, 2018 16:11
== END 2018-05-27 20:06 | disposition left against medical advice (07) ==
LOC: M ED 17:11
DX: R06.00 Dyspnea, unspecified (principal); C34.90 Malignant neoplasm of unspecified part of unspecified bronchus or lung; J44.9 Chronic obstructive pulmonary disease, unspecified; R91.8 Other nonspecific abnormal finding of lung field; Z92.21 Personal history of antineoplastic chemotherapy; Z95.9 Presence of cardiac and vascular implant and graft, unspecified; Z72.0 Tobacco use; Z79.891 Long term (current) use of opiate analgesic; Z79.899 Other long term (current) drug therapy; Z53.21 Procedure and treatment not carried out due to patient leaving prior to being seen by health care provider
CPT/HCPCS: 71046; 71275; 80048; 80076; 82550; 82553; 83690; 84439; 84443; 85025; 85610; 85730; 93005; 93041; 94760; 99284; Q9967

== ENCOUNTER 2018-07-07 14:26 | Emergency (ER) | payer OTHER ==
[~2018-07-07] VITALS: Ht 170.2 cm; Wt 63.6 kg
[~2018-07-07 14:26] MED LIST changes: -TRAZ-160 PO; +TRAZ-252 PO; +TRAZ1TAB10 PO; -TRAZO50TA PO
[2018-07-07] MEDS ORDERED: SUCR1SS (14:37)
[2018-07-07] MEDS ORDERED: ONDA8TAB8 (14:37)
[2018-07-07 15:19] LABS: BASO # 0.1 10^3/uL (0.0-0.2); BASO % 0.7 % (0.0-1.0); EOS # 0.4 10^3/uL (0.0-0.50); HEMATOCRIT 34.8 % (42.0-52.0); HEMOGLOBIN 11.5 g/dl (13.5-17.5); LYMPH # 0.6 10^3/uL (1.5-4.5); LYMPH % 9.6 % (24.0-44.0); MEAN CORPUSCULAR HEMOGLOBIN 33.3 pg (27.0-33.0); MEAN CORPUSCULAR VOLUME 100.9 fl (80.0-96.0); MONO # 0.4 10^3/uL (0.0-0.8); MONO % 6.6 % (0.0-5.0); NEUTROPHILS # 5.1 10^3/uL (1.8-7.7); NEUTROPHILS % 76.5 % (36.0-66.0); PLATELET COUNT, AUTOMATED 343 10^3/uL (150-450); RED BLOOD COUNT 3.45 10^6/uL (4.30-6.10); WHITE BLOOD COUNT 6.7 10^3/uL (4.0-10.0)
[2018-07-07 15:53] LABS: ALBUMIN 3.4 GM/DL (3.2-5.2); ALT/SGPT 12 U/L (12-78); BILIRUBIN,TOTAL 0.4 MG/DL (0.2-1.0); BLOOD UREA NITROGEN 18 MG/DL (7-18); CALCIUM LEVEL 9.5 MG/DL (8.5-10.1); CARBON DIOXIDE LEVEL 29 MEQ/L (21-32); CHLORIDE LEVEL 106 MEQ/L (98-107); CREATININE FOR GFR 0.93 MG/DL (0.70-1.30); GLOMERULAR FILTRATION RATE > 60.0 (>60); GLUCOSE, FASTING 108 MG/DL (70-100); SODIUM LEVEL 139 MEQ/L (136-145); TOTAL PROTEIN 6.7 GM/DL (6.4-8.2)
[2018-07-07 15:53] LABS: AMPHETAMINES LEVEL URINE NEGATIVE (NEGATIVE); BARBITURATES URINE NEGATIVE (NEGATIVE); BENZODIAZEPINES URINE NEGATIVE (NEGATIVE); CANNABINOIDS URINE POSITIVE (NEGATIVE); COCAINE METABOLITE URINE NEGATIVE (NEGATIVE); METHADONE URINE NEGATIVE (NEGATIVE); OPIATES URINE NEGATIVE (NEGATIVE); PHENCYCLIDINE URINE NEGATIVE (NEGATIVE)
[2018-07-07] MEDS ORDERED: ISOVUE-370 76% 100ML VIAL (Q9967) As Ordered ONE (16:17)
--- NOTE | 2018-07-07 17:05 | REP ---
CT chest with IV contrast: History: Mass. History of small cell carcinoma. Comparison CT study is from May 27, 2018. CT contrast dose: 75 ml of intravenous Isovue [address] findings: There is a right-sided Sljero-X-Eiui catheter. Preliminary zigzag machine operator radiograph demonstrates mediastinal widening. Axial CT images confirm the presence of bulky mediastinal lymphadenopathy involving the anterior mediastinum, left paratracheal, and subcarinal lymph node chains. There is left hilar adenopathy. The mediastinal lymphadenopathy has progressed significantly since the most recent CT study of May 27. The largest lymph node in the left anterior mediastinum now measures 4.1 x 3.7 x 4.2 cm, previously 3.0 x 2.3 cm in transverse dimension. There is compression of the brachiocephalic vein in the left anterior mediastinum by the adenopathy. The superior vena cava does not appear to be compressed. There is new and also fairly bulky left axillary lymphadenopathy with some surrounding edema. The largest left axillary lymph node measures 2.5 x 2.3 cm. There is left pleural disease with somewhat nodular pleural thickening and pleural based mass effect posteriorly and medially. A small amount of left pleural fluid is noted. The pleural based mass lesion has grown in the interval since the May 27, 2018 study and currently measures 4.8 x 6.5 x 11.3 cm. There is mild left hilar lymphadenopathy. No left adrenal mass is seen. There is a small nodule in the right adrenal gland measuring 1.4 cm in diameter. This is essentially unchanged. A tiny amount of pericardial fluid is seen. No right axillary adenopathy is appreciated. There is evidence of left supraclavicular lymphadenopathy. On lung window settings, there are scattered subsegmental atelectatic changes. There is some nodularity along the course and distribution of the major fissure on the left, but no definite pulmonary parenchymal nodule is appreciated. There is atelectasis in the left base medially. On bone window settings, there are innumerable sclerotic metastatic foci throughout the visualized skeleton. These appear to be essentially unchanged. Impression: There is evidence of interval progression with fairly bulky mediastinal and new bulky left axillary lymphadenopathy. There is progressive left pleural disease. The left inferior hilar adenopathy is less prominent than on May 27, 2018. Widespread blastic skeletal metastatic foci are seen. The brachiocephalic vein is compressed in the superior mediastinum by the adenopathy. Electronically Signed by Cholo Nguyen MD 07/07/2018 05:08 P
--- NOTE | 2018-07-07 17:12 | REP ---
CT NECK WITH CONTRAST: HISTORY: Neck mass. CONTRAST: Isovue-370, 75 mL Calcifications are present in the tonsils. This is secondary to previous inflammatory disease. The naso-, calista- and hypopharynx, larynx and subglottic trachea are otherwise normal in appearance. The salivary and thyroid glands are normal in size and density. Multiple enlarged lymph nodes are present in the left posterior triangle and left supraclavicular area. These range in size from 1.5 to 3.6 cm. Small lymph nodes less than 1 cm in size are present in the internal jugular chains, right posterior triangles and submandibular areas. Enlarged lymph nodes are present in the mediastinum. Pleural thickening is present in the left hemithorax. IMPRESSION: There are multiple enlarged lymph nodes in the left posterior triangle and left supraclavicular area. Electronically Signed by Thomas Alvarado MD 07/08/2018 07:59 A
[2018-07-07 18:08] VITALS: BP 124/73
--- NOTE | 2018-07-08 18:13 | ED PDOC ---
Post-Departure Follow-Up dr andrew faxed formal report of ct neck for fu Ashlee Calvillo MD July 08, 2018 18:13
--- NOTE | 2018-07-08 18:20 | ED PDOC ---
Post-Departure Follow-Up dr andrew also faxed formal report of ct chest for fu Ashlee Calvillo MD July 08, 2018 18:20
== END 2018-07-07 18:11 | disposition home or self-care (01) ==
LOC: M ED 14:26
DX: C34.90 Malignant neoplasm of unspecified part of unspecified bronchus or lung (principal); R59.9 Enlarged lymph nodes, unspecified; Z92.21 Personal history of antineoplastic chemotherapy; Z79.899 Other long term (current) drug therapy; F17.210 Nicotine dependence, cigarettes, uncomplicated
CPT/HCPCS: 36415; 70491; 71260; 80047; 80053; 80307; 85025; 99284; Q9967

== ENCOUNTER 2018-08-01 01:29 | Emergency (ER) | payer OTHER ==
[~2018-08-01] VITALS: Ht 170.2 cm; Wt 66.8 kg
[~2018-08-01 01:29] MED LIST changes: +ONDA8TAB8 PO; +SUCR1SS
[2018-08-01] MEDS ORDERED: OXYC10TA12 (01:38)
[2018-08-01] MEDS ORDERED: HYDR50CA2 PO (01:38)
[2018-08-01] MEDS ORDERED: DOXY100C37 PO (01:38)
[2018-08-01] MEDS ORDERED: DEXA4TA PO (01:38)
[2018-08-01] MEDS ORDERED: NYST50SS (01:38)
[2018-08-01] MEDS ORDERED: MORP30TASA PO (01:39)
[2018-08-01 03:24] VITALS: BP 120/69
[2018-08-01] MEDS ORDERED: HYDROMORPHONE HCL 0.5 MG/ 0.5 ML SYRINGE (J1170 PER 1) IM ONE (03:45)
== END 2018-08-01 04:10 | disposition home or self-care (01) ==
LOC: M ED 01:29
DX: G89.3 Neoplasm related pain (acute) (chronic) (principal); C34.90 Malignant neoplasm of unspecified part of unspecified bronchus or lung; Z79.899 Other long term (current) drug therapy; Z91.048 Other nonmedicinal substance allergy status
CPT/HCPCS: 96372; 99283; J1170

== ENCOUNTER 2018-08-01 12:17 | Emergency (ER) | payer OTHER ==
[~2018-08-01] VITALS: Ht 170.2 cm; Wt 66.8 kg
[~2018-08-01 12:17] MED LIST changes: +ASPI-524 PO; -ASPI1TAB20 PO; +DEXA4TA PO; -DIPH25CA PO; +DIPH25CA32 PO; +DOXY100C37 PO; -DULO1CAP2 PO; +DULO1CAP5 PO; +HYDR1TAB33 PO; +HYDR50CA2 PO; -HYDRO50TAB PO; +INDO-16 PO; -INDO25CA PO; +MORP30TASA PO; +NYST50SS; +OXYC10TA12
[2018-08-01] MEDS ORDERED: ONDANSETRON 4MG/2ML VIAL (J2405) IV ONE (12:30)
[2018-08-01] MEDS: HYDROMORPHONE HCL 0.5 MG/ 0.5 ML SYRINGE (J1170 PER 1) IV PRN ×4 (12:41→14:55)
[2018-08-01] MEDS ORDERED: ISOVUE-370 76% 100ML VIAL (Q9967) As Ordered ONE (13:53)
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
--- NOTE | 2018-08-01 16:27 | REP ---
CT of the chest with IV contrast: Comparison is 07/07/2018. There is bulky adenopathy at the thoracic inlet extending into the anterior mediastinum as previously. This compresses the innominate vein, as previously. There is bulky anterior mediastinal, paratracheal and subcarinal adenopathy that has slightly increased. There is bulky left axillary adenopathy that has significantly increased. There is left hilar adenopathy is unchanged. There is a left pleural effusion that has increased in size. There is a large subpleural left paraspinal mass that has increased in size. There are left lower lobe lung nodules, not significantly changed. There are new multiple ground-glass densities in the right lung as an. There are numerous blastic skeletal metastases as previously. Impression: The bulky mediastinal and left axillary adenopathy has increased. The left paraspinal mass is increased. The left pleural effusion has increased. The innominate vein is again compressed by the bulky adenopathy. The left lung masses and nodules are again identified. There are multiple right lung ground-glass densities as an interval change. Multiple blastic metastases are unchanged. Electronically Signed by Darrius Montenegro MD 08/01/2018 04:18 P
--- NOTE | 2018-08-01 16:29 | REP ---
CT of the abdomen pelvis with IV contrast, without bowel contrast: Comparison is 04/17/2018. The studies performed. Contiguous with the chest CT this same date. The hepatic parenchyma is homogeneous. The gallbladder is unremarkable. The pancreas and spleen are normal size and unremarkable. The There is a 17 mm right adrenal nodule. This is unchanged. There is now a 10 mm left adrenal nodule. The kidneys are unremarkable. There are multiple enlarged aortocaval nodes as an interval change. There is a mesenteric node lateral to the colonic splenic flexure on image 40, slightly larger than on the comparison study. Pelvis: There is no adenopathy or ascites. The bladder is unremarkable. There are numerous blastic metastases throughout all skeletal structures. This was also present previously. Impression: The bulky aortocaval adenopathy has significantly increased in size. There are now bilateral adrenal nodules. There is a mesenteric nodule lateral to the colonic splenic flexure as previously. Numerous skeletal metastases. No ascites. Electronically Signed by Darrius Montenegro MD 08/01/2018 04:19 P
[2018-08-01 17:00] LABS: HEMATOCRIT 31.1 % (42.0-52.0); HEMOGLOBIN 10.1 g/dl (13.5-17.5); MEAN CORPUSCULAR HEMOGLOBIN 32.8 pg (27.0-33.0); MEAN CORPUSCULAR HGB CONC 32.5 g/dl (32.0-36.5); RED BLOOD COUNT 3.08 10^6/uL (4.30-6.10); WHITE BLOOD COUNT 9.5 10^3/uL (4.0-10.0)
[2018-08-01] MEDS ORDERED: fentaNYL 100 MCG/2 ML INJECTION (J3010) IV ONE ×3 (17:00→19:15)
[2018-08-01 17:14] LABS: PLATELET COUNT, AUTOMATED 47 10^3/uL (150-450)
[2018-08-01 17:18] LABS: ALBUMIN 3.1 GM/DL (3.2-5.2); ALT/SGPT 20 U/L (12-78); BILIRUBIN,DIRECT < 0.1 MG/DL (0.0-0.2); BILIRUBIN,TOTAL 0.2 MG/DL (0.2-1.0); C REACTIVE PROTEIN QUANTITATIV 6.42 MG/DL (0.00-0.30); TOTAL PROTEIN 6.7 GM/DL (6.4-8.2)
[2018-08-01 17:24] LABS: LYMPHOCYTES 4 % (16-52); METAMYELOCYTES 3 % (0-0); MONOCYTES 5 % (0-8); MYELOCYTES 5 % (0-0); NEUTROPHILS 74 % (35-75); PROMYELOCYTES 1 % (0-0)
[2018-08-01 17:25] LABS: ANISOCYTOSIS 1+; PLATELET ESTIMATE MARKED DECREASE (NORMAL)
[2018-08-01 19:53] VITALS: BP 135/71
== END 2018-08-01 19:56 | disposition short-term general hospital (02) ==
LOC: M ED 12:17
DX: G89.3 Neoplasm related pain (acute) (chronic) (principal); C34.90 Malignant neoplasm of unspecified part of unspecified bronchus or lung; C79.51 Secondary malignant neoplasm of bone; Z79.899 Other long term (current) drug therapy; Z91.048 Other nonmedicinal substance allergy status
CPT/HCPCS: 70491; 71260; 74177; 80047; 80076; 85025; 85049; 85055; 86140; 87040; 96374; 96375; 96376; 99285; J1170; J2405; J3010; Q9967

== ENCOUNTER 2018-08-08 14:37 | Inpatient (IN) | payer OTHER ==
[~2018-08-08] VITALS: Ht 170.2 cm; Wt 62.5 kg
[~2018-08-08 14:37] MED LIST changes: +DIPH25CA PO; -DIPH25CA32 PO; -HYDR1TAB33 PO; +HYDRO50TAB PO; -INDO-16 PO; +INDO25CA PO
[2018-08-08] MEDS ORDERED: VALA1TAB2 PO (15:12)
[2018-08-08] MEDS ORDERED: NARC1SPR NARES (15:12)
[2018-08-08] MEDS ORDERED: PEGPOW PO (15:12)
[2018-08-08 15:36] LABS: HEMATOCRIT 19.6 % (42.0-52.0); MEAN CORPUSCULAR HEMOGLOBIN 33.3 pg (27.0-33.0); MEAN CORPUSCULAR HGB CONC 33.2 g/dl (32.0-36.5); MEAN CORPUSCULAR VOLUME 100.5 fl (80.0-96.0); RED BLOOD COUNT 1.95 10^6/uL (4.30-6.10); WHITE BLOOD COUNT 12.1 10^3/uL (4.0-10.0)
[2018-08-08] MEDS ORDERED: NS 1,000 ML IV ONE (16:00)
[2018-08-08 16:15] LABS: BLOOD UREA NITROGEN 99 MG/DL (7-18); CALCIUM LEVEL 8.1 MG/DL (8.5-10.1); CARBON DIOXIDE LEVEL 24 MEQ/L (21-32); CHLORIDE LEVEL 100 MEQ/L (98-107); CPK CREATINE PHOSPHOKINASE 1940 U/L (39-308); CREATININE FOR GFR 1.76 MG/DL (0.70-1.30); GLOMERULAR FILTRATION RATE 45.2 (>60); GLUCOSE, FASTING 99 MG/DL (70-100); MAGNESIUM LEVEL 3.2 MG/DL (1.8-2.4); MB/CK RELATIVE INDEX 2.78 (< OR =4); POTASSIUM SERUM 4.9 MEQ/L (3.5-5.1); SODIUM LEVEL 139 MEQ/L (136-145); TROPONIN I < 0.02 NG/ML (< 0.10)
[2018-08-08 16:29] LABS: HEMOGLOBIN 6.5 g/dl (13.5-17.5)
[2018-08-08 16:30] LABS: PLATELET COUNT, AUTOMATED 13 10^3/uL (150-450)
[2018-08-08 16:47] LABS: ANISOCYTOSIS 4+; LYMPHOCYTES 15 % (16-52); METAMYELOCYTES 5 % (0-0); MONOCYTES 1 % (0-8); MYELOCYTES 5 % (0-0); NEUTROPHILS 68 % (35-75); PLATELET ESTIMATE MARKED DECREASE (NORMAL); TOXIC GRANULATION 2+
[2018-08-08 16:48] LABS: SCHISTOCYTES 1+; TEAR DROP CELLS 1+
[2018-08-08 16:49] LABS: SPHEROCYTES 2+
--- NOTE | 2018-08-08 16:50 | ECGEPIP ---
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
[2018-08-08] MEDS ORDERED: ONDANSETRON 4MG/2ML VIAL (J2405) IV ONE (17:00)
--- NOTE | 2018-08-08 17:03 | REP ---
Clinical: Near-syncope. Comparison: 05/27/2018. Findings: Bilateral atelectasis along with left lower lobe consolidations and moderate possibly partially loculated left pleural effusion represent new findings as compared to prior examination. Cardiac silhouette is grossly normal. [id number] identified with tip in the SVC. Skeletal structures appear intact. Impression: Bibasilar atelectasis with left lower lobe consolidation and moderate partially loculated left pleural effusion. Electronically Signed by Cody Sherwood MD 08/08/2018 04:54 P
[2018-08-08] MEDS ORDERED: COLA100C5 PO (17:22)
[2018-08-08] MEDS ORDERED: GABA-1171 PO (17:22)
[2018-08-08] MEDS ORDERED: OXYC15TA76 PO (17:22)
[2018-08-08] MEDS ORDERED: ONDANSETRON 4MG/2ML VIAL (J2405) IV PRN (18:00)
[2018-08-08] MEDS ORDERED: DOCUSATE SODIUM 100 MG CAP PO PRN (18:00)
[2018-08-08] MEDS ORDERED: MIRALAX *UNIT DOSE* 17GM PACKET PO PRN (18:00)
[2018-08-08] MEDS ORDERED: cefTRIAXone SOD 1 GM in D5W MINI-BAG PLUS 50 ML IV ONE (18:00)
[2018-08-08] MEDS ORDERED: AZITHROMYCIN INJ 500 MG, VIAL MATE ADAPTER 1 EACH in D5W 250 ML IV ONE (18:30)
[2018-08-08] MEDS: hydrOXYzine 50 MG TAB PO PRN (19:29)
[2018-08-08] MEDS: oxyCODONE 5MG TAB PO PRN (19:29)
[2018-08-08] MEDS ORDERED: ACETAMINOPHEN TAB 650MG DOSE (2X325MG) PO ONE (19:45)
[2018-08-08 20:24] VITALS: BP 132/73
--- NOTE | 2018-08-08 20:26 | HPEPDOC ---
General Date of Admission Aug 08, 2018 at 18:17 Date of Service: Aug 08, 2018 Chief Complaint The patient is a 43-year-old male admitted with a reason for visit of Brett;Anemia;Small Cell Lung Ca;Thrombocytopenia. History of Present Illness 43m with extensive stage small cell lung cancer s/p last chemo 3-4 weeks ago presents with syncope. Pt was walking when he was seen to collapse and hit his head. Pt had been getting treatment at [facility] for his cancer. he was told they had exhausted their curative options and he was recommended to go home on hospice with the expectation that he only had a few weeks to live. The pt declined this offer and plans to seek a second opinion at [facility]. He has not been eating or drinking much. He also reports not making much urine and not moving his bowels for days. He denies any new pain although he has pain at several sites of lymphadenopathy. He reports that in the past he has been dnr. When I clarified what that means he says that he wants short attempts to resuscitate him, including cpr and intubation and wants his mother who is his hcp to decide when resuscitative efforts or life support have gone on long enough. denies any recent bleeding Home Medications Scheduled Dexamethasone (Dexamethasone) 4 Mg Tablet, 4 MG PO BID, (Reported) Doxycycline Monohydrate (Doxycycline Monohydrate) 100 Mg Capsule, 100 MG PO BID, (Reported) FILLED 07/30/18 FOR 10 DAYS Gabapentin (Gabapentin) 100 Mg Capsule, 200 MG PO TID, (Reported) Morphine Sulfate (Morphine Sulfate ER) 30 Mg Tablet.er, 60 MG PO Q8H, (Reported) Sertraline Hcl (Zoloft) 100 Mg Tablet, 150 MG PO DAILY, (Reported) Valacyclovir HCl (Valacyclovir) 1,000 Mg Tablet, 1,000 MG PO TID, (Reported) Scheduled PRN Docusate Sodium (Colace) 100 Mg Capsule, 100 MG PO DAILY PRN for CONSTIPATION, (Reported) Hydroxyzine Pamoate (Hydroxyzine Pamoate) 50 Mg Capsule, 50 MG PO Q8H PRN for ANXIETY, (Reported) Naloxone HCl (Narcan) 4 Mg Fulda, 1 SPRAY NARES PRN PRN for RESPIRATORY DEPRESSION, (Reported) Ondansetron (Ondansetron Odt) 8 Mg Tab.rapdis, 8 MG PO TID PRN for NAUSEA OR VOMITING, (Reported) Oxycodone Hcl (Oxycodone HCl) 15 Mg Tablet, 15 MG PO Q4H PRN for PAIN, (Reported) Polyethylene Glycol 3350 (Polyethylene Glycol 3350) 510 Gm Powder, 17 GM PO DAILY PRN for CONSTIPATION, (Reported) Allergies Coded Allergies: TAPE (Verified Allergy, Mild, microfoam tape - madsen skin, 08/08/18) Past Medical History Medical History as above Social History * Smoker: former Smoker A-FIB/CHADSVASC A-FIB History Current/History of A-Fib/PAF?: No Current PO Anticoag Therapy: No Age/Risk Factor Scoring CHADSVASC: CHADSVASC Response (Comments) Value Age Risk Factor Age < 65 years old 0 Gender Risk Factor Male 0 Hx of CHF No 0 Hx of HTN No 0 Hx of Stroke/TIA/or VTE No 0 Hx of Diabetes No 0 Hx of Vascular Disease No 0 Total 0 Treatment Treatment ordered: NONE Review of Systems Constitutional: Reports: Weight Loss Eyes: Denies: Pain, Vision change ENT: Denies: Head Aches, Ear Pain, Dysphagia Skin: Denies: Rash, Lesions, Breakdown Pulmonary: Reports: Dyspnea Cardiovascular: Reports: Lt Headedness Gastrointestinal: Reports: Constipation Genitourinary: Denies: Dysuria, Frequency, Incontinence, Retention Hematologic: Reports: Bruising Musculoskeletal: Denies: Neck Pain, Back Pain, Joint Pain, Muscle Pain, Spasms Neurological: Denies: Weakness, Numbness, Change in speech, Confusion Psych: Reports: Mood Normal; Denies: Depression, Memory Issues Physical Examination General Exam: Positive: Alert, Moderate Distress, Other (cachectic) Eye Exam: Positive: PERRLA, Conjunctiva & lids normal ENT Exam: Positive: Atraumatic; Negative: Mucous membr. moist/pink Neck Exam: Positive: Lymphadenopathy Chest Exam: Positive: Clear to auscultation, Normal air movement Heart Exam: Positive: Tachycardic, Normal S1, Normal S2; Negative: Murmurs Telemetry: Positive: Tachycardia Abdomen Exam: Positive: Normal bowel sounds, Soft; Negative: Tenderness, Hepatospenomegaly Extremity Exam: Positive: Normal pulses; Negative: Clubbing, Cyanosis, Edema Skin Exam: Positive: Nl turgor and temperature; Negative: Breakdown, Lesion Neuro Exam: Positive: Normal Gait, Normal Speech, Cranial Nerves 3-12 NL, Reflexes 2+ Psych Exam: Positive: Mental status NL, Mood NL, Oriented x 3 Vital Signs Vital Signs Date Time Temp Pulse Resp B/P (MAP) Pulse Ox O2 Delivery O2 Flow Rate FiO2 08/08/18 19:45 97.5 120 22 125/69 (87) 90 Nasal Cannula 8.0 Laboratory Data Labs 24H Laboratory Tests 2 08/08/18 15:20: Immature Granulocyte % (Auto) , Nucleated Red Blood Cells % (auto) 6.2H, Neutrophils 68, Band Neutrophils 6, Lymphocytes (Manual) 15L, Monocytes (Manual) 1, Metamyelocytes 5H, Myelocytes 5H, Toxic Granulation 2+, Platelet Estimate MARKED DECREASE, Immature Platelet Fraction 18.4H, Anisocytosis 4+, Macrocytosis 1+, Spherocytes 2+, Tear Drop Cells 1+, Schistocytes 1+, Anion Gap 15, Glomerular Filtration Rate 45.2L, Blood Urea Nitrogen 99H, Creatinine 1.76H, Sodium Level 139, Potassium Level 4.9, Chloride Level 100, Carbon Dioxide Level 24, Calcium Level 8.1L, Total Creatine Kinase 1940H, Magnesium Level 3.2H, Creatine Kinase MB 54.0H, Creatine Kinase MB Relative Index 2.78, Troponin I < 0.02, Thyroid Stimulating Hormone (TSH) 1.270 08/08/18 15:26: POC Glucose (Misc Panel) 110H, POC Sodium (Misc Panel) 136, POC Potassium (Misc Panel) 4.9, POC Chloride (Misc Panel) 97L, POC Total CO2 (Misc Panel) 23.0, POC Blood Urea Nitrogen (Misc Panel 92H, POC Ionized Calcium (Misc Panel) 4.2L, POC Creatinine (Misc Panel) 2.0H, POC Hematocrit (Misc Panel) 18.0L CBC/BMP Laboratory Tests 08/08/18 15:20 Red Blood Count 1.95 L, Mean Corpuscular Volume 100.5 H, Mean Corpuscular Hemoglobin 33.3 H, Mean Corpuscular Hemoglobin Concent 33.2, Red Cell Distribution Width 17.2 H, Calcium Level 8.1 L, Total Creatine Kinase 1940 H Microbiology Microbiology 08/08/18 Blood Culture, Received Pending 08/08/18 Blood Culture, Received Pending Assessment/Plan 43m with extensive SCLC p/w brett, anemia, thrombocytopenia, and syncope syncope needs stat head ct given platelets likely related to dehydration, malnutrition, anemia, and pain meds brett severely dehydrated fluid resuscitation monitor renal function avoid nephrotoxins if not improving would rule out obstruction anemia/thrombocytopenia seems out of typical window for chemo related transfused prbcs transfuse platelets if <10 SCLC will consult oncology prognosis grim full code for now need to continue discussion regarding GOC Plan / VTE VTE Prophylaxis Ordered?: Yes VTE Exclusion Mechanical Proph: N/A:VTE Prophy Ordered VTE Exclusion Pharmacological: Thrombocytopenia ALMA ZAMORANO MD Aug 08, 2018 20:25
[2018-08-08] MEDS: valACYclovir HCL 500 MG TAB PO SCH (21:44)
[2018-08-08] MEDS: MORPHINE 30 MG SA TAB PO SCH (21:44)
[2018-08-08] MEDS: GABAPENTIN 100 MG CAP PO SCH (21:45)
[2018-08-08] MEDS: LR 1,000 ML IV SCH (21:45)
[2018-08-08 23:59] VITALS: BP 136/70
[2018-08-09] VITALS (10 sets, daily range): BP systolic 124–174; BP diastolic 66–87; O2SAT 94–100
[2018-08-09 02:03] LABS: MYOGLOBIN SCREEN, URINE POSITIVE (NEGATIVE)
[2018-08-09 04:50] LABS: HEMATOCRIT 24.8 % (42.0-52.0); HEMOGLOBIN 8.3 g/dl (13.5-17.5); MEAN CORPUSCULAR HEMOGLOBIN 30.4 pg (27.0-33.0); MEAN CORPUSCULAR HGB CONC 33.5 g/dl (32.0-36.5); MEAN CORPUSCULAR VOLUME 90.8 fl (80.0-96.0); RED BLOOD COUNT 2.73 10^6/uL (4.30-6.10); WHITE BLOOD COUNT 9.5 10^3/uL (4.0-10.0)
[2018-08-09 04:54] LABS: PLATELET COUNT, AUTOMATED 13 10^3/uL (150-450)
[2018-08-09 05:09] LABS: BLOOD UREA NITROGEN 64 MG/DL (7-18); CALCIUM LEVEL 7.7 MG/DL (8.5-10.1); CARBON DIOXIDE LEVEL 24 MEQ/L (21-32); CHLORIDE LEVEL 104 MEQ/L (98-107); CREATININE FOR GFR 1.26 MG/DL (0.70-1.30); GLOMERULAR FILTRATION RATE > 60.0 (>60); GLUCOSE, FASTING 121 MG/DL (70-100); POTASSIUM SERUM 4.6 MEQ/L (3.5-5.1); SODIUM LEVEL 140 MEQ/L (136-145)
[2018-08-09] MEDS ORDERED: LR 1,000 ML IV ONE ×2 (05:30→09:45)
[2018-08-09] MEDS: MORPHINE 30 MG SA TAB PO SCH ×3 (05:32→23:47)
[2018-08-09] MEDS: oxyCODONE 5MG TAB PO PRN ×2 (07:28→18:05)
[2018-08-09] MEDS: LR 1,000 ML IV SCH ×2 (07:29→11:44)
[2018-08-09] MEDS: valACYclovir HCL 500 MG TAB PO SCH ×3 (09:48→23:46)
[2018-08-09] MEDS: GABAPENTIN 100 MG CAP PO SCH ×3 (09:48→20:46)
[2018-08-09] MEDS: SERTRALINE HCL 50 MG TAB PO SCH (09:48)
[2018-08-09] MEDS: hydrOXYzine 50 MG TAB PO PRN (09:57)
--- NOTE | 2018-08-09 16:54 | IPNPDOC ---
Subjective Date Seen The patient was seen on 08/09/18. Subjective Chief Complaint/HPI 43m with extensive stage small cell lung cancer s/p last chemo 3-4 weeks ago presents with syncope. Pt was walking when he was seen to collapse and hit his head. Pt had been getting treatment at [facility] for his cancer. He is admitted with severe anemia, thrombocytopenia, severe dehydration with axel and orthostatic hypotension pt feeling somewhat better, still dizzy and orthostatic when standing. Has pain from his cancer in multiple areas. full 10pt ROS was performed and negative with the exception of what is documented above. Objective Physical Examination General Exam: Positive: Alert, Moderate Distress, Other (cachectic) Eye Exam: Positive: PERRLA, Conjunctiva & lids normal ENT Exam: Positive: Atraumatic; Negative: Mucous membr. moist/pink Neck Exam: Positive: Lymphadenopathy Chest Exam: Positive: Clear to auscultation, Normal air movement Heart Exam: Positive: Tachycardic, Normal S1, Normal S2; Negative: Murmurs Telemetry: Positive: Tachycardia Abdomen Exam: Positive: Normal bowel sounds, Soft; Negative: Tenderness, Hepatospenomegaly Extremity Exam: Positive: Normal pulses; Negative: Clubbing, Cyanosis, Edema Skin Exam: Positive: Nl turgor and temperature; Negative: Breakdown, Lesion Neuro Exam: Positive: Normal Gait, Normal Speech, Cranial Nerves 3-12 NL, Reflexes 2+ Psych Exam: Positive: Mental status NL, Mood NL, Oriented x 3 Assessment /Plan Assessment 43m with extensive SCLC p/w axel, anemia, thrombocytopenia, and syncope syncope head ct prelim read ok likely related to dehydration, malnutrition, anemia, and pain meds axel improving with hydration monitor renal function avoid nephrotoxins Lactic acidosis and tachycardia improved somewhat with fluids but started to worsen again will resume abx for possible pneumonia anemia/thrombocytopenia seems out of typical window for chemo related transfused prbcs, appropriate response transfuse platelets if <10 SCLC pt declining to see our oncology group. Need to talk to his primary oncologist at [facility] tomorrow prognosis grim full code for now need to continue discussion regarding GOC Plan/VTE VTE Prophylaxis Ordered?: Yes VTE Exclusion Mechanical Proph: N/A:VTE Prophy Ordered VTE Exclusion Pharmacological: Thrombocytopenia VS, I&O, 24H, Fishbone Vital Signs/I&O Vital Signs Date Time Temp Pulse Resp B/P (MAP) Pulse Ox O2 Delivery O2 Flow Rate FiO2 08/09/18 16:00 97.2 101 18 150/87 (108) 94 8.0 08/08/18 19:45 Nasal Cannula I&O- Last 24 Hours up to 6 AM 08/09/18 06:00 Intake Total 3345 ml Output Total 1250 ml Balance 2095 ml Laboratory Data 24H LABS Laboratory Tests 2 08/09/18 01:55: Urine Color YELLOW, Urine Appearance HAZY, Urine pH 5.0, Urine Specific [place] 1.017, Urine Protein NEGATIVE, Urine Glucose (UA) NEGATIVE, Urine Ketones NEGATIVE, Urine Blood NEGATIVE, Urine Nitrite NEGATIVE, Urine Bilirubin NEGATIVE, Urine Urobilinogen 0.2, Urine Leukocyte Esterase NEGATIVE, Urine WBC (Auto) 0, Urine RBC (Auto) 2, Urine Hyaline Casts (Auto) 1, Urine Bacteria (Auto) NEGATIVE, Urine Squamous Epithelial Cells 0, Urine Sperm (Auto) , Urine Myoglobin POSITIVE 08/09/18 04:36: Nucleated Red Blood Cells % (auto) 6.9H, Anion Gap 12, Glomerular Filtration Rate > 60.0, Lactic Acid Level 4.4*H, Blood Urea Nitrogen 64H, Creatinine 1.26, Sodium Level 140, Potassium Level 4.6, Chloride Level 104, Carbon Dioxide Level 24, Calcium Level 7.7L, Procalcitonin 1.37 08/09/18 08:13: Lactic Acid Level 3.5*H 08/09/18 12:52: Lactic Acid Level 3.7*H CBC/BMP Laboratory Tests 08/09/18 04:36 Red Blood Count 2.73 L, Mean Corpuscular Volume 90.8, Mean Corpuscular Hemoglobin 30.4, Mean Corpuscular Hemoglobin Concent 33.5, Red Cell Distribution Width 17.1 H, Calcium Level 7.7 L Microbiology Microbiology 08/08/18 Blood Culture, Received Pending 08/08/18 Blood Culture, Received Pending ALMA ZAMORANO MD Aug 09, 2018 16:54
[2018-08-09 17:10] LABS: HEMATOCRIT 23.8 % (42.0-52.0); HEMOGLOBIN 8.2 g/dl (13.5-17.5); MEAN CORPUSCULAR HEMOGLOBIN 31.5 pg (27.0-33.0); MEAN CORPUSCULAR HGB CONC 34.5 g/dl (32.0-36.5); MEAN CORPUSCULAR VOLUME 91.5 fl (80.0-96.0); WHITE BLOOD COUNT 8.6 10^3/uL (4.0-10.0)
[2018-08-09 17:12] LABS: PLATELET COUNT, AUTOMATED 13 10^3/uL (150-450)
[2018-08-09] MEDS: PIPERACILLIN/TAZOBACTAM SOD 3.375 GM in D5W MINI-BAG PLUS 50 ML IV SCH ×2 (18:04→23:46)
[2018-08-09 20:49] LABS: ABG BASE EXCESS -0.6 (-2.0-2.0); ABG O2 SATURATION 99.4 % (95.0-99.0); ABG PARTIAL PRESSURE CO2 39.2 mmHg (35.0-45.0); ABG PARTIAL PRESSURE O2 191.1 mmHg (75.0-100.0); ABG TOTAL CO2 25.2 MEQ/L (22.0-29.0); ABG pH (ARTERIAL) 7.405 UNITS (7.350-7.450)
--- NOTE | 2018-08-09 21:07 | REP ---
Clinical: Hypoxia. Comparison: 08/08/2018. Findings: Diffuse bilateral atelectasis/infiltrates (left greater than right) again appreciated as well as moderate partially loculated pleural effusion along the left lateral chest wall which appears to be increased from prior examination. No pneumothorax. Visualize cardiac silhouette stable. [id number] identified with tip in the SVC. Skeletal structures stable. Impression: 1. Bilateral atelectasis/infiltrates ( left greater than right) similar to prior examination. 2. Partially loculated moderate pleural effusion along the left lateral chest wall appears slightly increased from prior examination. Electronically Signed by Cody Sherwood MD 08/09/2018 08:58 P
--- NOTE | 2018-08-09 23:56 | IPNPDOC ---
Date Seen The patient was seen on 08/09/18. Progress Note Called urgently to the patient's bedside as he becomes significantly more hypoxic desaturating into the 70s requiring 100% on a nonrebreather. I did sit visit the patient bedside and examined him at this time. I did recheck a stat ABG and chest x-ray which reveals loculated left-sided pleural effusion possibly parapneumonic in nature. Given the patient's end-stage malignancy I did discuss goals of care with the patient regarding possible chest tube placement resuscitative efforts intubation. He wished to discuss things further with his mother whom I then called and spoke with, the mother and father brother and extended family subsequent presented bedside and we had a lengthy goals of care discussion. At the end of their discussions all questions were answered to their satisfaction the patient has elected for DNR/DNI but not comfort measures only. His ABG is acceptable. Could consider thoracic surgery consult in the morning for possible chest tube placement versus thoracentesis plus or minus tPA. Prognosis poor. A MOLST form was completed signed and witnessed placed in the chart VS, I&O, 24H, Brenda Vital Signs/I&O Vital Signs Date Time Temp Pulse Resp B/P (MAP) Pulse Ox O2 Delivery O2 Flow Rate FiO2 08/09/18 23:47 16 08/09/18 20:00 96.9 109 130/67 (88) 91 15.0 08/08/18 19:45 Nasal Cannula I&O- Last 24 Hours up to 6 AM 08/09/18 06:00 Intake Total 3345 ml Output Total 1250 ml Balance 2095 ml Laboratory Data 24H LABS Laboratory Tests 2 08/09/18 01:55: Urine Color YELLOW, Urine Appearance HAZY, Urine pH 5.0, Urine Specific [place] 1.017, Urine Protein NEGATIVE, Urine Glucose (UA) NEGATIVE, Urine Ketones NEGATIVE, Urine Blood NEGATIVE, Urine Nitrite NEGATIVE, Urine Bilirubin NEGATIVE, Urine Urobilinogen 0.2, Urine Leukocyte Esterase NEGATIVE, Urine WBC (Auto) 0, Urine RBC (Auto) 2, Urine Hyaline Casts (Auto) 1, Urine Bacteria (Auto) NEGATIVE, Urine Squamous Epithelial Cells 0, Urine Sperm (Auto) , Urine Myoglobin POSITIVE 08/09/18 04:36: Nucleated Red Blood Cells % (auto) 6.9H, Anion Gap 12, Glomerular Filtration Rate > 60.0, Lactic Acid Level 4.4*H, Blood Urea Nitrogen 64H, Creatinine 1.26, Sodium Level 140, Potassium Level 4.6, Chloride Level 104, Carbon Dioxide Level 24, Calcium Level 7.7L, Procalcitonin 1.37 08/09/18 08:13: Lactic Acid Level 3.5*H 08/09/18 12:52: Lactic Acid Level 3.7*H 08/09/18 16:51: Nucleated Red Blood Cells % (auto) 8.2H, Immature Platelet Fraction 16.4H, Lactic Acid Level 3.5*H 08/09/18 20:40: Blood Gas Bicarbonate Standard 24.0, Arterial Blood pH 7.405, Arterial Blood Partial Pressure CO2 39.2, Arterial Blood Partial Pressure O2 191.1H, Arterial Blood Total CO2 25.2, Arterial Blood HCO3 24.0, Arterial Blood Base Excess -0.6, Arterial Blood Oxygen Saturation 99.4H CBC/BMP Laboratory Tests 08/09/18 04:36 Red Blood Count 2.73 L, Mean Corpuscular Volume 90.8, Mean Corpuscular Hemoglobin 30.4, Mean Corpuscular Hemoglobin Concent 33.5, Red Cell Distribution Width 17.1 H, Calcium Level 7.7 L 08/09/18 16:51 Red Blood Count 2.60 L, Mean Corpuscular Volume 91.5, Mean Corpuscular Hemoglobin 31.5, Mean Corpuscular Hemoglobin Concent 34.5, Red Cell Distribution Width 17.9 H Microbiology Microbiology 08/08/18 Blood Culture - Preliminary, Resulted No growth after 24 hours . All specim... 08/08/18 Blood Culture - Preliminary, Resulted No growth after 24 hours . All specim... MARY GAUTHIER MD Aug 09, 2018 23:56
[2018-08-10] VITALS (14 sets, daily range): BP systolic 136–171; BP diastolic 65–94; O2SAT 90–99
[2018-08-10] MEDS: hydrOXYzine 50 MG TAB PO PRN (01:25)
[2018-08-10] MEDS: MORPHINE 30 MG SA TAB PO SCH (05:53)
[2018-08-10] MEDS: PIPERACILLIN/TAZOBACTAM SOD 3.375 GM in D5W MINI-BAG PLUS 50 ML IV SCH ×2 (05:54→11:39)
[2018-08-10 06:36] LABS: BASO % 0.5 % (0.0-1.0); EOS % 0.2 % (0.0-3.0); HEMATOCRIT 21.1 % (42.0-52.0); HEMOGLOBIN 7.2 g/dl (13.5-17.5); LYMPH # 0.8 10^3/uL (1.5-4.5); LYMPH % 11.9 % (24.0-44.0); MEAN CORPUSCULAR HEMOGLOBIN 31.2 pg (27.0-33.0); MEAN CORPUSCULAR HGB CONC 34.1 g/dl (32.0-36.5); MEAN CORPUSCULAR VOLUME 91.3 fl (80.0-96.0); MONO # 0.3 10^3/uL (0.0-0.8); MONO % 4.7 % (0.0-5.0); NEUTROPHILS # 4.5 10^3/uL (1.8-7.7); NEUTROPHILS % 68.3 % (36.0-66.0); RED BLOOD COUNT 2.31 10^6/uL (4.30-6.10); WHITE BLOOD COUNT 6.6 10^3/uL (4.0-10.0)
[2018-08-10 06:41] LABS: PLATELET COUNT, AUTOMATED 6 10^3/uL (150-450)
[2018-08-10 07:12] LABS: BLOOD UREA NITROGEN 33 MG/DL (7-18); CALCIUM LEVEL 7.9 MG/DL (8.5-10.1); CARBON DIOXIDE LEVEL 30 MEQ/L (21-32); CHLORIDE LEVEL 102 MEQ/L (98-107); CREATININE FOR GFR 0.83 MG/DL (0.70-1.30); GLOMERULAR FILTRATION RATE > 60.0 (>60); GLUCOSE, FASTING 83 MG/DL (70-100); POTASSIUM SERUM 4.7 MEQ/L (3.5-5.1); SODIUM LEVEL 139 MEQ/L (136-145)
--- NOTE | 2018-08-10 08:36 | REP ---
Clinical: Fall with history of thrombocytopenia . Comparison: 07/15/2017 . Findings: The ventricles, sulci, and cisterns are normal in position and appearance. Whitfield-white differentiation is maintained. No acute intracranial hemorrhage, mass/mass effect, pathology or trauma/injury. No evidence for acute infarction. No extra-axial fluid collection. Calvarium is intact. Paranasal sinuses and mastoid air cells are clear. Impression: Normal noncontrast head CT. No evidence for acute intracranial pathology or trauma/injury. Electronically Signed by Cody Sherwood MD 08/08/2018 05:36 P
--- NOTE | 2018-08-10 08:46 | REP ---
Clinical: History of metastatic small cell lung cancer with possible loculated effusion. Technique: Axial noncontrast images from the thoracic inlet to the upper abdomen with coronal and sagittal re-formations. Comparison: 08/01/2018. Findings: In comparison with prior examination a moderate partially loculated pleural effusion is identified along the left lateral chest wall extending from the apex to the base with a maximal with just below the thoracic inlet at the level of the tracheal bifurcation measuring roughly 4.3 cm maximal width. Effusion has considerably increased when compared to prior examination. Areas of consolidation primarily involving the left upper lobe and left lower lobe as well as bilateral atelectasis and ground-glass opacities are considerably increased from prior examination including dense consolidation to the lingula and left lower lobe with air bronchograms. Extensive adenopathy is again noted involving the mediastinum and left axillary region extending into the surrounding chest wall and thoracic inlet which appears relatively similar to prior examination. Pulmonary vasculature, heart and pericardium are grossly stable. Innumerable sclerotic foci throughout the osseous structures again noted and consistent with metastatic disease. Impression: 1. Moderate partially loculated pleural effusion along the left lateral chest wall increased from prior examination. 2. Significantly increased bilateral areas of consolidation, atelectasis, and ground-glass infiltrates (left greater than right). Electronically Signed by Cody Sherwood MD 08/10/2018 08:38 A
[2018-08-10] MEDS: SERTRALINE HCL 50 MG TAB PO SCH (09:33)
[2018-08-10] MEDS: GABAPENTIN 100 MG CAP PO SCH ×3 (09:33→21:00)
[2018-08-10] MEDS: valACYclovir HCL 500 MG TAB PO SCH (09:33)
[2018-08-10] MEDS ORDERED: SODIUM CHLORIDE 0.9% INJ 10 ML SYR IV PRN (14:00)
--- NOTE | 2018-08-10 15:09 | CR ---
DATE OF CONSULTATION: 08/10/2018 The patient is seen at the request of Dr. Gamble for increasing hypoxia overnight with increasing loculated pleural effusion. HISTORY OF PRESENT ILLNESS: The patient is a 43-year-old white male who has extensive small cell carcinoma, who has undergone both radiation and chemotherapy with the last chemotherapy 2 weeks ago. When he presented for his chemotherapeutic infusion at [facility] this past week they indicated to him that the tumor was not responding that all further efforts were going to be futile and recommended hospice. He wanted to go to [facility] for a second opinion. Overnight, he has become more hypoxic, going from 8 liters nasal cannula to 100% nasal cannula at 25 liters. His saturation is presently at 93 to 95%. He cannot speak in full sentences, and his respirations are rather labored with retractions of his intercostal muscles and accessory neck muscles. He does not give a great history, whereas most of it is obtained from the family. Accompanying this increasing deterioration has been weight loss. There is no complaint of fever or chills. There is a cough that is nonproductive. He does not complain of chest discomfort or chest pain. The family has noted that over the past week that his left arm has become much more swollen and has markedly increased over the last 2 days. Blood was drawn yesterday from the left arm and it bled for 30 minutes. He has been extraordinarily thrombocytopenic with a platelet count of 6. PAST MEDICAL HISTORY: The above small cell cancer. No history of hypertension or prior myocardial infarctions. PAST SURGICAL HISTORY: [place]c pleurodesis on the left side. Evidently, that did not work, according to the family. HABITS: Former smoker. ALLERGIES: No known drug allergies. MEDICATIONS AT HOME: - dexamethasone 4 mg by mouth twice a day - doxycycline 100 mg twice a day for 10 days, filled it on 07/30/2018 - gabapentin 200 mg three times a day - morphine sulfate 80 mg every 8 hours - Zoloft 150 mg daily - valacyclovir 1000 mg three times a day REVIEW OF SYSTEMS: CONSTITUTIONAL: See history of present illness. EYES: Without diplopia. Without amaurosis fugax. Without prior jaundice. MOUTH: Has his own teeth. RESPIRATORY: See history of present illness. CARDIAC: See history of present illness. GASTROINTESTINAL: He has had constipation without nausea or vomiting. GENITOURINARY: Without dysuria or hematuria. HEMATOLOGIC: He has prolonged bleeding times and easy bruising. NEUROLOGIC: Without paralysis or seizures. PSYCHIATRIC: Without pathological anxieties, depressions, or psychoses. PHYSICAL EXAMINATION: Very ill 43-year-old white male in acute distress with shortness of breath. VITAL SIGNS: Temperature 97.6, heart rate is 103 and in a sinus rhythm, respiratory rate recorded is 22 but it is more like 32 with labored breathing and use of accessory muscles. Blood pressure 171/94. He is 95% saturated on 25 liters nasal cannula at 100%. EYES: Shows his pupils to be equal and reactive. Extraocular motors are intact. Sclerae nonicteric. MOUTH: Shows mucous membranes to be pink and moist. Lips and commissures without lesions. There is thrush. NOSE: Without deformity. HEAD: Normocephalic. NECK: Supple. I do not appreciate lymphadenopathy, thyromegaly. Trachea is midline. There is no subcutaneous emphysema. No jugular venous distention (JVD). LUNGS: Show markedly decreased breath sounds on the left side. Right side shows very coarse rales and rhonchi on both inspiration and expiration. Percussion note is dull on the left side, full to the diaphragm on the right side. CARDIAC: Tachycardia without murmurs, clicks, gallops or rubs. I cannot feel his point of maximum impulse (PMI). S1, S2 normal. ABDOMEN: Soft, nontender. Bowel sounds are positive. There is no hepatosplenomegaly. No costovertebral angle tenderness. EXTREMITIES: No pretibial edema. No calf tenderness. The left arm is markedly swollen and cyanotic with venous congestion. SKIN: Warm, dry and perfused except for that of the left upper arm. PSYCHIATRIC: Shows him to be awake, somewhat somnolent and confused. NEUROLOGIC: Gross motor and gross sensation intact, along with gross II through XII intact. INVESTIGATIONS: His platelet count was 13 on admission and dropped to a 6 this morning. He has been transfused two rounds of platelets and it has brought his platelets back to 62. White count is 6.6 with a hemoglobin and hematocrit of 7.2 and 21.1, down from 88.3 and 24.8 yesterday on admission. Differential shows 63% neutrophils, 11% lymphocytes, 4% monocytes. There are no immature forms and no toxic granulations. Chemistries show essentially normal electrolytes with a BUN and creatinine of 33 and 0.83, glucose of 83 and a calcium of 7.9. Lactic acid has ranged from 3.7 to 3.1 this afternoon. His chest x-ray yesterday shows interstitial process in both lungs with what looks to be widened mediastinum on the left side. He has what looks to be most likely lymphangitic spread but some type of interstitial fluid. There is a small opacity on the lateral chest. Today's chest x-ray shows increasing opacity laterally and now extending superiorly. The ascending colon has an increasing amount of fecal matter. His chest CT done this morning confirms the superolateral fluid collection. My suspicion is that it is blood given his clinical presentation. More significantly however, the inferior portion of the lung shows an explosive growth of tumor over the past week when compared to his 08/01/2018 CT. I do not see a pericardial effusion. He has a superior mediastinal mass additionally, giving rise to the widened mediastinum on the chest x-ray. IMPRESSION: 1. Advanced small cell carcinoma with treatment options exhausted for cure. 2. Hypoxia. 3. Pleural effusion, probably hemothorax. 4. Thrombocytopenia. 5. Anemia. PLAN/DISCUSSION: I had a long talk with him and his family. They are in agreement that placing a chest tube or even a catheter would be futile at this point in time. Regretfully, Mr. Berkowitz has very limited lift expectancy and I would even go so far as to say that he will probably not leave the hospital. Hospice consult has already been obtained. It would be good if he could go home on high flow oxygen. He and the family are in agreement with the plan, and I will therefore refrain from doing anything invasive.
[2018-08-10] MEDS ORDERED: ATROPINE SULFATE 1% OP SOLN 2 ML BTL SL PRN (15:15)
[2018-08-10] MEDS ORDERED: BISACODYL 10 MG SUPP PR PRN (15:15)
[2018-08-10] MEDS ORDERED: FLEET ENEMA PR PRN (15:15)
[2018-08-10] MEDS: MORPHINE SULF IN 0.9% NACL 100 MG in APPROPRIATE DILUENT 1 EA IV SCH ×4 (16:16→17:19)
--- NOTE | 2018-08-10 16:46 | IPNPDOC ---
Subjective Date Seen The patient was seen on 08/10/18. Subjective Chief Complaint/HPI 43m with extensive stage small cell lung cancer s/p last chemo 3-4 weeks ago presents with syncope. Pt was walking when he was seen to collapse and hit his head. Pt had been getting treatment at [facility] for his cancer. He is admitted with severe anemia, thrombocytopenia, severe dehydration with axel and orthostatic hypotension became hypoxic overnight, growing loculated effusion. pt much more somnolent. oncology and thoracic surgery were consulted. ct was obtained. family and pt agreeable for hospice/gas [employer] service [employer] full 10pt ROS was performed and negative with the exception of what is documented above. Objective Physical Examination General Exam: Positive: Alert, Moderate Distress, Other (cachectic) Eye Exam: Positive: PERRLA, Conjunctiva & lids normal ENT Exam: Positive: Atraumatic; Negative: Mucous membr. moist/pink Neck Exam: Positive: Lymphadenopathy Chest Exam: Positive: Clear to auscultation, Normal air movement Heart Exam: Positive: Tachycardic, Normal S1, Normal S2; Negative: Murmurs Telemetry: Positive: Tachycardia Abdomen Exam: Positive: Normal bowel sounds, Soft; Negative: Tenderness, Hepatospenomegaly Extremity Exam: Positive: Normal pulses; Negative: Clubbing, Cyanosis, Edema Skin Exam: Positive: Nl turgor and temperature; Negative: Breakdown, Lesion Neuro Exam: Positive: Normal Gait, Normal Speech, Cranial Nerves 3-12 NL, Reflexes 2+ Psych Exam: Positive: Mental status NL, Mood NL, Oriented x 3 Assessment /Plan Assessment 43m with extensive SCLC p/w axel, anemia, thrombocytopenia, and syncope syncope head ct prelim read ok likely related to dehydration, malnutrition, anemia, and pain meds axel improving with hydration monitor renal function avoid nephrotoxins Lactic acidosis and tachycardia improved somewhat with fluids but started to worsen again loculated effusion parapneumonic vs hemothorax anemia/thrombocytopenia seems out of typical window for chemo related transfused prbcs, appropriate response now declining again SCLC made dnr overnight seen by oncology to discuss prognosis agreeable to hospice however cannot really go on high flow n/c made comfort care here started morphine drip 4mg/hr which likely needs to be titrated higher as his 180 mg of ms contin and 15mg prn oxycodone that he takes daily is equivalent to about 3-4mg/hr of iv morphine prn ativan prn atropine no further testing, lab draws medications not related to comfort dced Plan/VTE VTE Prophylaxis Ordered?: Yes VTE Exclusion Mechanical Proph: N/A:VTE Prophy Ordered VTE Exclusion Pharmacological: Thrombocytopenia VS, I&O, 24H, Fishbone Vital Signs/I&O Vital Signs Date Time Temp Pulse Resp B/P (MAP) Pulse Ox O2 Delivery O2 Flow Rate FiO2 08/10/18 14:00 93 25.0 100 08/10/18 12:00 96.8 97 20 137/65 (89) 08/08/18 19:45 Nasal Cannula I&O- Last 24 Hours up to 6 AM 08/10/18 06:00 Intake Total 4160 ml Output Total 2350 ml Balance 1810 ml Laboratory Data 24H LABS Laboratory Tests 2 08/09/18 16:51: Nucleated Red Blood Cells % (auto) 8.2H, Immature Platelet Fraction 16.4H, Lactic Acid Level 3.5*H 08/09/18 20:40: Blood Gas Bicarbonate Standard 24.0, Arterial Blood pH 7.405, Arterial Blood Partial Pressure CO2 39.2, Arterial Blood Partial Pressure O2 191.1H, Arterial Blood Total CO2 25.2, Arterial Blood HCO3 24.0, Arterial Blood Base Excess -0.6, Arterial Blood Oxygen Saturation 99.4H 08/10/18 06:00: Nucleated Red Blood Cells % (auto) 9.9H, Immature Granulocyte % (Auto) 14.4H, White Blood Count 6.6, Red Blood Count 2.31L, Hemoglobin 7.2L, Hematocrit 21.1L, Mean Corpuscular Volume 91.3, Mean Corpuscular Hemoglobin 31.2, Mean Corpuscular Hemoglobin Concent 34.1, Red Cell Distribution Width 17.5H, Platelet Count 6*L, Neutrophils (%) (Auto) 68.3H, Lymphocytes (%) (Auto) 11.9L, Monocytes (%) (Auto) 4.7, Eosinophils (%) (Auto) 0.2, Basophils (%) (Auto) 0.5, Neutrophils # (Auto) 4.5, Lymphocytes # (Auto) 0.8L, Monocytes # (Auto) 0.3, Eosinophils # (Auto) 0.0, Basophils # (Auto) 0.0, Anion Gap 7L, Glomerular Filtration Rate > 60.0, Blood Urea Nitrogen 33H, Creatinine 0.83, Sodium Level 139, Potassium Level 4.7, Chloride Level 102, Carbon Dioxide Level 30, Calcium Level 7.9L 08/10/18 07:53: Lactic Acid Level 2.4*H 08/10/18 12:39: Lactic Acid Followup at 4 Hours 3.1*H CBC/BMP Laboratory Tests 08/09/18 16:51 Red Blood Count 2.60 L, Mean Corpuscular Volume 91.5, Mean Corpuscular Hemoglobin 31.5, Mean Corpuscular Hemoglobin Concent 34.5, Red Cell Distribution Width 17.9 H 08/10/18 06:00 Red Blood Count 2.31 L, Mean Corpuscular Volume 91.3, Mean Corpuscular Hemoglobin 31.2, Mean Corpuscular Hemoglobin Concent 34.1, Red Cell Distribution Width 17.5 H, Neutrophils (%) (Auto) 68.3 H, Lymphocytes (%) (Auto) 11.9 L, Monocytes (%) (Auto) 4.7, Eosinophils (%) (Auto) 0.2, Basophils (%) (Auto) 0.5, Neutrophils # (Auto) 4.5, Lymphocytes # (Auto) 0.8 L, Monocytes # (Auto) 0.3, Eosinophils # (Auto) 0.0, Basophils # (Auto) 0.0, Calcium Level 7.9 L 08/10/18 11:09 08/10/18 13:53 Microbiology Microbiology 08/08/18 Blood Culture - Preliminary, Resulted No growth after 24 hours . All specim... 08/08/18 Blood Culture - Preliminary, Resulted No growth after 24 hours . All specim... ALMA ZAMORANO MD Aug 10, 2018 16:46
[2018-08-10] MEDS: LORazepam 2 MG/ML VIAL (J2060) IV PRN ×2 (17:24→21:53)
[2018-08-11] MEDS: LORazepam 2 MG/ML VIAL (J2060) IV PRN ×4 (01:20→22:27)
[2018-08-11] MEDS: MORPHINE SULF IN 0.9% NACL 100 MG in APPROPRIATE DILUENT 1 EA IV SCH ×4 (07:41→21:56)
[2018-08-11 09:00] VITALS: O2SAT 95
[2018-08-11] MEDS: SERTRALINE HCL 50 MG TAB PO SCH ×2 (09:00→19:58)
[2018-08-11] MEDS: GABAPENTIN 100 MG CAP PO SCH ×3 (09:00→19:58)
[2018-08-11] MEDS: SODIUM CHLORIDE 0.9% INJ 10 ML SYR IV SCH (09:10)
--- NOTE | 2018-08-11 09:14 | CR ---
DATE OF CONSULTATION: 08/10/2018 REFERRING PHYSICIAN: Dr. Darien Campbell REASON FOR CONSULTATION: To determine prognosis from medical oncology standpoint. HISTORY OF PRESENT ILLNESS: This is a 43-year-old unfortunate young male with history of small cell lung cancer who recently progressed on chemotherapy type and reports are not available and they were requested from [facility]. The patient fell a couple of days ago, and he presented to the emergency room (ER) and then was admitted to progressive care unit (PCU). The patient has undergone imaging testing, including a head CT that was unremarkable. There was no evidence of acute intracranial pathology or trauma. In addition to chest x-rays on the day of presentation that showed bibasilar atelectasis with left lower lobe consolidation, moderately partially loculated left pleural effusion. At the time of examination, he was sleeping and the family was present in the room. Therefore, review of systems was not able to be obtained. However, it was reported that, on 08/09/2018, he significantly became more hypoxic with oxygen saturation 70, requiring 100% oxygen; and on 08/10/2018, he required 8 liters of oxygen. The patient has elected for DO NOT RESUSCITATE, DO NOT INTUBATE, but no comfort measures at this point. Therefore, he was not intubated. MEDICATION: Reconciled, reviewed, and updated in EMR. The patient is on dexamethasone, docusate, doxycycline, gabapentin, morphine sulfate, naloxone, Zofran, oxycodone, polyethylene glycol, sertraline, valacyclovir. PAST MEDICAL HISTORY: Altered mental status, elevated lithium level, delusional disorder, methamphetamine abuse, cervical radiculopathy, otitis externa, neck pain, delusion of parasitosis, bug bites, strain of neck muscles, dental caries, gingivitis, superficial foreign body, mood disorder, head injury, major depressive disorders, suicidal risk, hilar adenopathy, community acquired pneumonia, bronchitis. Patient previously left against medical advice. Pain in the metastatic malignancy, rhabdomyolysis in addition to the small cell lung cancer most recently progressed on chemotherapy. Past surgical, family history, social history reviewed, unchanged from previous documentation. PHYSICAL EXAMINATION: Was sleeping but arousable. It appeared that he is in pain. Vital signs: Temperature 96.8, pulse 97, respiratory rate 20, blood pressure 137/65, and patient's oxygen flow was 15-25 on FiO2 of 100%. Patient was not awake or alert, and orientation is not able to be assessed. Lungs: Decreased air entrance on the left side and on the right side was noted. Head and neck: Patient had a solid type of mass on the left upper and trapezius muscle area. The right upper extremity is swollen. Left upper extremity is unremarkable. Extremities: No cyanosis, clubbing, or edema in the lower extremities. Abdomen: Soft, nontender. Organomegaly in the abdomen not noted. Cardiac: S1, S2 regular rhythm and rate. Neurologic: Exam unable to be assessed. LAB DATA: Patient's CBC unremarkable except for hemoglobin 7.2 and platelets 6 post 1 unit of platelet transfusion. Platelet did come up to 28. Lymphocytes 66.3%. Chemistry unremarkable except for BUN 33. Lactic acid was increased from 2.4 to 3.1. IMAGING STUDIES: CT of the chest reviewed with Dr. Rutherford. Report reveals moderate partially loculated pleural effusion along with left lateral chest wall increased from the prior examination. Significantly increased bilateral areas of consolidation and atelectasis on the left greater than the right. ASSESSMENT/PLAN: This is a 43-year-old male with small cell lung cancer per history, recently progressed on chemotherapy with last chemo estimated to have been done 2 weeks prior to 08/03/2018. The patient was advised by [facility] that no other line of chemotherapy can be considered or other treatment. However, the chemotherapy information was not available at the time of dictation. PLAN: 1. Patient's family was counseled about the poor prognosis and agreed to proceed with a hospice referral. Family stated that the patient has not been competent, even though he has been still requesting a second opinion. However, he agreed to become DO NOT INTUBATE and DO NOT RESUSCITATE. 2. Thrombocytopenia. As per the hospitalist service, patient received 1 up to 3 units of platelets to be able to perform tap of pleural effusion. 3. Loculated pleural effusion. Discussed with Dr. Rutherford. Likely to have been due to bleeding due to his low platelet and drop of hemoglobin. I discussed with Dr. Rutherford that performing the pleural tap could be considered palliative to provide patient with comfort. 4. Low hematocrit, 6.5. Patient was transfused 2 units of packed red blood cells (PRBCs), and he is planned to have 2 other units. 5. Low hematocrit and low platelet. Patient at this point, due to his terminal illness, bone marrow biopsy would not be considered and transfuse PRBC/platelet as needed. Should the patient improve in the future and continue to become pancytopenic, bone marrow biopsy could be considered. 6. Small cell lung cancer, poor prognosis, and considered to be terminal. As per medical oncology at [facility]. Therefore, the patient will be referred to hospice. The patient was seen and examined. The plan was formulated as above.
--- NOTE | 2018-08-11 19:30 | IPNPDOC ---
Subjective Date Seen The patient was seen on 08/11/18. Subjective Chief Complaint/HPI 43m with extensive stage small cell lung cancer s/p last chemo 3-4 weeks ago presents with syncope. Pt was walking when he was seen to collapse and hit his head. Pt had been getting treatment at [facility] for his cancer. He is admitted with severe anemia, thrombocytopenia, severe dehydration with axel and orthostatic hypotension pt on morphine drip, still uncomfortable, titrating up for comfort ROS UTO today. Objective Physical Examination General Exam: Positive: Alert, Moderate Distress, Other (cachectic) Eye Exam: Positive: PERRLA, Conjunctiva & lids normal ENT Exam: Positive: Atraumatic; Negative: Mucous membr. moist/pink Neck Exam: Positive: Lymphadenopathy Chest Exam: Positive: Clear to auscultation, Normal air movement Heart Exam: Positive: Tachycardic, Normal S1, Normal S2; Negative: Murmurs Telemetry: Positive: Tachycardia Abdomen Exam: Positive: Normal bowel sounds, Soft; Negative: Tenderness, Hepatospenomegaly Extremity Exam: Positive: Normal pulses; Negative: Clubbing, Cyanosis, Edema Skin Exam: Positive: Nl turgor and temperature; Negative: Breakdown, Lesion Neuro Exam: Positive: Normal Gait, Normal Speech, Cranial Nerves 3-12 NL, Reflexes 2+ Psych Exam: Positive: Mental status NL, Mood NL, Oriented x 3 Assessment /Plan Assessment 43m with extensive SCLC p/w axel, anemia, thrombocytopenia, and syncope syncope head ct ok likely related to dehydration, malnutrition, anemia, and pain meds axel resolved Lactic acidosis and tachycardia improved somewhat with fluids but started to worsen again loculated effusion parapneumonic vs hemothorax anemia/thrombocytopenia seems out of typical window for chemo related transfused prbcs, appropriate response now declining again acute hypoxemic respiratory failure due to pneumonia, loculated effusion possibly hemothorax and lung ca on high flow nc for comfort 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 to discuss prognosis agreeable to hospice however cannot really go on high flow n/c prn ativan prn atropine no further testing, lab draws medications not related to comfort dced Plan/VTE VTE Prophylaxis Ordered?: Yes VTE Exclusion Mechanical Proph: N/A:VTE Prophy Ordered VTE Exclusion Pharmacological: Thrombocytopenia VS, I&O, 24H, Fishbone Vital Signs/I&O Vital Signs Date Time Temp Pulse Resp B/P (MAP) Pulse Ox O2 Delivery O2 Flow Rate FiO2 08/10/18 21:00 25.0 100 08/10/18 14:00 93 08/10/18 12:00 96.8 97 20 137/65 (89) 08/08/18 19:45 Nasal Cannula I&O- Last 24 Hours up to 6 AM 08/11/18 06:00 Intake Total 520 ml Output Total 1920 ml Balance -1400 ml Laboratory Data Microbiology Microbiology 08/08/18 Blood Culture - Preliminary, Resulted No Growth after 48 hours. All Specime... 08/08/18 Blood Culture - Preliminary, Resulted No Growth after 72 hours. All specime... ALMA ZAMORANO MD Aug 11, 2018 19:30
[2018-08-12] MEDS: LORazepam 2 MG/ML VIAL (J2060) IV PRN ×3 (01:38→15:31)
[2018-08-12] MEDS: MORPHINE SULF IN 0.9% NACL 100 MG in APPROPRIATE DILUENT 1 EA IV SCH ×6 (07:25→21:10)
[2018-08-12] MEDS: GABAPENTIN 100 MG CAP PO SCH ×3 (07:58→21:00)
[2018-08-12] MEDS ORDERED: LORazepam 2 MG/ML VIAL (J2060) IV PRN (08:45)
[2018-08-12] MEDS: SODIUM CHLORIDE 0.9% INJ 10 ML SYR IV SCH (09:00)
[2018-08-13] MEDS: LORazepam 2 MG/ML VIAL (J2060) IV PRN ×5 (00:08→12:40)
[2018-08-13] MEDS: MORPHINE SULF IN 0.9% NACL 100 MG in APPROPRIATE DILUENT 1 EA IV SCH ×6 (02:55→13:18)
--- NOTE | 2018-08-13 05:51 | IPNPDOC ---
Text Note Date of Service The patient was seen on 08/12/18. NOTE Pt is comatose, unresponsive. Comfort measures. Gen: unresponsive HEENT: grimaces to pain moves extremities CVS: S1 S2 Lungs: no wheezing no rales Abdomen: soft NT ND Neuro: motor intact Vital Signs Date Time Temp Pulse Resp B/P (MAP) Pulse Ox O2 Delivery O2 Flow Rate FiO2 08/12/18 09:36 25.0 100 08/12/18 01:40 25.0 100 08/11/18 21:30 25.0 100 Intake & Output 08/12/18 06:00 Intake Total 0 ml Output Total 750 ml Balance -750 ml Current Medications Medications (Trade) Dose Ordered Sig/Richard Route PRN Reason Start Time Stop Time Status Last Admin Dose Admin Dexamethasone (Decadron) 4 mg BID@0600,1400 PO 08/09/18 06:00 08/10/18 14:00 4 MG Gabapentin (Neurontin) 200 mg TID PO 08/08/18 21:00 08/10/18 16:59 200 MG Heparin Sodium (Heparin (Flush)) 500 units DAILY IV 08/11/18 09:00 08/11/18 09:10 500 UNITS Hydroxyzine HCl (Atarax) 50 mg Q8H PRN PO ANXIETY 08/08/18 18:00 08/10/18 01:25 50 MG Lorazepam (Ativan) 2 mg Q2HP PRN IV AGITATION 08/12/18 14:45 08/12/18 15:31 2 MG Morphine Sulfate 100 mg/IV Miscellaneous Supplies 100 ml @ 10 mls/hr Q10H IV 08/10/18 15:01 08/12/18 16:00 10 MLS/HR Sertraline HCl (Zoloft) 150 mg DAILY PO 08/09/18 09:00 08/10/18 09:33 150 MG Sodium Chloride (Saline Lock Flush) 10 ml DAILY IV 08/11/18 09:00 08/11/18 09:10 10 ML A/P 43m with extensive SCLC p/w beth, anemia, thrombocytopenia, and syncope 1-Syncope head ct ok likely related to dehydration, malnutrition, anemia, and pain meds 2-BETH resolved 3-Lactic acidosis and tachycardia improved somewhat with fluids but started to worsen again loculated effusion parapneumonic vs hemothorax 4-Anemia/thrombocytopenia seems out of typical window for chemo related transfused prbcs, appropriate response now declining again 5-Acute hypoxemic respiratory failure due to pneumonia, loculated effusion possibly hemothorax and lung ca on high flow nc for comfort 6-SCLC made dnr and legal compliance officer seen by oncology to discuss prognosis agreeable to hospice however cannot really go on high flow n/c prn ativan prn atropine no further testing, lab draws medications not related to comfort dced VS,Fishbone, I+O VS, Fishbone, I+O Vital Signs Date Time Temp Pulse Resp B/P (MAP) Pulse Ox O2 Delivery O2 Flow Rate FiO2 08/12/18 09:36 25.0 100 08/11/18 09:00 95 08/10/18 12:00 96.8 97 20 137/65 (89) 08/08/18 19:45 Nasal Cannula I&O- Last 24 Hours up to 6 AM 08/12/18 06:00 Intake Total 0 ml Output Total 750 ml Balance -750 ml SONI SCHAFFER MD Aug 12, 2018 18:53
[2018-08-13] MEDS: GABAPENTIN 100 MG CAP PO SCH ×2 (07:46→14:04)
[2018-08-13] MEDS: SERTRALINE HCL 50 MG TAB PO SCH (07:46)
[2018-08-13] MEDS: SODIUM CHLORIDE 0.9% INJ 10 ML SYR IV SCH (07:47)
--- NOTE | 2018-08-13 10:34 | IPNPDOC ---
Text Note Date of Service The patient was seen on 08/13/18. NOTE Pt is comatose, unresponsive. Comfort measures. No blood draws. Family at bedside. Gen: unresponsive HEENT: grimaces to pain moves extremities CVS: S1 S2 Lungs: no wheezing no rales Abdomen: soft NT ND Neuro: motor intact Vital Signs Date Time Temp Pulse Resp B/P (MAP) Pulse Ox O2 Delivery O2 Flow Rate FiO2 08/12/18 09:36 25.0 100 08/12/18 01:40 25.0 100 08/11/18 21:30 25.0 100 Intake & Output 08/12/18 06:00 Intake Total 0 ml Output Total 750 ml Balance -750 ml Current Medications Medications (Trade) Dose Ordered Sig/Richard Route PRN Reason Start Time Stop Time Status Last Admin Dose Admin Dexamethasone (Decadron) 4 mg BID@0600,1400 PO 08/09/18 06:00 08/10/18 14:00 4 MG Gabapentin (Neurontin) 200 mg TID PO 08/08/18 21:00 08/10/18 16:59 200 MG Heparin Sodium (Heparin (Flush)) 500 units DAILY IV 08/11/18 09:00 08/11/18 09:10 500 UNITS Hydroxyzine HCl (Atarax) 50 mg Q8H PRN PO ANXIETY 08/08/18 18:00 08/10/18 01:25 50 MG Lorazepam (Ativan) 2 mg Q2HP PRN IV AGITATION 08/12/18 14:45 08/12/18 15:31 2 MG Morphine Sulfate 100 mg/IV Miscellaneous Supplies 100 ml @ 10 mls/hr Q10H IV 08/10/18 15:01 08/12/18 16:00 10 MLS/HR Sertraline HCl (Zoloft) 150 mg DAILY PO 08/09/18 09:00 08/10/18 09:33 150 MG Sodium Chloride (Saline Lock Flush) 10 ml DAILY IV 08/11/18 09:00 08/11/18 09:10 10 ML A/P 43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 with extensive SCLC p/w beth, anemia, thrombocytopenia, and syncope 1-Syncope head ct ok likely related to dehydration, malnutrition, anemia, and pain meds 2-BETH resolved 3-Lactic acidosis and tachycardia improved somewhat with fluids but started to worsen again loculated effusion parapneumonic vs hemothorax 4-Anemia/thrombocytopenia seems out of typical window for chemo related transfused prbcs, appropriate response now declining again 5-Acute hypoxemic respiratory failure due to pneumonia, loculated effusion possibly hemothorax and lung ca on high flow nc for comfort 6-SCLC made 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
--- NOTE | 2018-08-14 13:43 | DS.PDOC ---
Discharge Summary General Date of Admission Aug 08, 2018 at 18:17 Date of Discharge August, Specialist/Consultants Involve: CARMEN STARKEY MD Specialist/Consultants Involve ASSESSMENT/PLAN: This is a 43-year-old male with small cell lung cancer per history, recently progressed on chemotherapy with last chemo estimated to have been done 2 weeks prior to 08/03/2018. The patient was advised by [facility] that no other line of chemotherapy can be considered or other treatment. However, the chemotherapy information was not available at the time of dictation. PLAN: 1. Patient's family was counseled about the poor prognosis and agreed to proceed with a hospice referral. Family stated that the patient has not been competent, even though he has been still requesting a second opinion. However, he agreed to become DO NOT INTUBATE and DO NOT RESUSCITATE. 2. Thrombocytopenia. As per the hospitalist service, patient received 1 up to 3 units of platelets to be able to perform tap of pleural effusion. 3. Loculated pleural effusion. Discussed with Dr. Rutherford. Likely to have been due to bleeding due to his low platelet and drop of hemoglobin. I discussed with Dr. Rutherford that performing the pleural tap could be considered palliative to provide patient with comfort. 4. Low hematocrit, 6.5. Patient was transfused 2 units of packed red blood cells (PRBCs), and he is planned to have 2 other units. 5. Low hematocrit and low platelet. Patient at this point, due to his terminal illness, bone marrow biopsy would not be considered and transfuse PRBC/platelet as needed. Should the patient improve in the future and continue to become pancytopenic, bone marrow biopsy could be considered. 6. Small cell lung cancer, poor prognosis, and considered to be terminal. As per medical oncology at [facility]. Therefore, the patient will be referred to hospice. The patient was seen and examined. The plan was formulated as above. DD: CARMEN STARKEY MD 08/10/18 1401 DT: MILKA 08/10/18 1413 DS: ALEX 08/11/18 1155 08/11/18 1155 Discharge Summary PROCEDURES PERFORMED DURING STAY: None ADMITTING DIAGNOSES: 1. Syncope 2-SCLC 3-tachycardia 4-Anemia/thrombocytopenia 5-Acute hypoxemic respiratory failure 6- Pneumonia 7-BETH DISCHARGE DIAGNOSES: 1. As above. COMPLICATIONS/CHIEF COMPLAINT: Beth;Anemia;Small Cell Lung Ca;Thrombocytopenia. HISTORY OF PRESENT ILLNESS: (As per H&P) 43Y O m with extensive stage small cell lung cancer s/p last chemo 3-4 weeks ago presents with syncope. Pt was walking when he was seen to collapse and hit his head. Pt had been getting treatment at [facility] for his cancer. he was told they had exhausted their curative options and he was recommended to go home on hospice with the expectation that he only had a few weeks to live. The pt declined this offer and plans to seek a second opinion at . He has not been eating or drinking much. He also reports not making much urine and not moving his bowels for days. He denies any new pain although he has pain at several sites of lymphadenopathy. He reports that in the past he has been dnr. When I clarified what that means he says that he wants short attempts to resuscitate him, including cpr and intubation and wants his mother who is his hc p to decide when resuscitative efforts or life support have gone on long enough. denies any recent bleeding HOSPITAL COURSE: Pt was admitted for close monitoring, no acute pathology was found at Head C, chest imaging and the prognosis was explained to the pt and family. Pt became more confused and lethargic, he had respiratory distress. Pt was made DNR and comfort care after discussion with the family, he was placed on pain meds and high flow O2. Decision was made to hold further blood works, also the medications unrelated to comfort care were stopped. Pt on August, Family were at bedside. DISCHARGE MEDICATIONS: Please see below. ALLERGIES: Please see below. PHYSICAL EXAMINATION ON DISCHARGE: Pt has LABORATORY DATA: Please see below. IMAGING: CT Chest: 08/10/18 Impression: 1. Moderate partially loculated pleural effusion along the left lateral isai st wall increased from prior examination. 2. Significantly increased bilateral areas of consolidation, atelectasis, and ground-glass infiltrates (left greater than right). CXR 08/09/18 Impression: 1. Bilateral atelectasis/infiltrates ( left greater than right) similar to prior examination. 2. Partially loculated moderate pleural effusion along the left lateral chest wall appears slightly increased from prior examination. CT Head 08/08/18 Impression: Normal noncontrast head CT. No evidence for acute intracranial pathology or trauma/injury. PROGNOSIS: ACTIVITY: Pt DIET: Pt DISCHARGE PLAN: Pt DISPOSITION: 20 . DISCHARGE INSTRUCTIONS: Pt ITEMS TO FOLLOWUP ON ON OUTPATIENT: Pt DISCHARGE CONDITION: TIME SPENT ON DISCHARGE: Greater than 15 minutes. Vital Signs/I&Os Vital Signs Date Time Temp Pulse Resp B/P (MAP) Pulse Ox O2 Delivery O2 Flow Rate FiO2 08/13/18 09:17 25.0 100 08/13/18 09:16 95 08/10/18 12:00 96.8 97 20 137/65 (89) 08/08/18 19:45 Nasal Cannula l I&O- Last 24 Hours up to 6 AM 08/14/18 06:00 Intake Total 0 ml Output Total 400 ml Balance -400 ml Laboratory Data Labs 24H Laboratory Tests 2 08/14/18 11:07: Lab Scanned Report Transfusion Record Microbiology Microbiology 08/08/18 Blood Culture - Final, Complete NO GROWTH AFTER 5 DAYS 08/08/18 Blood Culture - Final, Complete NO GROWTH AFTER 5 DAYS Discharge Medications Scheduled Dexamethasone (Dexamethasone) 4 Mg Tablet, 4 MG PO BID, (Reported) Doxycycline Monohydrate (Doxycycline Monohydrate) 100 Mg Capsule, 100 MG PO BID, (Reported) FILLED 07/30/18 FOR 10 DAYS Gabapentin (Gabapentin) 100 Mg Capsule, 200 MG PO TID, (Reported) Morphine Sulfate (Morphine Sulfate ER) 30 Mg Tablet.er, 60 MG PO Q8H, (Reported) Sertraline Hcl (Zoloft) 100 Mg Tablet, 150 MG PO DAILY, (Reported) Valacyclovir HCl (Valacyclovir) 1,000 Mg Tablet, 1,000 MG PO TID, (Reported) Scheduled PRN Docusate Sodium (Colace) 100 Mg Capsule, 100 MG PO DAILY PRN for CONSTIPATION, (Reported) Hydroxyzine Pamoate (Hydroxyzine Pamoate) 50 Mg Capsule, 50 MG PO Q8H PRN for ANXIETY, (Reported) Naloxone HCl (Narcan) 4 Mg [place], 1 [place] PRN PRN for RESPIRATORY DEPRESSION, (Reported) Ondansetron (Ondansetron Odt) 8 Mg Tab.rapdis, 8 MG PO TID PRN for NAUSEA OR VOMITING, (Reported) Oxycodone Hcl (Oxycodone HCl) 15 Mg Tablet, 15 MG PO Q4H PRN for PAIN, (Reported) Polyethylene Glycol 3350 (Polyethylene Glycol 3350) 510 Gm Powder, 17 GM PO DAILY PRN for CONSTIPATION, (Reported) Allergies Coded Allergies: TAPE (Verified Allergy, Mild, microfoam tape - madsen skin, 08/08/18) SONI SCHAFFER MD Aug 14, 2018 13:37
== END 2018-08-13 16:19 | disposition expired | DRG 661 ==
LOC: M ED 14:37 → EDBD 14:37 → M ED INP 18:17 → M PCU 20:17 → M MSPAV 08-10 17:50
PROVIDERS: ADMIT Hospitalist; ATTEND Hospitalist
PROC: 30233N1 Transfusion of Nonautologous Red Blood Cells into Peripheral Vein, Percutaneous Approach (ICD-10-PCS; principal; 2018-08-08)
PROC: 30233R1 Transfusion of Nonautologous Platelets into Peripheral Vein, Percutaneous Approach (ICD-10-PCS; 2018-08-08)
DX: D69.6 Thrombocytopenia, unspecified (principal); J96.01 Acute respiratory failure with hypoxia; J90 Pleural effusion, not elsewhere classified; J94.2 Hemothorax; J18.9 Pneumonia, unspecified organism; N17.9 Acute kidney failure, unspecified; E46 Unspecified protein-calorie malnutrition; E87.2 Acidosis; M62.82 Rhabdomyolysis; C34.90 Malignant neoplasm of unspecified part of unspecified bronchus or lung; Z51.5 Encounter for palliative care; Z66 Do not resuscitate; K59.00 Constipation, unspecified; E86.0 Dehydration; I95.1 Orthostatic hypotension; Z79.891 Long term (current) use of opiate analgesic; Z79.899 Other long term (current) drug therapy; Z91.048 Other nonmedicinal substance allergy status; Z87.891 Personal history of nicotine dependence; Z92.3 Personal history of irradiation; Z92.21 Personal history of antineoplastic chemotherapy